=== PATIENT | female | born 1940 | race Caucasian/White ===

== ENCOUNTER 2016-07-22 15:57 | Emergency (ER) | payer MEDICARE ==
[2016-07-22] MEDS ORDERED: IPRATROPIUM/ALBUTEROL 0.5-2.5 MG/3 ML AMPUL NEB ONE ×2 (16:14→16:44)
[2016-07-22] MEDS ORDERED: PREDNISONE 20 MG TABLET PO ONE (16:14)
[2016-07-22] MEDS ORDERED: ASPIRIN 81 MG TABLET, CHEWABLE PO ONE (16:14)
--- NOTE | 2016-07-22 16:15 | ER Document Report ---
ED Medical Screen (RME) - General Stated Complaint: WEAKNESS Mode of Arrival: Wheelchair Information source: Patient Notes: Patient had a cough for the past 6 days. Patient's had a fever off and on. hx: Leukemia, MDS, postherpetic neuralgia I have greeted and performed a rapid initial assessment of this patient. A comprehensive ED assessment and evaluation of the patient, analysis of test results and completion of the medical decision making process will be conducted by additional ED providers. TRAVEL OUTSIDE OF THE [place] IN LAST 30 DAYS: No - Related Data Allergies/Adverse Reactions: nitrofurantoin macrocrystalline [From Macrobid] Allergy (Severe, Verified 16:11) Hives, breathing problems Sulfa (Sulfonamide Antibiotics) Allergy (Severe, Verified 07/22/16 16:11) Iodinated Contrast Media - Oral and [IV Dye, Iodine Containing] Allergy ( Intermediate, Verified 07/22/16 16:11) Hives Tetanus Vaccines and Toxoid [Tetanus] Allergy (Verified 07/22/16 16:11) Past Medical History - Past Medical History Cardiac Medical History: Denies: Hx Coronary Artery Disease, Hx Heart Attack, Hx Hypertension Pulmonary Medical History: Reports: Hx Bronchitis, Hx Pneumonia Denies: Hx Asthma, Hx COPD Neurological Medical History: Denies: Hx Cerebrovascular Accident, Hx Seizures Malignancy Medical History: Reports: Hx Leukemia GI Medical History: Reports: Hx Irritable Bowel Musculoskeltal Medical History: Reports Hx Arthritis, Reports Hx Fibromyalgia, Reports Hx Musculoskeletal Trauma Psychiatric Medical History: Reports: Hx Anxiety Past Surgical History: Reports: Hx Abdominal Surgery - colon resection, Hx Appendectomy, Hx Bowel Surgery - colectomy, Hx Breast Surgery - L breast lump; non-cancerous, Hx Cholecystectomy, Hx Hysterectomy, Hx Orthopedic Surgery - L knee--torn meniscus, Hx Tonsillectomy - Immunizations Immunizations up to date: Yes Hx Diphtheria, Pertussis, Tetanus Vaccination: Yes - 2010 allergic to it Physical Exam - Respiratory Respiratory status: No respiratory distress Chest status: Pain with cough Breath sounds: Rhonchi, Wheezing
[2016-07-22] MEDS ORDERED: ONDANSETRON HCL INJ/PF 4 MG/2 ML SDV IV ONE (16:44)
[2016-07-22 17:40] LABS: HEMATOCRIT 38.3 % (36.0-47.0); HEMOGLOBIN 13.1 g/dL (12.0-15.5); MEAN CORPUSCULAR HEMOGLOBIN 30.2 pg (27.0-33.4); MEAN CORPUSCULAR HGB CONC 34.2 g/dL (32.0-36.0); MEAN CORPUSCULAR VOLUME 88 fl (80-97); RED BLOOD COUNT 4.33 10^6/uL (3.72-5.28); WHITE BLOOD COUNT 4.3 10^3/uL (4.0-10.5)
[2016-07-22 18:02] LABS: ALANINE AMINOTRANSFERASE 210 U/L (9-52); ALBUMIN 3.5 g/dL (3.5-5.0); ALKALINE PHOSPHATASE 170 U/L (38-126); ANION GAP 10 (5-19); ASPARTATE AMINO TRANSFERASE 193 U/L (14-36); BILIRUBIN,TOTAL 1.1 mg/dL (0.2-1.3); BLOOD UREA NITROGEN 10 mg/dL (7-20); CALCIUM 9.4 mg/dL (8.4-10.2); CARBON DIOXIDE 29 mmol/L (22-30); CHLORIDE 98 mmol/L (98-107); CREATINE KINASE 20 U/L (30-135); CREATININE RESULT 0.79 mg/dL (0.52-1.25); GLUCOSE 154 mg/dL (75-110); POTASSIUM 3.8 mmol/L (3.6-5.0); SODIUM 136.5 mmol/L (137-145); TOTAL PROTEIN 6.5 g/dL (6.3-8.2)
--- NOTE | 2016-07-22 18:07 | ER Document Report ---
ED Respiratory Problem - General Chief Complaint: Cough Stated Complaint: WEAKNESS Mode of Arrival: Wheelchair Notes: The patient is a 75-year-old female, past medical history leukemia (in remission ), fibromyalgia, HTN, bronchitis, IBS, presents with 1 week of dry cough and nausea. She ran out of her albuterol. She is on multiple doses of pain medication including by mouth Dilaudid and [place]. She denies vomiting, fevers, vomiting, chest pain, back pain, leg swelling, sputum or rash. TRAVEL OUTSIDE OF THE [place] IN LAST 30 DAYS: No - Related Data Allergies/Adverse Reactions: nitrofurantoin macrocrystalline [From Macrobid] Allergy (Severe, Verified 16:11) Hives, breathing problems Sulfa (Sulfonamide Antibiotics) Allergy (Severe, Verified 07/22/16 16:11) Iodinated Contrast Media - Oral and [IV Dye, Iodine Containing] Allergy ( Intermediate, Verified 07/22/16 16:11) Hives Tetanus Vaccines and Toxoid [Tetanus] Allergy (Verified 07/22/16 16:11) Past Medical History - General Information source: Patient - Social History Smoking Status: Unknown if Ever Smoked Chew tobacco use (# tins/day): No Frequency of alcohol use: None Drug Abuse: None Family History: Arthritis, CAD, CVA, DM, Hyperlipidemia, Hypertension, Malignancy Patient has suicidal ideation: No Patient has homicidal ideation: No - Past Medical History Cardiac Medical History: Denies: Hx Coronary Artery Disease, Hx Heart Attack, Hx Hypertension Pulmonary Medical History: Reports: Hx Bronchitis, Hx Pneumonia Denies: Hx Asthma, Hx COPD Neurological Medical History: Denies: Hx Cerebrovascular Accident, Hx Seizures Renal/ Medical History: Denies: Hx Peritoneal Dialysis Malignancy Medical History: Reports: Hx Leukemia GI Medical History: Reports: Hx Irritable Bowel Musculoskeltal Medical History: Reports Hx Arthritis, Reports Hx Fibromyalgia, Reports Hx Musculoskeletal Trauma Psychiatric Medical History: Reports: Hx Anxiety Past Surgical History: Reports: Hx Abdominal Surgery - colon resection, Hx Appendectomy, Hx Bowel Surgery - colectomy, Hx Breast Surgery - L breast lump; non-cancerous, Hx Cholecystectomy, Hx Hysterectomy, Hx Orthopedic Surgery - L knee--torn meniscus, Hx Tonsillectomy - Immunizations Immunizations up to date: Yes Hx Diphtheria, Pertussis, Tetanus Vaccination: Yes - 2010 allergic to it Review of Systems - Review of Systems Notes: REVIEW OF SYSTEMS: CONSTITUTIONAL: -fevers, -chills EENT: -eye pain, -difficulty swallowing, -nasal congestion CARDIOVASCULAR:-chest pain, -syncope. RESPIRATORY: +cough, -SOB GASTROINTESTINAL: -abdominal pain, +nausea, -vomiting, -diarrhea GENITOURINARY: -dysuria, -hematuria MUSCULOSKELETAL: -back pain, -neck pain SKIN: -rash or skin lesions. HEMATOLOGIC: -easy bruising or bleeding. LYMPHATIC: -swollen, enlarged glands. NEUROLOGICAL: -altered mental status or loss of consciousness, -headache, - neurologic symptoms PSYCHIATRIC: -anxiety, -depression. ALL OTHER SYSTEMS REVIEWED AND NEGATIVE. Physical Exam - Vital signs Vitals: Temp Pulse Resp BP Pulse Ox 97.8 F 113 H 17 124/80 98 07/22/16 16:12 07/22/16 16:12 07/22/16 16:12 07/22/16 16:12 07/22/16 16:12 - Notes Notes: PHYSICAL EXAMINATION: GENERAL: Well-appearing, well-nourished and in no acute distress. HEAD: Atraumatic, normocephalic. EYES: Pupils equal round and reactive to light, extraocular movements intact, sclera anicteric, conjunctiva are normal. ENT: nares patent, oropharynx clear without exudates. Moist mucous membranes. NECK: Normal range of motion, supple without lymphadenopathy LUNGS: B/L rhonchi and mild end-expiratory wheezing. No respiratory distress. HEART: Regular rate and rhythm without murmurs ABDOMEN: Soft, nontender, normoactive bowel sounds. No guarding, no rebound. No masses appreciated. EXTREMITIES: Normal range of motion, no pitting or edema. No cyanosis. NEUROLOGICAL: Cranial nerves grossly intact. Normal speech, normal gait. Normal sensory, motor, and reflex exams. PSYCH: Normal mood, normal affect. SKIN: Warm, Dry, normal turgor, no rashes or lesions noted. Course - Re-evaluation Re-evalutation: Patient feels much better after prednisone and albuterol. No respiratory distress and no pneumonia on x-ray. Family requesting refill of her Zofran. She is tolerating fluids without nausea or vomiting. Elevated liver enzymes are at baseline and consistent with her fatty liver disease. She denies any chest pain and troponin is negative. Her tachycardia resolved down to 80. Will discharge home with follow-up at primary care physician. Given strict return precautions and patient and understand. Also provided a copy of her labs and x-ray results. - Vital Signs Vital signs: Temp Pulse Resp BP Pulse Ox 97.8 F 113 H 15 124/80 92 07/22/16 16:12 07/22/16 16:12 07/22/16 18:00 07/22/16 16:12 07/22/16 18:00 - Laboratory Result Diagrams: 07/22/16 17:04 07/22/16 17:04 Laboratory results interpreted by me: 07/22/16 07/22/16 17:04 17:04 RDW 15.0 H Plt Count 82 L Seg Neuts % (Manual) 31 L Band Neutrophils % 1 L Lymphocytes % (Manual) 46 H Monocytes % (Manual) 17 H Abs Neuts (Manual) 1.4 L Sodium 136.5 L Glucose 154 H AST 193 H ALT 210 H Alkaline Phosphatase 170 H Creatine Kinase 20 L - Diagnostic Test Radiology reviewed: Image reviewed, Reports reviewed Radiology results interpreted by me: CXR: NAD - EKG Interpretation by Me EKG shows normal: Sinus rhythm, Intervals, QRS Complexes, ST-T Waves [place]/QRS: Left axis deviation Discharge - Discharge Clinical Impression: Bronchitis Condition: Good Disposition: HOME, SELF-CARE Additional Instructions: BRONCHITIS: You have acute bronchitis. This disease is an infection or inflammation of the air passageways in your lungs. Symptoms usually include cough, low grade fever, shortness of breath, and wheezing. The cough usually persists for a couple of weeks. Most cases of bronchitis get better without antibiotics. We prescribe antibiotics when we believe bacteria are damaging your airways, or if there's high risk the bronchitis will worsen into pneumonia. Increase your fluid intake. A cool mist humidifier may make your lungs more comfortable. An expectorant (cough medicine that loosens phlegm) can help. If you smoke, STOP!!! Recovery from bronchitis can be somewhat slow, but you should see improvement within a day or two. Repeated episodes of bronchitis may result in lung damage -- for example, chronic bronchitis, recurrent pneumonias, or emphysema. Call the doctor if you develop increasing fever, shortness of breath, chest pain, bloody sputum, or otherwise worsen. If you have not improved at all after several days, contact the physician. BRONCHITIS WITH BRONCHOSPASM (WHEEZING): You have bronchitis with bronchospasm (wheezing). Sometimes people develop wheezing with a chest cold. This occurs either because of an underlying tendency toward asthma or because the virus itself irritates the bronchial tubes. This irritation causes cough, shortness of breath, and wheezing. Emergency treatment of bronchospasm may include adrenaline shots or bronchodilator aerosol. You may feel lightheaded and have a rapid pulse for an hour or two. Rest and get plenty of fluids. At home, we'll treat you with a bronchodilator inhaler. Corticosteroids may be required for some patients. Until you recover, avoid chemical fumes, dusts, pollens, and exercising in very cold or dry air. If you smoke, stop now! Most cases of bronchitis get better without antibiotics. We prescribe antibiotics when we believe bacteria are damaging your airways, or if there's high risk the bronchitis will worsen into pneumonia. Increase your fluid intake. A cool mist humidifier may make your lungs more comfortable. An expectorant (cough medicine that loosens phlegm) can help. Repeated episodes of bronchitis and bronchospasm may result in lung damage -- for example, chronic bronchitis, recurrent pneumonias, or emphysema. If you develop a fever, increased wheezing, chest pain, or severe shortness of breath, you should contact the doctor immediately. INHALED BRONCHODILATORS: You have received a treatment of and/or prescription for an inhaled bronchodilator -- a medication which stimulates the airways in the lung to dilate. This improves the flow of air in asthma, bronchitis, and emphysema. These medicines have some similarity to adrenaline, and can cause similar side effects: shakiness, racing heart, and a sense of nervousness. These side effects decrease with time. Contact your doctor if these side effects are severe. Do not over-use the medicine. Too-frequent use of the inhaler may make it ineffective. Call your doctor if the inhaler is not controlling your symptoms at the prescribed doses. STEROID MEDICATION: You have been given an injection of or oral medicine of the cortisone/ steroid class. This medication is used to control inflammation or allergy. Redd t is usually only given for a short period of time, until the acute process subsides. There are usually no side effects from short-term use of cortisone-like medications. Some persons feel an increased sense of well-being and are not sleepy at bedtime. Long-term use of cortisone medications is best avoided, unless required for a severe condition. If your condition does not remit, or relapses after the course of corticosteroid medication, you should consult your physician. USE OF ACETAMINOPHEN (Tylenol): Acetaminophen may be taken for pain relief or fever control. It's much safer than aspirin, offering a wider range of "safe" dosages. It is safe during . Some brand names are Tylenol, Panadol, Datril, Anacin 3, Tempra, and Liquiprin. Acetaminophen can be repeated every four hours. The following are maximum recommended dosages: >89 pounds or adults 650 mg to 900 mg Acetaminophen can be repeated every four hours. Maximum dose not to exceed 4000 mg a day. SMOKING: If you smoke, you should stop smoking. The tar and chemicals in cigarette smoke are harmful. Smoking has been shown to cause: emphysema chronic bronchitis lung cancer mouth and throat cancer stomach and pancreas cancer premature aging defects In addition, smoking increases ear and lung infections in children of smokers. FOLLOW-UP CARE: If you have been referred to a physician for follow-up care, call the physician s office for an appointment as you were instructed or within the next two days. If you experience worsening or a significant change in your symptoms, notify the physician immediately or return to the Emergency Department at any time for re-evaluation. Prescriptions: Albuterol Sulfate [Proair HFA Inhalation Aerosol 8.5 gm MDI] 2 puff IH Q4H PRN # 1 mdi PRN Reason: Ondansetron [Zofran Odt 4 mg Tablet] 1 - 2 tab PO Q4H PRN #15 tab.rapdis PRN Reason: For Nausea/Vomiting Prednisone [Deltasone 20 mg Tablet] 3 tab PO DAILY 5 Days Referrals: KATIE WEST MD [ACTIVE STAFF] - Follow up as needed
[2016-07-22 18:09] LABS: BAND NEUTROPHILS % (MANUAL) 1 % (3-5); BASOPHILS % (MANUAL) 0 % (0-2); EOSINOPHILS % (MANUAL) 0 % (0-6); LYMPHOCYTES % (MANUAL) 46 % (13-45); TOTAL CELLS COUNTED 100
[2016-07-22 18:13] LABS: ANISOCYTOSIS SLIGHT
[2016-07-22 18:14] LABS: TROPONIN I < 0.012 ng/mL
--- NOTE | 2016-07-22 18:36 | EKG REPORT ---
SEVERITY:- ABNORMAL ECG - PROBABLE SR, ARIFACTS, REC REPEAT EKG VENTRICULAR PREMATURE COMPLEXES LEFT AXIS DEVIATION : Confirmed by: Diaz Reynolds 22-Jul-2016 18:35:24
[2016-07-22 18:47] VITALS: BP 111/55
== END 2016-07-22 18:55 | disposition home or self-care (01) ==
LOC: ER 15:57
DX: J40 Bronchitis, not specified as acute or chronic (principal); R53.1 Weakness; R11.0 Nausea; C95.91 Leukemia, unspecified, in remission; I10 Essential (primary) hypertension; Z88.2 Allergy status to sulfonamides
CPT/HCPCS: 93005; 99285; 96374; 36415; 87040; 82550; 85025; 80053; 84484; 83880; 71020; 93010; A9270 ×3; J2405; J7512; J7620

== ENCOUNTER 2016-08-09 18:03 | Emergency (ER) | payer MEDICARE ==
--- NOTE | 2016-08-09 18:28 | ER Document Report ---
ED Medical Screen (RME) - General Stated Complaint: CHEST PAIN,TROUBLE BREATHING Notes: 75 yo female c/o left sided chest pain radiating into left neck since 1 oclock today. + short of breath. remission AML 5 yrs, IBS, Fibro. no HTN, no DM, nonsmoker, no previous cardiac hx. ASA 325mg taken at home. TRAVEL OUTSIDE OF THE [place] IN LAST 30 DAYS: No - Related Data Allergies/Adverse Reactions: nitrofurantoin macrocrystalline [From Macrobid] Allergy (Severe, Verified 16:11) Hives, breathing problems Sulfa (Sulfonamide Antibiotics) Allergy (Severe, Verified 07/22/16 16:11) Iodinated Contrast Media - Oral and [IV Dye, Iodine Containing] Allergy ( Intermediate, Verified 07/22/16 16:11) Hives Tetanus Vaccines and Toxoid [Tetanus] Allergy (Verified 07/22/16 16:11) Past Medical History - Past Medical History Cardiac Medical History: Denies: Hx Coronary Artery Disease, Hx Heart Attack, Hx Hypertension Pulmonary Medical History: Reports: Hx Bronchitis, Hx Pneumonia Denies: Hx Asthma, Hx COPD Neurological Medical History: Denies: Hx Cerebrovascular Accident, Hx Seizures Renal/ Medical History: Denies: Hx Peritoneal Dialysis Malignancy Medical History: Reports: Hx Leukemia GI Medical History: Reports: Hx Irritable Bowel Musculoskeltal Medical History: Reports Hx Arthritis, Reports Hx Fibromyalgia, Reports Hx Musculoskeletal Trauma Psychiatric Medical History: Reports: Hx Anxiety Past Surgical History: Reports: Hx Abdominal Surgery - colon resection, Hx Appendectomy, Hx Bowel Surgery - colectomy, Hx Breast Surgery - L breast lump; non-cancerous, Hx Cholecystectomy, Hx Hysterectomy, Hx Orthopedic Surgery - L knee--torn meniscus, Hx Tonsillectomy - Immunizations Immunizations up to date: Yes Hx Diphtheria, Pertussis, Tetanus Vaccination: Yes - 2010 allergic to it Physical Exam - Vital signs Vitals: Temp Pulse Resp BP Pulse Ox 97.7 F 63 22 H 137/80 H 94 08/09/16 18:08 08/09/16 18:08 08/09/16 18:08 08/09/16 18:08 08/09/16 18:08 Course - Vital Signs Vital signs: Temp Pulse Resp BP Pulse Ox 97.7 F 63 22 H 137/80 H 94 03/08/17 18:08 08/09/16 18:08 08/09/16 18:08 08/09/16 18:08 08/09/16 18:08
--- NOTE | 2016-08-09 18:40 | ER Document Report ---
ED Cardiac - General Mode of Arrival: Wheelchair Information source: Patient TRAVEL OUTSIDE OF THE [place] IN LAST 30 DAYS: No - HPI Patient complains to provider of: Chest pain Was the onset of pain: Sudden Chest pain radiation location: Left shoulder, Neck Severity now: Severe Chest pain precipitating factors: At Rest Positive cardiac history: No Associated symptoms: Neck pain Relieved by: Nothing <SRIKANTH CLEMENTE - Last Filed: 08/10/16 00:09> <HAYDEN NEWSOME - Last Filed: 08/10/16 03:49> - General Chief Complaint: Chest Pain Stated Complaint: CHEST PAIN,TROUBLE BREATHING Notes: Patient is 75-year-old female presenting to the emergency department concerned of severe chest pain onset last night approximately 12:30 AM. Patient states that this pain radiates into her neck and left shoulder. Patient took an aspirin at 1630 this afternoon. Patient denies cough, but admits to mild constipation for which she took a laxative. Patient denies history of heart disease. Patient has a history of AML and is in remission. (SRIKANTH CLEMENTE) - Related Data Allergies/Adverse Reactions: nitrofurantoin macrocrystalline [From Macrobid] Allergy (Severe, Verified 18:27) Hives, breathing problems Sulfa (Sulfonamide Antibiotics) Allergy (Severe, Verified 08/09/16 18:27) Iodinated Contrast Media - Oral and [IV Dye, Iodine Containing] Allergy ( Intermediate, Verified 08/09/16 18:27) Hives Tetanus Vaccines and Toxoid [Tetanus] Allergy (Verified 08/09/16 18:27) Past Medical History - General Information source: Patient - Social History Smoking Status: Former Smoker Lives with: Spouse/Significant other Family History: Arthritis, CAD, CVA, DM, Hyperlipidemia, Hypertension, Malignancy Patient has suicidal ideation: No Patient has homicidal ideation: No - Past Medical History Cardiac Medical History: Denies: Hx Coronary Artery Disease, Hx Heart Attack, Hx Hypertension Pulmonary Medical History: Reports: Hx Bronchitis, Hx COPD, Hx Pneumonia Denies: Hx Asthma Neurological Medical History: Denies: Hx Cerebrovascular Accident, Hx Seizures Renal/ Medical History: Denies: Hx Peritoneal Dialysis Malignancy Medical History: 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 GI Medical History: Reports: Hx Irritable Bowel Musculoskeltal Medical History: Reports Hx Arthritis, Reports Hx Fibromyalgia, Reports Hx Musculoskeletal Trauma Psychiatric Medical History: Reports: Hx Anxiety Past Surgical History: Reports: Hx Abdominal Surgery - colon resection, Hx Appendectomy, Hx Bowel Surgery - colectomy, Hx Breast Surgery - L breast lump; non-cancerous, Hx Cholecystectomy, Hx Hysterectomy, Hx Orthopedic Surgery - L knee--torn meniscus, Hx Tonsillectomy - Immunizations Immunizations up to date: Yes Hx Diphtheria, Pertussis, Tetanus Vaccination: Yes - 2010 allergic to it <SRIKANTH CLEMENTE - Last Filed: 08/10/16 00:09> Review of Systems - Review of Systems Constitutional: No symptoms reported EENT: No symptoms reported Cardiovascular: See HPI, Chest pain Respiratory: No symptoms reported. denies: Cough Gastrointestinal: See HPI, Constipation Genitourinary: No symptoms reported Female Genitourinary: No symptoms reported Musculoskeletal: See HPI, Neck pain, Other - Left shoulder pain Skin: No symptoms reported Hematologic/Lymphatic: No symptoms reported Neurological/Psychological: No symptoms reported <SRIKANTH CLEMENTE - Last Filed: 08/10/16 00:09> Physical Exam - General General appearance: Alert In distress: Moderate - HEENT Head: Normocephalic, Atraumatic Eyes: Normal Pupils: PERRL - Respiratory Respiratory status: Labored - dyspnea Chest status: Tender - Left chest wall tenderness to palpation. Breath sounds: Normal Chest palpation: Normal - Cardiovascular Rhythm: Tachycardia Heart sounds: Normal auscultation Murmur: No - Abdominal Inspection: Normal Distension: No distension Bowel sounds: Normal Tenderness: Nontender Organomegaly: No organomegaly - Back Back: Normal, Nontender - Extremities General upper extremity: Normal inspection, Nontender, Normal color, Normal ROM , Normal temperature General lower extremity: Normal inspection, Nontender, Normal color, Normal ROM , Normal temperature - Neurological Neuro grossly intact: Yes Cognition: Normal Jimy Coma Scale Eye Opening: Spontaneous Jimy Coma Scale Verbal: Oriented Jimy Coma Scale Motor: Obeys Commands Jimy Coma Scale Total: 15 Speech: Normal - Psychological Associated symptoms: Normal affect, Normal mood - Skin Skin Temperature: Warm Skin Moisture: Diaphoretic Skin Color: Other - [place] <SRIKANTH CLEMENTE - Last Filed: 08/10/16 00:09> Course - Laboratory Result Diagrams: 08/09/16 18:35 08/09/16 18:35 - Consults [facility] Time consulted: 21:22 <SRIKANTH CLEMENTE - Last Filed: 08/10/16 00:09> - Laboratory Result Diagrams: 08/09/16 18:35 08/09/16 18:35 - Diagnostic Test Radiology reviewed: Reports reviewed <HAYDEN NEWSOME - Last Filed: 08/10/16 03:49> - Re-evaluation Re-evalutation: 08/10/16 Patient is a 75-year-old female with a history of AML who presents with left- sided chest pain radiating into her neck and down her arm. Patient states that although she has chronic pain she has never had pain like this before. Patient initially was difficult to get a line on. Patient was given nitroglycerin and Dilaudid. Patient states that nitroglycerin helped her chest pain. Troponin negative 2. No acute findings on EKG except for tachycardia. Patient does have a UTI and apparently had been diagnosed with this. It does not seem related to her chest pain today. Patient was discussed with [facility] for she has gone in the past for her medical care and they have accepted her for transfer for chest pain. Patient is agreeable to this plan and grateful for care. She is medically stable for transfer. Patient has been given Rocephin for her UTI. Patient has an allergy to contrast dye. Nuclear medicine test to evaluate for PE is negative. 08/10/16 04:00 Patient is resting comfortably at this time. Patient is somewhat hypotensive but this is likely from a nitro drip. She is not having chest pain at this time. Medically stable for transfer. Unlikely that [facility] will have beds before 8 AM. Patient care transitioned to Dr. Solorio at 4 AM (HAYDEN NEWSOME) - Vital Signs Vital signs: Temp Pulse Resp BP Pulse Ox 97.7 F 119 H 18 100/57 L 97 08/09/16 18:08 08/10/16 00:30 08/10/16 02:30 08/10/16 02:30 08/10/16 02:30 - Laboratory Laboratory results interpreted by me: 08/09/16 08/09/16 08/10/16 18:35 18:35 00:05 RDW 16.3 H Plt Count 122 L Monocytes % (Manual) 18 H Metamyelocytes % 1 H Abs Monocytes (Manual) 1.6 H Glucose 135 H Total Bilirubin 2.5 H AST 47 H ALT 63 H Alkaline Phosphatase 168 H Lipase 11.9 L Urine Blood SMALL H Urine Nitrite POSITIVE H Ur Leukocyte Esterase MODERATE H - Consults [facility] Reason for consultation: 08/09/16 21:22 Contacted [facility] about patient's case. Recommends transfer and start nitro drip. 08/09/16 23:31 [facility] called back stating that they do not have any beds available and probably won't have any available until tomorrow. (SRIKANTH CLEMENTE) Critical Care Note - Critical Care Note Total time excluding time spent on procedures (mins): 90 - evaluation and management of chest pain with multiple re-evaluations, coordination with transfer center at [facility], multiple re-evaluations, counseling of patient and <HAYDEN NEWSOME - Last Filed: 08/10/16 03:49> Discharge <SRIKANTH CLEMENTE - Last Filed: 08/10/16 00:09> <HAYDEN NEWSOME - Last Filed: 08/10/16 03:49> - Discharge Clinical Impression: Unstable angina UTI (urinary tract infection) Qualifiers: Urinary tract infection type: site unspecified Hematuria presence: without hematuria Qualified Code(s): N39.0 - Urinary tract infection, site not specified Condition: Stable Disposition: [facility] Scribe Attestation: 08/10/16 03:49 I personally performed the services described in the documentation, reviewed and edited the documentation which was dictated to the scribe in my presence, and it accurately records my words and actions. (HAYDEN NEWSOME) Scribe Documentation - Scribe Written by Jj:: Srikanth Clemente 08/09/2016 1840 acting as scribe for :: Inez <SRIKANTH CLEMENTE - Last Filed: 08/10/16 00:09>
[2016-08-09 18:51] LABS: HEMATOCRIT 38.2 % (36.0-47.0); HEMOGLOBIN 13.1 g/dL (12.0-15.5); HGB HCT DIFFERENCE 1.1; MEAN CORPUSCULAR HEMOGLOBIN 30.9 pg (27.0-33.4); MEAN CORPUSCULAR HGB CONC 34.2 g/dL (32.0-36.0); MEAN CORPUSCULAR VOLUME 90 fl (80-97); RED BLOOD COUNT 4.22 10^6/uL (3.72-5.28); RED CELL DISTRIBUTION WIDTH 16.3 % (11.5-14.0); WHITE BLOOD COUNT 9.1 10^3/uL (4.0-10.5)
[2016-08-09] MEDS ORDERED: NITROGLYCERIN 0.4 MG/TAB 25 TAB/BOTTLE SL PRN (18:54)
[2016-08-09 19:03] LABS: ALANINE AMINOTRANSFERASE 63 U/L (9-52); ALBUMIN 4.2 g/dL (3.5-5.0); ALKALINE PHOSPHATASE 168 U/L (38-126); ANION GAP 11 (5-19); ASPARTATE AMINO TRANSFERASE 47 U/L (14-36); BILIRUBIN,TOTAL 2.5 mg/dL (0.2-1.3); BLOOD UREA NITROGEN 10 mg/dL (7-20); CALCIUM 10.1 mg/dL (8.4-10.2); CARBON DIOXIDE 26 mmol/L (22-30); CHLORIDE 104 mmol/L (98-107); CREATININE RESULT 0.71 mg/dL (0.52-1.25); GLUCOSE 135 mg/dL (75-110); LIPASE 11.9 U/L (23-300); POTASSIUM 4.3 mmol/L (3.6-5.0); SODIUM 141.2 mmol/L (137-145); TOTAL PROTEIN 6.7 g/dL (6.3-8.2)
[2016-08-09 19:18] LABS: CREATINE KINASE MB < 0.22 ng/mL (<4.55); TROPONIN I < 0.012 ng/mL
[2016-08-09 19:36] LABS: BASOPHILS % (MANUAL) 0 % (0-2); EOSINOPHILS % (MANUAL) 1 % (0-6); LYMPHOCYTES % (MANUAL) 16 % (13-45); TOTAL CELLS COUNTED 100
[2016-08-09 19:38] LABS: ANISOCYTOSIS 1+; POLYCHROMASIA SLIGHT; TOXIC GRANULATION SLIGHT
[2016-08-09] MEDS ORDERED: HYDROMORPHONE HCL INJ/PF 2 MG/ML AMPULE IV ONE ×2 (19:39→21:13)
[2016-08-09] MEDS ORDERED: NORMAL SALINE 1000 ML 500 ML IV ONE (19:39)
[2016-08-09] MEDS ORDERED: ONDANSETRON 4 MG TAB.RAPDIS PO ONE (20:22)
[2016-08-09] MEDS ORDERED: HYDROMORPHONE HCL INJ/PF 2 MG/ML AMPULE IM ONE (20:23)
[2016-08-09 20:44] LABS: PROTHROMBIN TIME 13.2 SEC (11.4-15.4)
[2016-08-09 20:45] LABS: PARTIAL THROMBOPLASTIN TIME 32.8 SEC (23.5-35.8)
[2016-08-09] MEDS ORDERED: NITROGLYCERIN/D5W 250 ML IV PRN (21:18)
--- NOTE | 2016-08-09 21:38 | EKG REPORT ---
SEVERITY:- ABNORMAL ECG - SINUS TACHYCARDIA VENTRICULAR PREMATURE COMPLEX RUPAL, CONSIDER BIATRIAL ABNORMALITIES BORDERLINE LEFT AXIS DEVIATION PROBABLE POSTERIOR INFARCT NONSPECIFIC T ABNORMALITIES, LATERAL LEADS : Confirmed by: Diaz Reynolds 09-Aug-2016 21:36:54
--- NOTE | 2016-08-09 21:38 | EKG REPORT ---
SEVERITY:- ABNORMAL ECG - SINUS TACHYCARDIA PROBABLE POSTERIOR INFARCT : Confirmed by: Diaz Reynolds 09-Aug-2016 21:37:02
[2016-08-10 00:40] LABS: APPEARANCE,URINE CLOUDY; BILIRUBIN,URINE NEGATIVE (NEGATIVE); GLUCOSE, URINE NEGATIVE (NEGATIVE); KETONES,URINE NEGATIVE (NEGATIVE); LEUKOCYTE ESTERASE,URINE MODERATE (NEGATIVE); NITRITE,URINE POSITIVE (NEGATIVE); PROTEIN,URINE NEGATIVE (NEGATIVE); URINE SPECIFIC GRAVITY 1.015; UROBILINOGEN,URINE NEGATIVE mg/dL (<2.0)
[2016-08-10] MEDS ORDERED: CEFTRIAXONE 1 GM/D5W RTU 50 ML IV ONE (02:29)
[2016-08-10] MEDS ORDERED: LIDOCAINE 1% INJ-PF (10 MG/ML) 30 ML SDV INFIL ONE (03:46)
[2016-08-10] MEDS ORDERED: CEFTRIAXONE INJ 1000 MG VIAL IM ONE (03:46)
[2016-08-10] MEDS: FENTANYL CITRATE INJ/PF 100 MCG/2 ML AMPUL IV PRN ×3 (05:46→15:21)
[2016-08-10] MEDS ORDERED: CEPHALEXIN 500 MG CAPSULE PO SCH (18:00)
[2016-08-10] MEDS ORDERED: ASPIRIN 325 MG TABLET, ENT COATED PO ONE (18:30)
--- NOTE | 2016-08-10 18:33 | PDOC H&P/TRANSFER SUM ---
General Admission Date/PCP: 08/10/2016 PCP: Dr. Ishan Ramirez Transfer Date: 08/10/16 Accepting Facility: [facility] Accepting Physician: Dr. Keith Resuscitation Status: Full Code Chief Complaint: Chest pain - Transfer Diagnosis (1) Unstable angina Current Visit: Yes Diagnosis Summary: Continue aspirin. Start Lipitor 40 mg daily. Continue nitroglycerin drip for symptomatically relief. Hold off on Lovenox for now secondary to thrombocytopenia. Transfer patient to tertiary care facility for interventional management. 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 (2) Chest pain Current Visit: Yes (3) Acute myeloid leukemia Current Visit: Yes Diagnosis Summary: This is currently in remission and is normally followed by Dr. Lacy at [facility]. (4) Anemia Current Visit: Yes (5) Thrombocytopenia Current Visit: Yes (6) UTI (urinary tract infection) Current Visit: Yes Diagnosis Summary: Patient was given one dose of IV Rocephin in the emergency department. She has been started on Keflex 500 mg by mouth every 6 hours. Culture is pending. - Transfer Medications Home Medications: Hydromorphone HCl [Dilaudid] 8 mg PO QID 03/24/13 Hydrocodone Bit/Acetaminophen [Hydrocodon-Acetaminophen 5-325] 1 each PO PRN PRN 05/02/14 Temazepam [Restoril] 30 mg PO QHS 05/02/14 Transfer Medications: Current Medications Aspirin (Ecotrin 325 Mg Ec Tablet) 325 mg PO DAILY ELIJAH Stop: 09/09/16 17:29 Fentanyl Citrate (Sublimaze Inj/Pf 100 Mcg/2 Ml Ampule) 25 mcg IV Q2HP PRN Stop: 08/12/16 05:42 Last Admin: 08/10/16 15:21 Dose: 25 mcg Nitroglycerin/Dextrose (Ntg Rtu 50 Mg/D5w 250 Ml Iv Premix Bottle) 250 mls @ 0 mls/hr IV CONTINUOUS PRN; Titrate PRN Reason: THIS MED IS NOT "PRN" Stop: 09/08/16 21:17 Last Admin: 08/09/16 22:15 Dose: 250 ml Nitroglycerin (Nitrostat 0.4 Mg (1/150 Gr) Tabs 25/Bottle) 1 tab SL ASDIR PRN Stop: 08/10/16 18:55 Last Admin: 08/09/16 19:02 Dose: 1 tab Keflex 500 mg by mouth every 6 hours Lipitor 40 mg by mouth nightly - Allergies Allergies/Adverse Reactions: nitrofurantoin macrocrystalline [From Macrobid] Allergy (Severe, Verified 18:27) Hives, breathing problems Sulfa (Sulfonamide Antibiotics) Allergy (Severe, Verified 08/09/16 18:27) Iodinated Contrast Media - Oral and [IV Dye, Iodine Containing] Allergy ( Intermediate, Verified 08/09/16 18:27) Hives Tetanus Vaccines and Toxoid [Tetanus] Allergy (Verified 08/09/16 18:27) - Diet/Activity Discharge Diet: Cardiac Discharge Activity: Bedrest History of Present Illness Admission Date/PCP: Dr. Ishan Ramirez Patient complains of: Chest pain History of Present Illness: KIRILL ESPARZA is a 75 year old female with past medical history of acute myeloid leukemia currently in remission, anemia of chronic disease, chronic thrombocytopenia, chronic pain secondary to rheumatoid arthritis, irritable bowel syndrome that presents to the emergency department with sudden onset on of substernal chest pain radiating to left neck. Patient was diagnosed by emergency department provider as having unstable angina on presentation and patient was accepted in transfer to [facility] directly from the emergency department on 08/09/2016. As of 08/10/2016 [facility] states that they are on divert and have no beds available to transfer patient. Patient has been placed on a nitroglycerin drip in the emergency department with some relief of her chest pain but she still has ongoing chest pain despite nitroglycerin drip. She has also been given aspirin in the emergency department. Lovenox was not initiated secondary to thrombocytopenia. As patient did not have a bed for transfer the hospitalist service was called to place patient in observation status until bed was available at [facility]. After further discussion with patient and patient's decision was made to look for other facilities that could provide more prompt care for patients unstable angina. Family specifically chooses [facility]. Past Medical History Cardiac Medical History: Denies: Coronary Artery Disease, Myocardial Infarction, Hypertension Pulmonary Medical History: Reports: Asthma, Pneumonia Neurological Medical History: Denies: Seizures Malignancy Medical History: Reports: Leukemia - AML Musculoskeltal Medical History: Reports: Arthritis, Fibromyalgia Psychiatric Medical History: Hematology: Reports: Anemia, Other - Chronic thrombocytopenia, myelodysplastic disorder Past Surgical History Past Surgical History: Reports: Appendectomy, Cholecystectomy, Hysterectomy, Orthopedic Surgery - L knee--torn meniscus, Tonsillectomy Social History Information Source: Patient Lives with: Spouse/Significant other Smoking Status: Former Smoker Frequency of Alcohol Use: None Hx Recreational Drug Use: No Hx Prescription Drug Abuse: No - Advance Directive Resuscitation Status: Full Code Family History Family History: Arthritis, CAD, CVA, DM, Hyperlipidemia, Hypertension, Malignancy Parental Family History Reviewed: Yes Children Family History Reviewed: Yes Sibling(s) Family History Reviewed.: Yes Review of Systems Constitutional: ABSENT: chills, fever(s), headache(s), weight gain, weight loss Eyes: ABSENT: visual disturbances Ears: ABSENT: hearing changes Cardiovascular: PRESENT: chest pain. ABSENT: dyspnea on exertion, edema, orthropnea, palpitations Respiratory: ABSENT: cough, hemoptysis Gastrointestinal: ABSENT: abdominal pain, constipation, diarrhea, hematemesis, hematochezia, nausea, vomiting Genitourinary: ABSENT: dysuria, hematuria Musculoskeletal: ABSENT: joint swelling Integumentary: ABSENT: rash, wounds Neurological: ABSENT: abnormal gait, abnormal speech, confusion, dizziness, focal weakness, syncope Psychiatric: ABSENT: anxiety, depression, homidical ideation, suicidal ideation Endocrine: ABSENT: cold intolerance, heat intolerance, polydipsia, polyuria Hematologic/Lymphatic: ABSENT: easy bleeding, easy bruising Physical Exam Vital Signs: Temp Pulse Resp BP Pulse Ox 98.2 F 99 18 105/61 95 08/10/16 08:50 08/10/16 15:20 08/10/16 15:20 08/10/16 15:20 08/10/16 15:20 Intake & Output 08/09/16 08/10/16 08/11/16 06:59 06:59 06:59 Weight 84.3 kg PHYSICAL EXAM: GENERAL: Appears well, no acute distress HEENT: Normocephalic, no scleral icterus, conjunctiva clear, EOEM intact, PERRLA , moist mucous membranes NECK: trachea midline, no thyromegally RESPIRATORY: Clear to auscultation, no wheezes/rhonchi CARDIAC: Regular rate and rhythm, no murmur/ashanti/rub ABDOMEN: Soft, no distension, no tenderness, no guarding, normal bowel sounds, negative Jaime sign RECTAL: deferred : deferred EXTREMITIES: No edema, cyanosis, clubbing MUSCULOSKELETAL: No joint swelling or deformity VASCULAR: normal peripheral pulses NEUROLOGIC: Alert, oriented to person/place/time, normal speech, cranial nerves grossly intact, 5/5 strength in all extremities, tactile sensation intact in all extremities SKIN: No rash, no wounds, no worrisome skin lesions PSYCHIATRIC: Normal mood, normal affect Results Laboratory Results: 08/09/16 18:35 08/09/16 18:35 08/09/16 08/09/16 08/10/16 18:35 18:35 00:05 WBC 9.1 RBC 4.22 Hgb 13.1 Hct 38.2 MCV 90 MCH 30.9 MCHC 34.2 RDW 16.3 H Plt Count 122 L Seg Neutrophils % Not Reportable Lymphocytes % Not Reportable Monocytes % Not Reportable Eosinophils % Not Reportable Basophils % Not Reportable Absolute Neutrophils Not Reportable Absolute Lymphocytes Not Reportable Absolute Monocytes Not Reportable Absolute Eosinophils Not Reportable Absolute Basophils Not Reportable Sodium 141.2 Potassium 4.3 Chloride 104 Carbon Dioxide 26 Anion Gap 11 BUN 10 Creatinine 0.71 Est GFR ( Amer) > 60 Est GFR (Non-Af Amer) > 60 Glucose 135 H Calcium 10.1 Total Bilirubin 2.5 H AST 47 H ALT 63 H Alkaline Phosphatase 168 H Total Protein 6.7 Albumin 4.2 Lipase 11.9 L Urine Color DARK YELLOW Urine Appearance CLOUDY Urine pH 5.0 Ur Specific [place] 1.015 Urine Protein NEGATIVE Urine Glucose (UA) NEGATIVE Urine Ketones NEGATIVE Urine Blood SMALL H Urine Nitrite POSITIVE H Ur Leukocyte Esterase MODERATE H Urine WBC (Auto) 61 Urine RBC (Auto) 1 08/09/16 08/09/16 18:35 20:45 CK-MB (CK-2) < 0.22 Troponin I < 0.012 < 0.012 EKG Comments: Sinus tachycardia, left atrial abnormality, probable posterior infarct (this finding is new as compared to EKG from 2013) Impressions: Chest X-Ray 08/09/16 00:00 IMPRESSION: NO ACUTE RADIOGRAPHIC FINDING IN THE CHEST. Lung Scan-VQ NM 08/09/16 23:28 IMPRESSION: NORMAL VENTILATION-PERFUSION LUNG SCAN. NEGATIVE FOR PULMONARY EMBOLI. Assessment & Plan - Time Time Spent: Greater than 70 Minutes Anticipated dischagre: Casey Lyman Within: when bed available - Plan Summary Plan Summary: Patient will be transferred to tertiary care facility for interventional cardiology evaluation given unstable angina with ongoing chest pain despite nitroglycerin drip.
[2016-08-10] MEDS ORDERED: FENTANYL CITRATE INJ/PF 100 MCG/2 ML AMPUL IV PRN (18:35)
--- NOTE | 2016-08-10 19:59 | EKG REPORT ---
SEVERITY:- OTHERWISE NORMAL ECG - SINUS TACHYCARDIA : Confirmed by: Diaz Reynolds 10-Aug-2016 19:58:04
--- NOTE | 2016-08-10 20:36 | ER Document Report ---
Doctor's Note Notes: 08/10/16 20:35 Patient with stable vital signs, resting comfortably, reports feeling pain all over, but denies chest pain or shortness of breath at the present time, flight cruise in the emergency room to transport patient to tertiary care center, patient is stable for transport
[2016-08-10 20:56] VITALS: BP 116/68
[2016-08-10 21:08] LABS: HEMATOCRIT 31.5 % (36.0-47.0); HGB HCT DIFFERENCE 0.6; MEAN CORPUSCULAR HEMOGLOBIN 30.6 pg (27.0-33.4); MEAN CORPUSCULAR VOLUME 90 fl (80-97); RED CELL DISTRIBUTION WIDTH 16.2 % (11.5-14.0); WHITE BLOOD COUNT 5.8 10^3/uL (4.0-10.5)
[2016-08-10 21:25] LABS: ALANINE AMINOTRANSFERASE 52 U/L (9-52); ALBUMIN 3.2 g/dL (3.5-5.0); ALKALINE PHOSPHATASE 119 U/L (38-126); ANION GAP 8 (5-19); ASPARTATE AMINO TRANSFERASE 42 U/L (14-36); BLOOD UREA NITROGEN 13 mg/dL (7-20); CALCIUM 9.2 mg/dL (8.4-10.2); CARBON DIOXIDE 27 mmol/L (22-30); CHLORIDE 106 mmol/L (98-107); CHOLESTEROL 133.35 mg/dL (0-200); CREATINE KINASE 168 U/L (30-135); CREATININE RESULT 0.76 mg/dL (0.52-1.25); Direct HDL 47 mg/dL (>40); GLUCOSE 134 mg/dL (75-110); POTASSIUM 4.3 mmol/L (3.6-5.0); SODIUM 140.5 mmol/L (137-145); TOTAL PROTEIN 5.6 g/dL (6.3-8.2); TRIGLYCERIDES 58 mg/dL (<150)
[2016-08-10 21:31] LABS: HEMOGLOBIN 10.7 g/dL (12.0-15.5)
[2016-08-10 21:36] LABS: DIRECT LDL 68 mg/dL (<100)
[2016-08-10 21:48] LABS: BASOPHILS % (MANUAL) 0 % (0-2); EOSINOPHILS % (MANUAL) 1 % (0-6); LYMPHOCYTES % (MANUAL) 24 % (13-45); TOTAL CELLS COUNTED 100
[2016-08-10 21:49] LABS: ANISOCYTOSIS 1+; CREATINE KINASE MB 1.04 ng/mL (<4.55); POLYCHROMASIA SLIGHT; TOXIC GRANULATION SLIGHT
[2016-08-10 21:51] LABS: TROPONIN I < 0.012 ng/mL
[2016-08-10] MEDS ORDERED: ATORVASTATIN CALCIUM 40 MG TABLET PO SCH (22:00)
[2016-08-11] MEDS ORDERED: ASPIRIN 325 MG TABLET, ENT COATED PO SCH (10:00)
== END 2016-08-10 20:56 | disposition admitted as inpatient to this hospital (09) ==
LOC: ER 18:03
DX: I20.0 Unstable angina (principal); N39.0 Urinary tract infection, site not specified; M54.2 Cervicalgia; M25.512 Pain in left shoulder; R00.0 Tachycardia, unspecified; I95.9 Hypotension, unspecified; K59.00 Constipation, unspecified; C95.01 Acute leukemia of unspecified cell type, in remission; G89.29 Other chronic pain; Z88.1 Allergy status to other antibiotic agents; Z88.2 Allergy status to sulfonamides; Z91.041 Radiographic dye allergy status; Z88.7 Allergy status to serum and vaccine; Z87.891 Personal history of nicotine dependence; Z82.49 Family history of ischemic heart disease and other diseases of the circulatory system
CPT/HCPCS: 93005 ×2; 96376; 99291; 99292; 96372; 96375; 96365; 96366; 36415; 87086; 82553; 82550; 83690; 85025; 85610; 85730; 87088; 80053; 81001; 84484; 87186; 80061; 71010; 78582; 93010 ×2; A9540; A9567; A9270 ×3; J3010; J3490 ×2; J1170; J0696; J7030; Q9969; S0119

== ENCOUNTER 2017-03-13 15:09 | Emergency (ER) | payer MEDICARE ==
--- NOTE | 2017-03-13 16:48 | ER Document Report ---
ED Medical Screen (RME) - General Chief Complaint: Altered Mental Status Stated Complaint: ALTERED MENTAL STATUS Time Seen by Provider: 03/13/17 16:45 Notes: Patient is brought in by family. Family states starting last evening patient began to have trouble concentrating and focusing. Today she has been hallucinating and talking to people that are not there and reaching for objects that are not there. Family states she is better now but still somewhat confused. They also state that she appears somewhat more incoordinated, for example they state when she eats she is getting food all over herself which is not normal. Patient is a pain management patient is on chronic pain meds. She did recently stop her sleeping medication which is Restoril. Patient has a history of chronic UTIs and has an appointment with urology at the end of the week. Patient also has a history of chemotherapy 8 years ago for AML. 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 TRAVEL OUTSIDE OF THE [place] IN LAST 30 DAYS: No - Related Data Allergies/Adverse Reactions: nitrofurantoin macrocrystalline [From Macrobid] Allergy (Severe, Verified 18:27) Hives, breathing problems Sulfa (Sulfonamide Antibiotics) Allergy (Severe, Verified 08/09/16 18:27) Iodinated Contrast- Oral and IV Dye [IV Dye, Iodine Containing] Allergy ( Intermediate, Verified 08/09/16 18:27) Hives Tetanus Vaccines and Toxoid [Tetanus] Allergy (Verified 08/09/16 18:27) Past Medical History - Social History Chew tobacco use (# tins/day): No Frequency of alcohol use: None Drug Abuse: None - Past Medical History Cardiac Medical History: Denies: Hx Coronary Artery Disease, Hx Heart Attack, Hx Hypertension Pulmonary Medical History: Reports: Hx Asthma, Hx Bronchitis, Hx COPD, Hx Pneumonia Neurological Medical History: Denies: Hx Cerebrovascular Accident, Hx Seizures Renal/ Medical History: Denies: Hx Peritoneal Dialysis Malignancy Medical History: 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 GI Medical History: Reports: Hx Irritable Bowel Musculoskeltal Medical History: Reports Hx Arthritis, Reports Hx Fibromyalgia, Reports Hx Musculoskeletal Trauma Psychiatric Medical History: Reports: Hx Anxiety Past Surgical History: Reports: Hx Abdominal Surgery - colon resection, Hx Appendectomy, Hx Bowel Surgery - colectomy, Hx Breast Surgery - L breast lump; non-cancerous, Hx Cholecystectomy, Hx Hysterectomy, Hx Orthopedic Surgery - L knee--torn meniscus, Hx Tonsillectomy - Immunizations Immunizations up to date: Yes Hx Diphtheria, Pertussis, Tetanus Vaccination: Yes - 2009 allergic to it Physical Exam - Vital signs Vitals: Temp Pulse Resp BP Pulse Ox 98.4 F 98 16 134/63 H 97 03/13/17 15:18 03/13/17 15:18 03/13/17 15:18 03/13/17 15:18 03/13/17 15:18 Course - Vital Signs Vital signs: Temp Pulse Resp BP Pulse Ox 98.4 F 98 16 134/63 H 97 03/13/17 15:18 03/13/17 15:18 03/13/17 15:18 03/13/17 15:18 03/13/17 15:18
[2017-03-13] MEDS ORDERED: NORMAL SALINE 1000 ML 1,000 ML IV ONE (18:16)
--- NOTE | 2017-03-13 18:22 | ER Document Report ---
ED General - General Chief Complaint: Altered Mental Status Stated Complaint: ALTERED MENTAL STATUS Time Seen by Provider: 03/13/17 16:45 Notes: Patient is a 76-year-old female, PMHx multiple UTIs, chronic pain on oral dilaudid and [place], fibromyalgia, presents after she was having trouble concentrating and focusing that started at 4 AM. She was also having visual hallucinations earlier today and reaching for objects that are not there. The family states that she is better now but still confused. She appears more uncoordinated, such that she is eating food all over herself which is not normal. She recently stopped her Restoril. Patient denies chest pain, shortness of breath, focal weakness, numbness, blurry vision, difficulty swallowing, fevers, abdominal pain or back pain. TRAVEL OUTSIDE OF THE [place] IN LAST 30 DAYS: No - Related Data Allergies/Adverse Reactions: nitrofurantoin macrocrystalline [From Macrobid] Allergy (Severe, Verified 18:27) Hives, breathing problems Sulfa (Sulfonamide Antibiotics) Allergy (Severe, Verified 08/09/16 18:27) Iodinated Contrast- Oral and IV Dye [IV Dye, Iodine Containing] Allergy ( Intermediate, Verified 08/09/16 18:27) Hives Tetanus Vaccines and Toxoid [Tetanus] Allergy (Verified 08/09/16 18:27) Past Medical History - General Information source: Patient, Relative - Social History Smoking Status: Never Smoker Chew tobacco use (# tins/day): No Frequency of alcohol use: None Drug Abuse: None Family History: Arthritis, CAD, CVA, DM, Hyperlipidemia, Hypertension, Malignancy - Past Medical History Cardiac Medical History: Denies: Hx Coronary Artery Disease, Hx Heart Attack, Hx Hypertension Pulmonary Medical History: Reports: Hx Asthma, Hx Bronchitis, Hx COPD, Hx Pneumonia Neurological Medical History: Denies: Hx Cerebrovascular Accident, Hx Seizures Renal/ Medical History: Denies: Hx Peritoneal Dialysis Malignancy Medical History: 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 GI Medical History: Reports: Hx Irritable Bowel Musculoskeltal Medical History: Reports Hx Arthritis, Reports Hx Fibromyalgia, Reports Hx Musculoskeletal Trauma Psychiatric Medical History: Reports: Hx Anxiety Past Surgical History: Reports: Hx Abdominal Surgery - colon resection, Hx Appendectomy, Hx Bowel Surgery - colectomy, Hx Breast Surgery - L breast lump; non-cancerous, Hx Cholecystectomy, Hx Hysterectomy, Hx Orthopedic Surgery - L knee--torn meniscus, Hx Tonsillectomy - Immunizations Immunizations up to date: Yes Hx Diphtheria, Pertussis, Tetanus Vaccination: Yes - 2009 allergic to it Review of Systems - Review of Systems Notes: REVIEW OF SYSTEMS: CONSTITUTIONAL: -fevers, -chills EENT: -eye pain, -difficulty swallowing, -nasal congestion CARDIOVASCULAR:-chest pain, -syncope. RESPIRATORY: -cough, -SOB GASTROINTESTINAL: -abdominal pain, - nausea, -vomiting, -diarrhea GENITOURINARY: -dysuria, -hematuria MUSCULOSKELETAL: -back pain, -neck pain SKIN: -rash or skin lesions. HEMATOLOGIC: -easy bruising or bleeding. LYMPHATIC: -swollen, enlarged glands. NEUROLOGICAL: +AMS, -headache PSYCHIATRIC: -anxiety, -depression. ALL OTHER SYSTEMS REVIEWED AND NEGATIVE. Physical Exam - Vital signs Vitals: Temp Pulse Resp BP Pulse Ox 98.4 F 98 16 134/63 H 97 03/13/17 15:18 03/13/17 15:18 03/13/17 15:18 03/13/17 15:18 03/13/17 15:18 - Notes Notes: PHYSICAL EXAMINATION: GENERAL: Well-appearing, well-nourished and in no acute distress. HEAD: Atraumatic, normocephalic. EYES: Pupils equal round and reactive to light, extraocular movements intact, sclera anicteric, conjunctiva are normal. ENT: nares patent, oropharynx clear without exudates. Moist mucous membranes. NECK: Normal range of motion, supple without lymphadenopathy LUNGS: Breath sounds clear to auscultation bilaterally and equal. No wheezes rales or rhonchi. HEART: Regular rate and rhythm without murmurs ABDOMEN: Soft, nontender, normoactive bowel sounds. No guarding, no rebound. No masses appreciated. EXTREMITIES: Normal range of motion, no pitting or edema. No cyanosis. NEUROLOGICAL: Cranial nerves grossly intact. Normal speech. 5/5 strength in all 4 extremities. No sensory deficits. PSYCH: Normal mood, normal affect. SKIN: Warm, Dry, normal turgor, no rashes or lesions noted. Course - Re-evaluation Re-evalutation: Patient's CT, MRI, blood work and urine do not show any emergent conditions for her AMS. Talking to the daughter and , patient has had these intermittent episodes multiple times after her pain and sleeping medications are changed. Patient is back to baseline. She takes large doses of Dilaudid and oxycodone. Her pain management doctor recently stopped her Restoril because of side effects. Suspect that some of her symptoms may be from her polypharmacy. She has an appointment with urology and primary care physician tomorrow. Vital signs are normal. Given strict return precautions and she understands. - Vital Signs Vital signs: Temp Pulse Resp BP Pulse Ox 98.4 F 98 16 134/63 H 97 03/13/17 15:18 03/13/17 15:18 03/13/17 15:18 03/13/17 15:18 03/13/17 15:18 - Laboratory Result Diagrams: 03/13/17 19:18 03/13/17 19:18 Laboratory results interpreted by me: 03/13/17 03/13/17 03/13/17 15:27 19:18 19:18 RBC 3.69 L Hgb 11.3 L Hct 33.9 L RDW 18.5 H Plt Count 92 L Metamyelocytes % 1 H Glucose 171 H AST 43 H Total Protein 5.9 L Urine Blood SMALL H Ur Leukocyte Esterase TRACE H - Diagnostic Test Radiology reviewed: Image reviewed, Reports reviewed Radiology results interpreted by me: CT Head: NAD Discharge - Discharge Clinical Impression: Altered mental status Qualifiers: Altered mental status type: unspecified Qualified Code(s): R41.82 - Altered mental status, unspecified Condition: Stable Disposition: HOME, SELF-CARE Additional Instructions: Your CAT scan, MRI, urine and blood work do not show any emergent abnormalities. Follow-up with your primary care physician tomorrow as scheduled for further evaluation and treatment and possible medication adjustments. Return to the ER if you have any worsening symptoms or any other concerns. Medication Side Effects Your unpleasant symptoms may be due to a drug you're taking. These symptoms are a common side effect of the medicine. It's not a true allergy. We stop any unnecessary drugs when bothersome side effects occur. Sometimes we'll substitute a different type of drug. In other cases, we must continue the drug. If so, we try to find a way to decrease the side effects. Many side effects decrease with time. Call us if the symptoms don't go away. Referrals: [facility] [Provider Group] - Follow up as needed
--- NOTE | 2017-03-13 18:51 | RADIOLOGY REPORT (SQ) ---
EXAM DESCRIPTION: CT HEAD WITHOUT COMPLETED DATE/TIME: 03/13/2017 6:28 pm REASON FOR STUDY: confusion COMPARISON: None. TECHNIQUE: Axial images acquired through the brain without intravenous contrast. Images reviewed wi th bone, brain and subdural windows. Images stored on PACS. All CT scanners at this facility use dose modulation, iterative reconstruction, and/or weight based d osing when appropriate to reduce radiation dose to as low as reasonably achievable (ALARA). [facility]: Dose Right [facility]: CareDose [facility]: Dose Right [facility]: Teradose 4D [facility]: Smart Zadby RADIATION DOSE: Up-to-date CT equipment and radiation dose reduction techniques were employed. CTDIv ol: 64.6 - 67.0 mGy. DLP: 2216 mGy-cm. mGy. LIMITATIONS: None. FINDINGS: VENTRICLES: Normal size and contour. CEREBRUM: No masses. No hemorrhage. No midline shift. No evidence for acute infarction. Normal gra y/white matter differentiation. No areas of low density in the white matter. CEREBELLUM: No masses. No hemorrhage. No alteration of density. No evidence for acute infarction. EXTRAAXIAL SPACES: No fluid collections. No masses. ORBITS AND GLOBE: No intra- or extraconal masses. Normal contour of globe without masses. CALVARIUM: No fracture. PARANASAL SINUSES: No fluid or mucosal thickening. SOFT TISSUES: No mass or hematoma. OTHER: No other significant finding. IMPRESSION: NORMAL BRAIN CT WITHOUT CONTRAST. EVIDENCE OF ACUTE STROKE: NO. COMMENT: Quality ID # [id number]: Final reports with documentation of one or more dose reduction techniques (e.g., Automated exposure control, adjustment of the mA and/or kV according to patient size, use of iterative reconstruction technique) TECHNICAL DOCUMENTATION: JOB ID: [id number]- All Rights Reserved
[2017-03-13 19:06] LABS: APPEARANCE,URINE SLIGHTLY-CLOUDY; BILIRUBIN,URINE NEGATIVE (NEGATIVE); GLUCOSE, URINE NEGATIVE (NEGATIVE); KETONES,URINE NEGATIVE (NEGATIVE); LEUKOCYTE ESTERASE,URINE TRACE (NEGATIVE); NITRITE,URINE NEGATIVE (NEGATIVE); PROTEIN,URINE NEGATIVE (NEGATIVE); URINE SPECIFIC GRAVITY 1.003; UROBILINOGEN,URINE NEGATIVE mg/dL (<2.0)
[2017-03-13 19:38] LABS: HEMATOCRIT 33.9 % (36.0-47.0); HEMOGLOBIN 11.3 g/dL (12.0-15.5); MEAN CORPUSCULAR HEMOGLOBIN 30.7 pg (27.0-33.4); MEAN CORPUSCULAR HGB CONC 33.4 g/dL (32.0-36.0); MEAN CORPUSCULAR VOLUME 92 fl (80-97); RED BLOOD COUNT 3.69 10^6/uL (3.72-5.28); RED CELL DISTRIBUTION WIDTH 18.5 % (11.5-14.0); WHITE BLOOD COUNT 4.1 10^3/uL (4.0-10.5)
[2017-03-13 19:49] LABS: ALANINE AMINOTRANSFERASE 47 U/L (9-52); ALBUMIN 3.5 g/dL (3.5-5.0); ALKALINE PHOSPHATASE 113 U/L (38-126); ANION GAP 10 (5-19); ASPARTATE AMINO TRANSFERASE 43 U/L (14-36); BILIRUBIN,DIRECT 0.4 mg/dL (0.0-0.4); BILIRUBIN,TOTAL 0.9 mg/dL (0.2-1.3); BLOOD UREA NITROGEN 7 mg/dL (7-20); CALCIUM 9.3 mg/dL (8.4-10.2); CARBON DIOXIDE 26 mmol/L (22-30); CHLORIDE 104 mmol/L (98-107); GLUCOSE 171 mg/dL (75-110); POTASSIUM 4.9 mmol/L (3.6-5.0); SODIUM 139.8 mmol/L (137-145); TOTAL PROTEIN 5.9 g/dL (6.3-8.2)
[2017-03-13 20:02] LABS: BASOPHILS % (MANUAL) 1 % (0-2); EOSINOPHILS % (MANUAL) 0 % (0-6); LYMPHOCYTES % (MANUAL) 18 % (13-45); TOTAL CELLS COUNTED 100
[2017-03-13 20:04] LABS: TOXIC VACUOLATION PRESENT
[2017-03-13 20:05] LABS: ANISOCYTOSIS 1+; POIKILOCYTOSIS SLIGHT; POLYCHROMASIA SLIGHT; TARGET CELLS SLIGHT; TEAR DROP CELLS SLIGHT
[2017-03-13] MEDS ORDERED: HALOPERIDOL LACTATE INJ 5 MG/1 ML VIAL IV ONE (20:15)
[2017-03-13] MEDS ORDERED: HALOPERIDOL LACTATE INJ 5 MG/1 ML VIAL IM ONE (20:24)
--- NOTE | 2017-03-13 21:33 | RADIOLOGY REPORT (SQ) ---
EXAM DESCRIPTION: MRI HEAD WITHOUT COMPLETED DATE/TIME: 03/13/2017 9:21 pm REASON FOR STUDY: ataxia COMPARISON: None. TECHNIQUE: Multiplanar imaging includes non-contrasted T1, T2, FLAIR, and diffusion with ADC map seq uences. Images stored on PACS. LIMITATIONS: None. FINDINGS: ANATOMY: No anomalies. Normal vascular flow voids. Pituitary fossa normal. CSF SPACES: Normal in size and contour. No hemorrhage. CEREBRUM: Sulci and gyri normal in size and contour. Age-appropriate white matter signal on FLAIR im aging. No evidence of hemorrhage, mass, or extraaxial fluid collection. POSTERIOR FOSSA: No signal alteration. No hemorrhage. No edema, masses or mass effect. Internal sara tory canals, cerebello-pontine angles, mastoids normal. DIFFUSION IMAGING: Negative for acute or sub-acute infarction. ORBITS: No masses. Globes normal. PARANASAL SINUSES: No fluid levels. Mucosa normal. OTHER: No other significant finding. IMPRESSION: Negative for acute or sub-acute infarction. Age-appropriate exam. EVIDENCE OF ACUTE STROKE: NO. TECHNICAL DOCUMENTATION: JOB ID: [id number] [employer]- All Rights Reserved
[2017-03-13 22:09] VITALS: BP 122/78
== END 2017-03-13 22:07 | disposition home or self-care (01) ==
LOC: ER 15:09
DX: R41.82 Altered mental status, unspecified (principal); G89.29 Other chronic pain; Z79.899 Other long term (current) drug therapy
CPT/HCPCS: 99285; 96372; 36415; 85025; 80053; 81001; 70551; 70450; J1630

== ENCOUNTER 2017-03-22 16:42 | Emergency (ER) | payer MEDICARE ==
--- NOTE | 2017-03-22 17:13 | ER Document Report ---
ED Medical Screen (RME) - General Chief Complaint: Fall Injury Stated Complaint: FALL Time Seen by Provider: 03/22/17 17:12 TRAVEL OUTSIDE OF THE [place] IN LAST 30 DAYS: No - HPI Notes: 03/22/17 17:12 Slip and fall in shower right-sided chest wall pain midline neck pain possible loss of consciousness. - Related Data Allergies/Adverse Reactions: Sulfa (Sulfonamide Antibiotics) Allergy (Severe, Verified 08/09/16 18:27) Iodinated Contrast- Oral and IV Dye [IV Dye, Iodine Containing] Allergy ( Intermediate, Verified 08/09/16 18:27) Hives Tetanus Vaccines and Toxoid [Tetanus] Allergy (Verified 08/09/16 18:27) nitrofurantoin macrocrystalline [From Macrobid] Adverse Reaction (Severe, Verified 03/22/17 16:51) Hives, breathing problems Past Medical History - Past Medical History Cardiac Medical History: Denies: Hx Coronary Artery Disease, Hx Heart Attack, Hx Hypertension Pulmonary Medical History: Reports: Hx Asthma, Hx Bronchitis, Hx COPD, Hx Pneumonia Neurological Medical History: Denies: Hx Cerebrovascular Accident, Hx Seizures Renal/ Medical History: Denies: Hx Peritoneal Dialysis Malignancy Medical History: 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 GI Medical History: Reports: Hx Irritable Bowel Musculoskeltal Medical History: Reports Hx Arthritis, Reports Hx Fibromyalgia, Reports Hx Musculoskeletal Trauma Psychiatric Medical History: Reports: Hx Anxiety Past Surgical History: Reports: Hx Abdominal Surgery - colon resection, Hx Appendectomy, Hx Bowel Surgery - colectomy, Hx Breast Surgery - L breast lump; non-cancerous, Hx Cholecystectomy, Hx Hysterectomy, Hx Orthopedic Surgery - L knee--torn meniscus, Hx Tonsillectomy - Immunizations Immunizations up to date: Yes Hx Diphtheria, Pertussis, Tetanus Vaccination: Yes - 2009 allergic to it Review of Systems - Review of Systems Constitutional: Other - Neck pain right sided chest wall pain Physical Exam - Vital signs Vitals: Temp Pulse Resp BP Pulse Ox 98.3 F 115 H 18 119/71 96 03/22/17 16:49 03/22/17 16:49 03/22/17 16:49 03/22/17 16:49 03/22/17 16:49 - HEENT Neck: Other - Midline neck pain c-collar applied Course - Vital Signs Vital signs: Temp Pulse Resp BP Pulse Ox 98.3 F 115 H 18 119/71 96 03/22/17 16:49 03/22/17 16:49 03/22/17 16:49 03/22/17 16:49 03/22/17 16:49
--- NOTE | 2017-03-22 17:53 | RADIOLOGY REPORT (SQ) ---
EXAM DESCRIPTION: CT CERVICAL SPINE WITHOUT COMPLETED DATE/TIME: 03/22/2017 5:39 pm REASON FOR STUDY: fall COMPARISON: None. TECHNIQUE: Axial images acquired through the cervical spine without intravenous contrast. Images re viewed with lung, soft tissue and bone windows. Reconstructed coronal and sagittal MPR images review ed. Images stored on PACS. All CT scanners at this facility use dose modulation, iterative reconstruction, and/or weight based d osing when appropriate to reduce radiation dose to as low as reasonably achievable (ALARA). [facility]: Dose Right [facility]: CareDose [facility]: Dose Right [facility]: Teradose 4D [facility]: Smart [employer] RADIATION DOSE: Up-to-date CT equipment and radiation dose reduction techniques were employed. CTDIv ol: 18.7 mGy. DLP: 352 mGy-cm. mGy. LIMITATIONS: None. FINDINGS: ALIGNMENT: Anatomic. MINERALIZATION: Normal. VERTEBRAL BODIES: No fractures or dislocation. DISCS: Multilevel disc space narrowing with osteophytes. FACETS, LATERAL MASSES, POSTERIOR ELEMENTS: Facet arthropathy. No fractures. No dislocation. No ac [place] findings. HARDWARE: None in the spine. VISUALIZED RIBS: No fractures. LUNG APICES AND SOFT TISSUES: No significant or acute findings. OTHER: No other significant finding. IMPRESSION: CHRONIC DEGENERATIVE CHANGES. NO ACUTE FINDINGS. TECHNICAL DOCUMENTATION: JOB ID: [id number] Quality ID # [id number]: Final reports with documentation of one or more dose reduction techniques (e.g., Au tomated exposure control, adjustment of the mA and/or kV according to patient size, use of iterative reconstruction technique) 2010 [employer]- All Rights Reserved
--- NOTE | 2017-03-22 17:54 | RADIOLOGY REPORT (SQ) ---
EXAM DESCRIPTION: CT HEAD WITHOUT COMPLETED DATE/TIME: 03/22/2017 5:39 pm REASON FOR STUDY: fall COMPARISON: 03/13/2017. TECHNIQUE: Axial images acquired through the brain without intravenous contrast. Images reviewed wi th bone, brain and subdural windows. Images stored on PACS. All CT scanners at this facility use dose modulation, iterative reconstruction, and/or weight based d osing when appropriate to reduce radiation dose to as low as reasonably achievable (ALARA). [facility]: Dose Right [facility]: CareDose [facility]: Dose Right [facility]: Teradose 4D [facility]: Smart [employer] RADIATION DOSE: Up-to-date CT equipment and radiation dose reduction techniques were employed. CTDIv ol: 64.6 mGy. DLP: 1163 mGy-cm. mGy. LIMITATIONS: None. FINDINGS: VENTRICLES: Normal size and contour. CEREBRUM: No masses. No hemorrhage. No midline shift. No evidence for acute infarction. Normal gra y/white matter differentiation. No areas of low density in the white matter. CEREBELLUM: No masses. No hemorrhage. No alteration of density. No evidence for acute infarction. EXTRAAXIAL SPACES: No fluid collections. No masses. ORBITS AND GLOBE: No intra- or extraconal masses. Normal contour of globe without masses. CALVARIUM: No fracture. PARANASAL SINUSES: No fluid or mucosal thickening. SOFT TISSUES: No mass or hematoma. OTHER: No other significant finding. IMPRESSION: NORMAL BRAIN CT WITHOUT CONTRAST. EVIDENCE OF ACUTE STROKE: NO. COMMENT: Quality ID # [id number]: Final reports with documentation of one or more dose reduction techniques (e.g., Automated exposure control, adjustment of the mA and/or kV according to patient size, use of iterative reconstruction technique) TECHNICAL DOCUMENTATION: JOB ID: [id number] [email or web address]- All Rights Reserved
--- NOTE | 2017-03-22 17:55 | RADIOLOGY REPORT (SQ) ---
EXAM DESCRIPTION: CHEST PA/LAT COMPLETED DATE/TIME: 03/22/2017 5:42 pm REASON FOR STUDY: fall COMPARISON: 07/22/2016. EXAM PARAMETERS: NUMBER OF VIEWS: two views TECHNIQUE: Digital Frontal and Lateral radiographic views of the chest acquired. RADIATION DOSE: NA LIMITATIONS: none FINDINGS: LUNGS AND PLEURA: No opacities, masses or pneumothorax. No pleural effusion. MEDIASTINUM AND HILAR STRUCTURES: No masses or contour abnormalities. HEART AND VASCULAR STRUCTURES: Heart normal size. No evidence for failure. BONES: No acute findings. HARDWARE: Clips in the upper abdomen. OTHER: No other significant finding. IMPRESSION: NO SIGNIFICANT RADIOGRAPHIC FINDING IN THE CHEST. TECHNICAL DOCUMENTATION: JOB ID: [id number] [employer]- All Rights Reserved
--- NOTE | 2017-03-22 18:38 | ER Document Report ---
ED Fall - General Chief Complaint: Fall Injury Stated Complaint: FALL Time Seen by Provider: 03/22/17 17:12 Notes: Patient fell out of her shower Sunday injuring her right posterior ribs and back. She was in the shower getting ready to go see her urologist in [facility], Dr. Piña. He advised her that she needs to be evaluated for injuries from that fall. Dr. Piña sees this patient for recurrent persistent UTIs. Patient's most painful area is in the right mid posterior thoracic region where it is tender to touch or push. Coincidentally, patient has some erythema in that area from where she has had previous episodes of shingles leaving her with some residual erythema. Patient has been treated in the past and is in remission for AML. 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 TRAVEL OUTSIDE OF THE [place] IN LAST 30 DAYS: No - Related data Allergies/Adverse Reactions: Sulfa (Sulfonamide Antibiotics) Allergy (Severe, Verified 08/09/16 18:27) Iodinated Contrast- Oral and IV Dye [IV Dye, Iodine Containing] Allergy ( Intermediate, Verified 08/09/16 18:27) Hives Tetanus Vaccines and Toxoid [Tetanus] Allergy (Verified 08/09/16 18:27) nitrofurantoin macrocrystalline [From Macrobid] Adverse Reaction (Severe, Verified 03/22/17 16:51) Hives, breathing problems Past Medical History - Social History Smoking Status: Unknown if Ever Smoked Cigarette use (# per day): No Chew tobacco use (# tins/day): No Frequency of alcohol use: None Drug Abuse: None Family History: Arthritis, CAD, CVA, DM, Hyperlipidemia, Hypertension, Malignancy - Past Medical History Cardiac Medical History: Denies: Hx Coronary Artery Disease Pulmonary Medical History: Reports: Hx Asthma, Hx Bronchitis, Hx COPD, Hx Pneumonia Neurological Medical History: Denies: Hx Cerebrovascular Accident, Hx Seizures Malignancy Medical History: 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 GI Medical History: Reports: Hx Irritable Bowel Musculoskeltal Medical History: Reports Hx Arthritis, Reports Hx Fibromyalgia, Reports Hx Musculoskeletal Trauma Psychiatric Medical History: Reports: Hx Anxiety Past Surgical History: Reports: Hx Abdominal Surgery - colon resection, Hx Appendectomy, Hx Bowel Surgery - colectomy, Hx Breast Surgery - L breast lump; non-cancerous, Hx Cholecystectomy, Hx Hysterectomy, Hx Orthopedic Surgery - L knee--torn meniscus, Hx Tonsillectomy - Immunizations Immunizations up to date: Yes Hx Diphtheria, Pertussis, Tetanus Vaccination: Yes - 2009 allergic to it Review of Systems - Review of Systems Notes: REVIEW OF SYSTEMS: CONSTITUTIONAL : Denies fever. EENT: Denies eye, ear, nose or mouth or throat pain or other symptoms. CARDIOVASCULAR: See HPI. RESPIRATORY: Denies cough, chest congestion, or shortness of breath. GASTROINTESTINAL: Denies abdominal pain or nausea, vomiting, or diarrhea. GENITOURINARY: Denies difficulty or painful urinating, urinary frequency, blood in urine. MUSCULOSKELETAL: Denies back or neck pain. Denies joint pain or swelling. SKIN: Patient has multiple bruises of various ages on all of her extremities.. No infectious appearing lesions. NEUROLOGICAL: Denies LOC or altered mental status. Denies headache. Denies sensory loss or motor deficits. ALL OTHER SYSTEMS REVIEWED AND NEGATIVE. Physical Exam - Vital signs Vitals: Temp Pulse Resp BP Pulse Ox 98.3 F 115 H 18 119/71 96 03/22/17 16:49 03/22/17 16:49 03/22/17 16:49 03/22/17 16:49 03/22/17 16:49 Interpretation: Tachycardic - Very minimal - Notes Notes: PHYSICAL EXAMINATION: GENERAL: Well-appearing, in no acute distress. Cervical collar in place, but removed since patient already has been to CT scan and its normal. She has no posterior midline tenderness in the back of the neck. HEAD: Atraumatic, normocephalic. No hematomas or tender areas. EYES: Pupils equal round and reactive to light, extraocular movements intact. ENT: oropharynx clear without exudates. Moist mucous membranes. NECK: Normal range of motion, supple. No posterior midline tenderness. LUNGS: Breath sounds clear and equal bilaterally. No rib tenderness. HEART: Regular rate and rhythm without murmurs. ABDOMEN: Soft, nontender. No guarding or rebound. BACK: Tender in the mid posterior thoracic region, slightly to the right of midline. No subcutaneous air and no crepitus felt. No tenderness throughout entire remainder of the back. EXTREMITIES: Normal range of motion without pain. NEUROLOGICAL: Normal speech, normal gait, but slightly unsteady on her feet.. Normal sensory, motor, and reflex exams. Awake, alert, and oriented x3. Cranial nerves normal. PSYCH: Normal mood, normal affect. SKIN: Warm, dry, no rashes. Numerous small and large bruises of all 4 extremities, of varying ages in appearance. Course - Re-evaluation Re-evalutation: 03/23/17 00:27 Patient and daughter reassured that patient's studies were normal and she is safe to be discharged. They say that she needs pain medications. Patient has been under the care of physicians at [facility] and has required high doses of pain medications in the past. They say that she normally takes 2 Dilaudid 2 mg at a time up to 4 times a day for pain. I have advised that I will give her a 3 day supply, since her injury occurred 2 days ago. 5 days after the injury, patient should not require Dilaudid at all so I am providing her with 24 pills so she can have enough to take to 4 times a day for 3 days. - Vital Signs Vital signs: Temp Pulse Resp BP Pulse Ox 97.5 F 51 L 16 113/63 95 03/22/17 18:57 03/22/17 18:57 03/22/17 18:57 03/22/17 18:57 03/22/17 18:57 - Diagnostic Test Radiology reviewed: Image reviewed, Reports reviewed - CT scan of the head and C -spine are normal. X-ray of the chest is normal. Discharge - Discharge Clinical Impression: Fall, Multiple contusions Condition: Stable Disposition: HOME, SELF-CARE Additional Instructions: HEAD INJURY PRECAUTIONS: At this point, there is no evidence that your head injury is serious. Observation is necessary, however. Take only clear liquids for the first few hours, unless told otherwise by the doctor. If no pain medication was prescribed, you may take acetaminophen according to the directions on the bottle. Do not take any medication that may alter your level of alertness (unless you've discussed it with the doctor first) . Limit activity for the first 24 hours. Bed rest is best. During the first 24 hours, check to see approximately every two to three hours that the patient is easily arousable, responds normally, and can perform common tasks such as walking without difficulty. Contact your doctor or go to the hospital if any of the following things occur: Persistent vomiting, difficulty in arousing the patient, worsening or continued headache, or failure to improve as expected. Head injuries can cause symptoms that persist for a few days or even a few weeks. NECK INJURY (CERVICAL STRAIN): You have a neck strain. This is an injury to the muscles and ligaments in the neck. There is no evidence of a fracture of the neck bones. Also, no injury to the spinal cord or nerve roots was detected. Usually, stiffness and pain INCREASE for the first 24-48 hours after the injury. The pain will gradually resolve and the neck will become more mobile. Most patients are back at work or school within a few days. Typically, complete healing takes about two or three weeks. The usual initial treatment is rest and cold packs. A neck collar may be placed to keep the muscles of the neck at rest. Antiinflammatory and muscle relaxing medication are often used to reduce the spasm and irritation. You should call the doctor, or go to the hospital, if you develop numbness or weakness in any extremity, problems with your bladder or bowel, or pain radiating down the arms. MUSCLE STRAIN: You have strained a muscle -- torn the fibers within the muscle. This often occurs with strenuous exertion, or during an injury that suddenly stretches the muscle. The seriousness of a strain varies. Some strains heal within days, others cause problems for months. X-rays cannot show a muscle strain. X-rays are taken only if symptoms suggest that a fracture could be present. The usual treatment of a muscle strain is rest and ice packs. Sometimes, a sling, splint, or crutches may be necessary to rest the muscle. The muscle can be used again once pain subsides. Severe strains require a special exercise and stretching program to prevent permanent stiffness and disability. Your doctor will advise you if this will be necessary. Call the doctor immediately if pain or swelling becomes severe, or if numbness or discoloration develop. CONTUSION: Your injury has resulted in a contusion -- a crushing of the deep tissues. No injury to important structures was detected during the physician's exam. Contusions vary in the amount of pain they cause, and in the length of time required for healing. Typically, the area will become bruised, and will remain painful to touch for two or three weeks. However, most patients are back to working and playing within a few days. After the initial period of rest and cold-packs, your symptoms (together with the doctor's recommendations) will determine how rapidly you can get back to full activity. Usually this means "do what feels okay, but don't do things that hurt." If re-examination was recommended, it's important to follow up as instructed. Call the doctor or return any time if pain increases, if swelling becomes severe, if you develop numbness or weakness in an injured extremity, or if any other alarming symptoms occur. ABRASIONS: An abrasion is a scraping injury of the skin. Some scarring may result. The seriousness of an abrasion is not always obvious at first. Hidden tissue damage may be present and infection may occur despite proper care. Complete healing may take from ten days to as long as a month. The healing time depends on the depth of the abrasion, and on the amount of crushing of underlying tissues from the injury. Keep the wound and dressing clean. Do not shower or bathe the area until okayed by the doctor. If the dressing gets wet, remove it and blot the wound dry, then reapply a clean dressing. Dressings should be changed every day. Sunscreen should be used for six months after the skin is healed. If any signs of infection occur (swelling, redness, increasing tenderness, red streaks, profuse purulent drainage from the abrasion, tender lumps in the armpit or groin above the abrasion, or fever), see the doctor immediately. BACK PAIN: Three out of every four people will have an episode of disabling back pain during their lifetime. Most commonly the pain is due to straining of the muscles and ligaments in the low back. Usual treatment includes: (1) Rest on a firm surface. Avoid lying on your stomach. (2) Ice pack the painful area. After a few days, gentle heat may be used intermittently to relax the area, or ice packs can be continued. (3) Medication may be needed -- muscle relaxers and antiinflammatory medicines are commonly used. (4) As the back improves, exercises are prescribed to strengthen the back and abdominal muscles. Your doctor will advise you on the proper care for your back at each stage in your recovery. You may be better in a few days -- or healing may take several weeks. If new symptoms of a "herniated disc" (radiation of pain, numbness, or tingling down the back of the leg or weakness in the leg) occur, you should be re-examined. Further testing may be necessary. ICE PACKS: Apply ice packs frequently against the painful area. Many different schedules are recommended, such as "20 minutes on, 20 minutes off" or "one hour ice, two hours rest." If you need to work, you may need to go longer between ice treatments. You should plan to have the area ice packed AT LEAST one fourth of the time. The ice should be applied over the wrap, tape, or splint, or over a layer of cloth -- not directly against the skin. Some ice bags have a built-in cloth and can be put directly on the skin. WARM PACKS: After approximately two days, apply gentle heat (such as a heating pad or hot water bottle) for about 20 to 30 minutes about every two hours -- at least four times daily. Warmth and elevation will help you make a more rapid recovery , and will ease the pain considerably. Do not use HOT heat, and never apply heat for longer than 30 minutes. The continuous heat can invisibly damage skin and muscles -- even when no burn is seen on the surface. Damaged muscles can make you MORE sore. ORAL NARCOTIC MEDICATION: You have been given a prescription for pain control. This medication is a narcotic. It's best taken with food, as nausea can result if taken on an empty stomach. Don't operate machinery or drive within six hours of taking this medication. Do not combine this medicine with alcohol, or with any medication which can cause sedation (such as cold tablets or sleeping pills) unless you get permission from the physician. Narcotics tend to cause constipation. If possible, drink plenty of fluids and eat a diet high in fiber and fruits. FOLLOW-UP CARE: If you have been referred to a physician for follow-up care, call the physician s office for an appointment as you were instructed or within the next two days. If you experience worsening or a significant change in your symptoms, notify the physician immediately or return to the Emergency Department at any time for re-evaluation. Prescriptions: Hydromorphone HCl [Dilaudid 2 mg Tablet] 2 mg PO QIDP PRN #24 tablet PRN Reason:
[2017-03-22 18:58] VITALS: BP 113/63
== END 2017-03-22 18:58 | disposition home or self-care (01) ==
LOC: ER 16:42
DX: S40.022A Contusion of left upper arm, initial encounter (principal); S40.021A Contusion of right upper arm, initial encounter; S80.12XA Contusion of left lower leg, initial encounter; S80.11XA Contusion of right lower leg, initial encounter; W18.2XXA Fall in (into) shower or empty bathtub, initial encounter; S29.9XXA Unspecified injury of thorax, initial encounter; M54.2 Cervicalgia; Y93.E1 Activity, personal bathing and showering; Z88.2 Allergy status to sulfonamides; Z88.7 Allergy status to serum and vaccine; Z90.49 Acquired absence of other specified parts of digestive tract; Z90.710 Acquired absence of both cervix and uterus
CPT/HCPCS: 99284; 71020; 70450; 72125; L0120

== ENCOUNTER 2017-06-08 15:09 | Emergency (ER) | payer MEDICARE ==
--- NOTE | 2017-06-08 18:31 | ER Document Report ---
ED Fall - General Chief Complaint: Fall Stated Complaint: FALL;WRIST INJURY Time Seen by Provider: 06/08/17 18:11 Mode of Arrival: Ambulatory Information source: Patient Notes: 36-year-old female presents to ED for complaint of pain to her left forearm wrist and hand. She states she fell on Sunday and her left hand wrist and forearm are still extremely painful. She also has bruising to the left side of her face but she refused to have a CT of the face. She states that is healing and doing fine she does not need that she just wants to find it was wrong with the hand and wrist and arm. She has a history of asthma bronchitis pneumonia AML stomach problems. TRAVEL OUTSIDE OF THE [place] IN LAST 30 DAYS: No - HPI Occurred: Other - Sunday Where: Outdoors Context: Tripped Associated symptoms: None Location of injury/pain: Face, Hand, Wrist, Other - Forearm Quality of pain: Achy, Throbbing Severity: Moderate Pain Level: 4 - Related data Allergies/Adverse Reactions: Sulfa (Sulfonamide Antibiotics) Allergy (Severe, Verified 06/08/17 15:15) Iodinated Contrast- Oral and IV Dye [IV Dye, Iodine Containing] Allergy ( Intermediate, Verified 06/08/17 15:15) Hives tetanus toxoid, adsorbed Allergy (Verified 06/08/17 15:15) Tetanus Vaccines and Toxoid [Tetanus] Allergy (Verified 06/08/17 15:15) nitrofurantoin macrocrystalline [From Macrobid] Adverse Reaction (Severe, Verified 06/08/17 15:15) Hives, breathing problems Past Medical History - General Information source: Patient - Social History Smoking Status: Former Smoker Cigarette use (# per day): No Chew tobacco use (# tins/day): No Smoking Education Provided: No Frequency of alcohol use: None Drug Abuse: None Lives with: Family Family History: Arthritis, CAD, COPD, CVA, DM, Hyperlipidemia, Hypertension, Malignancy. denies: Thyroid Disfunction Patient has suicidal ideation: No Patient has homicidal ideation: No - Past Medical History Cardiac Medical History: Reports: None Pulmonary Medical History: Reports: Hx Asthma, Hx Bronchitis, Hx Pneumonia EENT Medical History: Reports: None Neurological Medical History: Reports: Hx Cerebrovascular Accident Endocrine Medical History: Reports: None Renal/ Medical History: Reports: None Malignancy Medical History: 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 GI Medical History: Reports: Hx Gastroesophageal Reflux Disease, Hx Irritable Bowel, Hx Endoscopy Musculoskeltal Medical History: Reports Hx Arthritis, Reports Hx Fibromyalgia, Reports Hx Musculoskeletal Trauma Skin Medical History: Reports None Psychiatric Medical History: Reports: Hx Anxiety Traumatic Medical History: Reports: None Infectious Medical History: Reports: None Past Surgical History: Reports: Hx Abdominal Surgery - colon resection, Hx Appendectomy, Hx Bowel Surgery - colectomy, Hx Breast Surgery - L breast lump; non-cancerous, Hx Cholecystectomy, Hx Hysterectomy, Hx Orthopedic Surgery - L knee--torn meniscus, Hx Tonsillectomy - Immunizations Immunizations up to date: Yes Hx Diphtheria, Pertussis, Tetanus Vaccination: Yes - 2009 allergic to it Review of Systems - Review of Systems Constitutional: No symptoms reported EENT: Other - Bruising and abrasions to the left side of her face refuses to have a CAT scan Cardiovascular: No symptoms reported Respiratory: No symptoms reported Gastrointestinal: No symptoms reported Genitourinary: No symptoms reported Female Genitourinary: No symptoms reported Musculoskeletal: Other - Bruises pain and swelling to the left wrist hand and forearm Skin: Other - Ecchymotic layers to the left side of the face left hand wrist and forearm Hematologic/Lymphatic: No symptoms reported Neurological/Psychological: No symptoms reported -: Yes All other systems reviewed and negative Physical Exam - Vital signs Vitals: Temp Pulse Resp BP Pulse Ox 98.4 F 98 18 122/76 100 06/08/17 15:25 06/08/17 15:25 06/08/17 15:25 06/08/17 15:25 06/08/17 15:25 Interpretation: Normal - General General appearance: Appears well, Alert - HEENT Head: Abrasions - Left side of the face, Ecchymosis, Tenderness Eyes: Normal Pupils: PERRL Ears: Normal External canal: Normal Tympanic membrane: Normal Nasal: Normal Mouth/Lips: Normal Pharynx: Normal Neck: Normal - Respiratory Respiratory status: No respiratory distress Chest status: Nontender Breath sounds: Normal Chest palpation: Normal - Cardiovascular Rhythm: Regular Heart sounds: Normal auscultation Murmur: No - Abdominal Inspection: Normal Distension: No distension Bowel sounds: Normal Tenderness: Nontender Organomegaly: No organomegaly - Back Back: Normal, Nontender - Extremities General upper extremity: Normal temperature General lower extremity: Normal inspection, Nontender, Normal color, Normal ROM , Normal temperature, Normal weight bearing. No: Kim's sign Shoulder: Normal, Nontender Arm: Normal, Nontender Elbow: Ecchymosis. No: Limited ROM Forearm: Tender, Ecchymosis. No: Abrasion, Deformity, Instability, Laceration Wrist: Tender, Ecchymosis, Limited ROM. No: Abrasion, Axial load of thumb pain , Deformity, Dislocation, Instability, Laceration, Navicular tenderness Hand: Tender, Ecchymosis, No evidence of human bite, No evidence of FB, Swelling. No: Abrasion, Deformity, Dislocation, Instability, Laceration, Nail injury, Tendon deficit - Neurological Neuro grossly intact: Yes Cognition: Normal Orientation: AAOx4 [place] Coma Scale Eye Opening: Spontaneous [place] Coma Scale Verbal: Oriented [place] Coma Scale Motor: Obeys Commands [place] Coma Scale Total: 15 Speech: Normal Motor strength normal: LUE, RUE, LLE, RLE Sensory: Normal - Psychological Associated symptoms: Normal affect, Normal mood - Skin Skin Temperature: Warm Skin Moisture: Dry Skin Color: Normal Course - Re-evaluation Re-evalutation: 06/08/17 19:14 X-ray discussed with patient and family. Written reports of x-ray and CD of x- rays given to patient to follow-up with her orthopedic doctor as she states she goes to [facility], [place]. Patient states she takes 8 mg of Dilaudid as chronic pain management. She states she is in severe pain now 4 mg were given to her in the emergency room and she is going take the other for when she gets home. A thumb spica splint was applied to the left arm and a sling provided. Patient was instructed on elevation ice and to please follow-up with orthopedic on Sunday. - Vital Signs Vital signs: Temp Pulse Resp BP Pulse Ox 98.4 F 91 18 120/82 96 06/08/17 15:26 06/08/17 19:10 06/08/17 15:25 06/08/17 19:23 06/08/17 19:10 - Diagnostic Test Radiology reviewed: Image reviewed, Reports reviewed Procedures - Immobilization Left Hand Time completed: 19:14 Immobilizer type: Thumb spica, Sling Performed by: PCT Post-Proc Neuro Vasc Exam: Normal Alignment checked and good: Yes Discharge - Discharge Clinical Impression: avulsion fracture base of 1st metacarpal lt Condition: Stable Disposition: HOME, SELF-CARE Additional Instructions: Avulsion Fracture You have an avulsion fracture, sometimes also called a flake or chip fracture. This type of fracture is caused by a sudden stress on a ligament or tendon. As the ligament pulls on the bone, the bone gives way, and a chip of bone cracks off. Small avulsion fractures are not usually serious. More often, the ligament injury which caused the bone chip is of greater concern. The treatment is usually the same as for a ligament or tendon injury -- that is, rest, ice, and elevation -- with careful resumption of use once the pain and swelling have resolved. For some avulsion fractures, a cast or special splint is necessary. Large avulsion fractures may even require an operation. Often the treatment plan will change depending on how well your injury progresses. Healing usually takes between three and six weeks. Future X-rays will most likely still show this bone chip, as it does not "fuse." Call the doctor or return at once if swelling and pain become severe, or if numbness develops. SPLINT PRECAUTIONS: A splint has been placed. This will protect the area while healing begins. Your problem does NOT normally require a cast. It MUST, however, be held still! Keep the splint on ALL THE TIME until instructed to remove it by the doctor. As you begin to use the area, be careful. You shouldn't do anything which causes discomfort -- you may disturb the injury even with the splint in place. After the initial period of rest and elevation, if splint does not prevent pain when you move, come back. You may require placement of a different splint , or a cast. If there is unexpected severe pain, or numbness, discoloration, or swelling beyond the splint, you should return at once. If you feel that the splint has broken or become loose, come back. ICE & ELEVATION: Apply ice packs frequently against the painful area. Many different schedules are recommended, such as "20 minutes on, 20 minutes off" or "one hour ice, two hours rest." If you need to work, you may need to go longer between ice treatments. You should plan to have the area ice packed AT LEAST one- fourth of the time. The ice should be applied over the wrap, tape, or splint, or over a layer of cloth -- not directly against the skin. Some ice bags have a built-in cloth and can be put directly on the skin. Your injured part should be elevated as much as possible over the next 48 hours. Try to keep the injury above the level of the heart. Avoid use of the injured area. Elevation and rest will decrease the swelling. ORAL NARCOTIC MEDICATION: You have been given 4 mg Dilaudid for pain control as this is what you take for chronic pain. This medication is a narcotic. It's best taken with food, as nausea can result if taken on an empty stomach. Don't operate machinery or drive within six hours of taking this medication. Do not combine this medicine with alcohol, or with any medication which can cause sedation (such as cold tablets or sleeping pills) unless you get permission from the physician. Narcotics tend to cause constipation. If possible, drink plenty of fluids and eat a diet high in fiber and fruits. Please be aware that prescription narcotics also have the potential for abuse. People become addicted to these medications because of the general sense of wellbeing that they induce. This feeling along with a significant reduction in tension, anxiety, and aggression provides a stimulating seductive quality to these drugs. Once your pain is under control, we encourage you to discard your unused narcotics. Sling to be Used You are to use a sling. This is to rest the area, and to prevent it from hanging downward. Use this sling for at least 48 hours (or longer if so instructed by the doctor). Some types of splints will break if not supported by the sling, so the sling must be used as long as the splint. Ice can be placed inside the sling over the injured area. Once you remove the sling, you should not encounter pain when you use the arm and hand. If you do feel pain beneath the cast or splint, you must continue use of the sling. FOLLOW-UP CARE: If you have been referred to a physician for follow-up care, call the physician s office for an appointment as you were instructed or within the next two days. If you experience worsening or a significant change in your symptoms, notify the physician immediately or return to the Emergency Department at any time for re-evaluation. These follow-up with your orthopedic as you states you go to [facility]. A CD of your x-ray was sent home with you to take to the orthopedic doctor. Your x-rays were discussed with you and a written report given to you. Referrals: ZACH PRUITT MD [Primary Care Provider] - Follow up as needed
--- NOTE | 2017-06-08 18:45 | RADIOLOGY REPORT (SQ) ---
EXAM DESCRIPTION: FOREARM LEFT COMPLETED DATE/TIME: 06/08/2017 6:38 pm REASON FOR STUDY: fall on sunday with continued pain COMPARISON: None. NUMBER OF VIEWS: Two views. TECHNIQUE: Two radiographic images acquired of the left forearm, including elbow and wrist in at [address] one projection. LIMITATIONS: None. FINDINGS: MINERALIZATION: Normal. BONES: No acute fracture. No worrisome bone lesions. SOFT TISSUES: No obvious swelling or foreign body. OTHER: No other significant finding. IMPRESSION: NEGATIVE STUDY OF THE LEFT FOREARM. NO RADIOGRAPHIC EVIDENCE OF ACUTE INJURY. TECHNICAL DOCUMENTATION: JOB ID: [id number] [employer]- All Rights Reserved
--- NOTE | 2017-06-08 18:47 | RADIOLOGY REPORT (SQ) ---
EXAM DESCRIPTION: HAND LEFT 3 VIEWS COMPLETED DATE/TIME: 06/08/2017 6:38 pm REASON FOR STUDY: fall on sunday with continued pain COMPARISON: None. EXAM PARAMETERS: NUMBER OF VIEWS: Three views. TECHNIQUE: AP, lateral and oblique radiographic images acquired of the left hand. LIMITATIONS: None. FINDINGS: MINERALIZATION: Normal. BONES: Thin linear osseous density adjacent to the base of the 1st metacarpal. Remainder of the bony structures are intact JOINTS: No effusions. SOFT TISSUES: No soft tissue swelling. No foreign body. OTHER: No other significant finding. IMPRESSION: SUSPECTED TINY AVULSION INJURY AT THE BASE OF THE 1ST METACARPAL. TECHNICAL DOCUMENTATION: JOB ID: [id number] [employer]- All Rights Reserved
[2017-06-08] MEDS ORDERED: HYDROMORPHONE HCL 2 MG TABLET PO ONE (19:05)
[2017-06-08 19:23] VITALS: BP 120/82
== END 2017-06-08 19:23 | disposition home or self-care (01) ==
LOC: ER 15:09
PROC: 2W3DX1Z Immobilization of Left Lower Arm using Splint (ICD-10-PCS; principal; 2017-06-08)
DX: S62.232A Other displaced fracture of base of first metacarpal bone, left hand, initial encounter for closed fracture (principal); W01.0XXA Fall on same level from slipping, tripping and stumbling without subsequent striking against object, initial encounter; Z88.2 Allergy status to sulfonamides; Z88.7 Allergy status to serum and vaccine; Z87.891 Personal history of nicotine dependence; Z86.73 Personal history of transient ischemic attack (TIA), and cerebral infarction without residual deficits; Z90.49 Acquired absence of other specified parts of digestive tract; Z90.710 Acquired absence of both cervix and uterus
CPT/HCPCS: 99283; 73090; 73130; 29125; A9270

== ENCOUNTER → 2017-10-10 | Outpatient (CLI) | payer MEDICARE | LOC: RAD 07:33 | PROVIDERS: ATTEND Internal Medicine Gastroenterology | DX: R11.0 Nausea (principal); Z53.8 Procedure and treatment not carried out for other reasons ==

== ENCOUNTER 2018-01-01 15:15 | Emergency (ER) | payer MEDICARE ==
[2018-01-01 15:25] VITALS: BP 128/75
--- NOTE | 2018-01-01 15:58 | ER Document Report ---
ED Medical Screen (RME) - General Chief Complaint: Abscess Stated Complaint: POSSIBLE ABSCESS Time Seen by Provider: 01/01/18 15:56 Mode of Arrival: Ambulatory Information source: Patient Notes: This is a 77-year-old female who presents to the emergency room with a painful, draining abscess to the labia. Patient states this is been going on for 2 months. Her primary care physician (Chela) referred the patient to a urologist who then referred the patient appropriately to the ice cream dipper. They were not able to get an appointment till January 09 and the patient states she cannot wait that long because of the pain. She denies fever. TRAVEL OUTSIDE OF THE [place] IN LAST 30 DAYS: No - Related Data Allergies/Adverse Reactions: Sulfa (Sulfonamide Antibiotics) Allergy (Severe, Verified 01/01/18 15:54) Iodinated Contrast- Oral and IV Dye [IV Dye, Iodine Containing] Allergy ( Intermediate, Verified 01/01/18 15:54) Hives tetanus toxoid, adsorbed Allergy (Verified 01/01/18 15:54) Tetanus Vaccines and Toxoid [Tetanus] Allergy (Verified 01/01/18 15:54) nitrofurantoin macrocrystalline [From Macrobid] Adverse Reaction (Severe, Verified 01/01/18 15:54) Hives, breathing problems Past Medical History - Social History Chew tobacco use (# tins/day): No Frequency of alcohol use: None Drug Abuse: None Pulmonary Medical History: Reports: Hx Asthma, Hx Bronchitis, Hx Pneumonia Neurological Medical History: Reports: Hx Cerebrovascular Accident Renal/ Medical History: Denies: Hx Peritoneal Dialysis Malignancy Medical History: 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 GI Medical History: Reports: Hx Gastroesophageal Reflux Disease, Hx Irritable Bowel, Hx Endoscopy Musculoskeltal Medical History: Reports Hx Arthritis, Reports Hx Fibromyalgia, Reports Hx Musculoskeletal Trauma Psychiatric Medical History: Reports: Hx Anxiety Past Surgical History: Reports: Hx Abdominal Surgery - colon resection, Hx Appendectomy, Hx Bowel Surgery - colectomy, Hx Breast Surgery - L breast lump; non-cancerous, Hx Cholecystectomy, Hx Hysterectomy, Hx Orthopedic Surgery - L knee--torn meniscus, Hx Tonsillectomy - Immunizations Immunizations up to date: Yes Hx Diphtheria, Pertussis, Tetanus Vaccination: Yes - 2009 allergic to it Physical Exam - Vital signs Vitals: Temp Pulse Resp BP Pulse Ox 98.1 F 57 L 14 128/75 H 94 01/01/18 15:21 01/01/18 15:21 01/01/18 15:21 01/01/18 15:21 01/01/18 15:21 Course - Vital Signs Vital signs: Temp Pulse Resp BP Pulse Ox 98.1 F 57 L 14 128/75 H 94 01/01/18 15:21 01/01/18 15:21 01/01/18 15:21 01/01/18 15:21 01/01/18 15:21 Doctor's Discharge - Discharge Referrals: ALDEN WILLOUGHBY MD [Primary Care Provider] - Follow up as needed
--- NOTE | 2018-01-01 16:07 | ER Document Report ---
ED Skin Rash/Insect Bite/Abscs - General Chief Complaint: Abscess Stated Complaint: POSSIBLE ABSCESS Time Seen by Provider: 01/01/18 15:56 Mode of Arrival: Ambulatory TRAVEL OUTSIDE OF THE [place] IN LAST 30 DAYS: No - HPI Patient complains to provider of: Skin rash/lesion Onset: Last week Onset/Duration: Gradual Quality of pain: Achy Severity: Mild Pain Level: 2 Skin Character: Abscess, Swelling Skin Temperature: Warm Quality of rash: Painful Identify cause: No Exacerbated by: Denies Relieved by: Denies Similar symptoms previously: No Recently seen / treated by doctor: No - Related Data Allergies/Adverse Reactions: Sulfa (Sulfonamide Antibiotics) Allergy (Severe, Verified 01/01/18 15:54) Iodinated Contrast- Oral and IV Dye [IV Dye, Iodine Containing] Allergy ( Intermediate, Verified 01/01/18 15:54) Hives tetanus toxoid, adsorbed Allergy (Verified 01/01/18 15:54) Tetanus Vaccines and Toxoid [Tetanus] Allergy (Verified 01/01/18 15:54) nitrofurantoin macrocrystalline [From Macrobid] Adverse Reaction (Severe, Verified 01/01/18 15:54) Hives, breathing problems Past Medical History - General Information source: Patient - Social History Smoking Status: Never Smoker Chew tobacco use (# tins/day): No Frequency of alcohol use: None Drug Abuse: None Family History: Arthritis, CAD, COPD, CVA, DM, Hyperlipidemia, Hypertension, Malignancy. 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 GI Medical History: Reports: Hx Gastroesophageal Reflux Disease, Hx Irritable Bowel, Hx Endoscopy Musculoskeletal Medical History: Reports Hx Arthritis, Reports Hx Fibromyalgia, Reports Hx Musculoskeletal Trauma Psychiatric Medical History: Reports: Hx Anxiety Past Surgical History: Reports: Hx Abdominal Surgery - colon resection, Hx Appendectomy, Hx Bowel Surgery - colectomy, Hx Breast Surgery - L breast lump; non-cancerous, Hx Cholecystectomy, Hx Hysterectomy, Hx Orthopedic Surgery - L knee--torn meniscus, Hx Tonsillectomy - Immunizations Immunizations up to date: Yes Hx Diphtheria, Pertussis, Tetanus Vaccination: Yes - 2009 allergic to it Review of Systems - Review of Systems Constitutional: denies: Chills, Fever EENT: denies: Eye pain Cardiovascular: denies: Chest pain, Palpitations Respiratory: No symptoms reported Gastrointestinal: No symptoms reported Genitourinary: Pain Female Genitourinary: No symptoms reported Musculoskeletal: No symptoms reported Skin: Lesions Hematologic/Lymphatic: No symptoms reported Neurological/Psychological: No symptoms reported -: Yes All other systems reviewed and negative Physical Exam - Vital signs Vitals: Temp Pulse Resp BP Pulse Ox 98.1 F 57 L 14 128/75 H 94 01/01/18 15:21 01/01/18 15:21 01/01/18 15:21 01/01/18 15:21 01/01/18 15:21 - General General appearance: Appears well, Alert In distress: None - HEENT Head: Normocephalic, Atraumatic Eyes: Normal Pupils: PERRL - Respiratory Respiratory status: No respiratory distress Chest status: Nontender Breath sounds: Normal Chest palpation: Normal - Cardiovascular Rhythm: Regular Heart sounds: Normal auscultation Murmur: No - Abdominal Inspection: Normal Distension: No distension Bowel sounds: Normal Tenderness: Nontender Organomegaly: No organomegaly - Genitourinary External exam: Other - Right labial abscess. Layla was Ms. Rosi RN. - Back Back: Normal, Nontender - Extremities General upper extremity: Normal inspection, Nontender, Normal color, Normal ROM , Normal temperature General lower extremity: Normal inspection, Nontender, Normal color, Normal ROM , Normal temperature, Normal weight bearing. No: Kim's sign - Neurological Neuro grossly intact: Yes Cognition: Normal Orientation: AAOx4 [place] Coma Scale Eye Opening: Spontaneous [place] Coma Scale Verbal: Oriented [place] Coma Scale Motor: Obeys Commands [place] Coma Scale Total: 15 Speech: Normal Motor strength normal: LUE, RUE, LLE, RLE Sensory: Normal - Psychological Associated symptoms: Normal affect, Normal mood - Skin Skin Temperature: Warm Skin Moisture: Dry Skin Color: Erythema Skin irregularity: Abscess Location of irregularity: Other - Right Labia. Course - Vital Signs Vital signs: Temp Pulse Resp BP Pulse Ox 98.1 F 57 L 14 128/75 H 94 01/01/18 15:21 01/01/18 15:21 01/01/18 15:21 01/01/18 15:21 01/01/18 15:21 - Laboratory Result Diagrams: 01/01/18 16:24 01/01/18 16:24 Procedures - Incision and Drainage Right Labia Time completed: 16:35 Type: Simple Anesthetic type: 1% Lidocaine mL's of anesthetic: 4 Blade size: 11 I&D procedure: Betadine prep applied, Chlorprep applied, Sterile dressing applied Incision Method: Incision made by scalpel Amount/type of drainage: 1.5 ml of pus Female anatomy: 1 - Right labial abscess Discharge - Discharge Clinical Impression: Abscess of right genital labia Condition: Stable Disposition: HOME, SELF-CARE Instructions: Abscess ([facility]) Additional Instructions: Please follow up with your regular doctor in 3 days. Return to the ED if your condition worsens. Prescriptions: Clindamycin HCl 300 mg PO TID #30 capsule Ibuprofen [Motrin 600 Mg Tablet] 600 mg PO TID PRN #15 tablet PRN Reason: Referrals: ALDEN WILLOUGHBY MD [Primary Care Provider] - Follow up as needed
[2018-01-01] MEDS ORDERED: LIDOCAINE 1% INJ-PF (10 MG/ML) 30 ML SDV INJ ONE (16:18)
[2018-01-01] MEDS ORDERED: CLINDAMYCIN PHOSPHATE INJ 300 MG/2 ML SDV IV ONE (16:19)
[2018-01-01 16:45] LABS: HEMATOCRIT 36.9 % (36.0-47.0); HEMOGLOBIN 12.3 g/dL (12.0-15.5); INTERNATIONAL RATION (INR) 1.05; MEAN CORPUSCULAR HEMOGLOBIN 29.4 pg (27.0-33.4); MEAN CORPUSCULAR HGB CONC 33.4 g/dL (32.0-36.0); MEAN CORPUSCULAR VOLUME 88 fl (80-97); PARTIAL THROMBOPLASTIN TIME 33.4 SEC (23.5-35.8); PLATELET COUNT 139 10^3/uL (150-450); PROTHROMBIN TIME 14.3 SEC (11.4-15.4); RED BLOOD COUNT 4.19 10^6/uL (3.72-5.28); RED CELL DISTRIBUTION WIDTH 17.3 % (11.5-14.0); WHITE BLOOD COUNT 4.9 10^3/uL (4.0-10.5)
[2018-01-01 16:59] LABS: ALANINE AMINOTRANSFERASE 81 U/L (9-52); ALBUMIN 3.7 g/dL (3.5-5.0); ALKALINE PHOSPHATASE 131 U/L (38-126); ANION GAP 9 (5-19); ASPARTATE AMINO TRANSFERASE 91 U/L (14-36); BILIRUBIN,DIRECT 0.4 mg/dL (0.0-0.4); BILIRUBIN,TOTAL 1.2 mg/dL (0.2-1.3); BLOOD UREA NITROGEN 6 mg/dL (7-20); CALCIUM 9.2 mg/dL (8.4-10.2); CARBON DIOXIDE 30 mmol/L (22-30); CHLORIDE 104 mmol/L (98-107); GLUCOSE 112 mg/dL (75-110); POTASSIUM 4.2 mmol/L (3.6-5.0); SODIUM 142.7 mmol/L (137-145); TOTAL PROTEIN 6.8 g/dL (6.3-8.2)
[2018-01-01 17:09] LABS: ABSOLUTE LYMPHOCYTES# (MANUAL) 1.6 10^3/uL (0.5-4.7); ABSOLUTE NEUTROPHILS# (MANUAL) 2.2 10^3/uL (1.7-8.2); BASOPHILS % (MANUAL) 1 % (0-2); EOSINOPHILS % (MANUAL) 1 % (0-6); LYMPHOCYTES % (MANUAL) 33 % (13-45); METAMYELOCYTES % (MANUAL) 1 % (0); MONOCYTES % (MANUAL) 21 % (3-13); SEGMENTED NEUTROPHILS % (MAN) 43 % (42-78); TOTAL CELLS COUNTED 100
[2018-01-01 17:11] LABS: ANISOCYTOSIS 1+; PLATELET COMMENT DECREASED; POIKILOCYTOSIS SLIGHT; TOXIC GRANULATION SLIGHT
[2018-01-01] MEDS ORDERED: CLINDAMYCIN 600 MG/D5W RTU 600 MG/50 ML RTUPB IV ONE (17:30)
[2018-01-01] MEDS ORDERED: OXYCODONE-ACETAMINOPHEN 5-325 MG TABLET PO ONE (17:31)
[2018-01-01] MEDS ORDERED: KETOROLAC TROMETHAMINE INJ/PF 30 MG/1 ML SDV IV ONE (17:31)
[2018-01-01] MEDS ORDERED: CLINDAMYCIN 600 MG/D5W RTU 600 MG/50 ML RTUPB IV SCH (22:00)
== END 2018-01-01 18:11 | disposition home or self-care (01) ==
LOC: ER 15:15
PROC: 0U9M0ZZ Drainage of Vulva, Open Approach (ICD-10-PCS; principal; 2018-01-01)
DX: N76.4 Abscess of vulva (principal); Z88.2 Allergy status to sulfonamides; Z88.7 Allergy status to serum and vaccine; Z90.49 Acquired absence of other specified parts of digestive tract; Z90.710 Acquired absence of both cervix and uterus
CPT/HCPCS: 99283; 96375; 96365; 36415; 87070; 87205; 85025; 85610; 85730; 87075; 87077; 80053; 56405; J1885; A9270

== ENCOUNTER → 2018-02-02 | Outpatient (CLI) | payer MEDICARE ==
--- NOTE | 2018-02-02 16:27 | RADIOLOGY REPORT (SQ) ---
EXAM DESCRIPTION: MRI ABDOMEN WITHOUT COMPLETED DATE/TIME: 02/02/2018 3:24 pm REASON FOR STUDY: ABDOMINAL PAIN, ABNORMAL LIVER ENZYMES R10.12 LEFT UPPER QUADRANT PAIN R74.8 ABN ORMAL LEVELS OF OTHER SERUM ENZYMES COMPARISON: CT abdomen pelvis 08/26/2015 TECHNIQUE: Noncontrast imaging, including in and out of phase T1 sequences. T2 gradient echo and ST IR images. LIMITATIONS: None. FINDINGS: ADRENAL GLANDS: Normal configuration. No mass. GALLBLADDER: Surgically absent LIVER AND BILIARY STRUCTURES: Liver is normal size. However there is profound decreased T2 signal th roughout the liver indicating heavy deposition of parenchymal iron. No liver masses. No cysts. No biliary ductal dilatation. No choledocholithiasis. SPLEEN: 14 cm in length. Profound decreased T2 weighted signal throughout the spleen indicating heav y deposition of parenchymal iron. 1 cm and 2 cm hemangiomas in the posterior spleen. PANCREAS: Diffuse fatty atrophy of the pancreas. No masses. No pancreatic ductal dilatation PERITONEUM: No ascites, gross adenopathy or implants. OTHER: There is also evidence of iron deposition in the bone marrow in the field of view. 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 Splenomegaly. No ascites. Post cholecystectomy. No choledocholithiasis or biliary ductal dilatation TECHNICAL DOCUMENTATION: JOB ID: [id number] [employer]- All Rights Reserved Reading location - IP/workstation name: [email or web address]
== END ==
LOC: RAD 13:48
PROVIDERS: ATTEND Internal Medicine
DX: R10.12 Left upper quadrant pain (principal); R74.8 Abnormal levels of other serum enzymes
CPT/HCPCS: 74181

== ENCOUNTER 2018-03-06 13:08 | Emergency (ER) | payer MEDICARE, MEDICAID ==
[2018-03-06] MEDS ORDERED: ASPIRIN 81 MG TABLET, CHEWABLE PO ONE (13:44)
[2018-03-06] MEDS ORDERED: NORMAL SALINE 500 ML IV ONE (15:23)
[2018-03-06] MEDS ORDERED: PROCHLORPERAZINE EDISYLATE INJ 10 MG/2 ML VIAL IV ONE (15:24)
[2018-03-06] MEDS ORDERED: ONDANSETRON HCL INJ/PF 4 MG/2 ML SDV IV ONE (15:24)
[2018-03-06] MEDS ORDERED: HYDROMORPHONE HCL 2 MG TABLET PO ONE (15:29)
[2018-03-06] MEDS ORDERED: LIDOCAINE 5% (700 MG) TRANSDERMAL ADH..PATCH TP ONE (15:30)
[2018-03-06 15:35] LABS: HEMATOCRIT 32.8 % (36.0-47.0); HEMOGLOBIN 11.6 g/dL (12.0-15.5); MEAN CORPUSCULAR HGB CONC 35.4 g/dL (32.0-36.0); MEAN CORPUSCULAR VOLUME 85 fl (80-97); PLATELET COUNT 142 10^3/uL (150-450); RED BLOOD COUNT 3.88 10^6/uL (3.72-5.28); RED CELL DISTRIBUTION WIDTH 17.1 % (11.5-14.0); WHITE BLOOD COUNT 8.6 10^3/uL (4.0-10.5)
--- NOTE | 2018-03-06 15:39 | RADIOLOGY REPORT (SQ) ---
EXAM DESCRIPTION: CHEST SINGLE VIEW COMPLETED DATE/TIME: 03/06/2018 3:27 pm REASON FOR STUDY: cp COMPARISON: 03/22/2017 EXAM PARAMETERS: NUMBER OF VIEWS: One view. TECHNIQUE: Single frontal radiographic view of the chest acquired. RADIATION DOSE: NA LIMITATIONS: None. FINDINGS: LUNGS AND PLEURA: There is increased opacification in the right base. There appears to be a small right pleural effusion. MEDIASTINUM AND HILAR STRUCTURES: No masses. Contour normal. HEART AND VASCULAR STRUCTURES: Heart size is borderline. There is no pulmonary edema. BONES: No acute findings. HARDWARE: None in the chest. OTHER: No other significant finding. IMPRESSION: Borderline heart size with no pulmonary edema. Small pleural effusion. Right middle lo be or lower lobe pneumonia. TECHNICAL DOCUMENTATION: JOB ID: [id number] [employer]- All Rights Reserved Reading location - IP/workstation name: [email or web address]
[2018-03-06 15:40] LABS: ALANINE AMINOTRANSFERASE 33 U/L (9-52); ALBUMIN 3.4 g/dL (3.5-5.0); ALKALINE PHOSPHATASE 148 U/L (38-126); ANION GAP 5 (5-19); ASPARTATE AMINO TRANSFERASE 44 U/L (14-36); BILIRUBIN,TOTAL 2.4 mg/dL (0.2-1.3); BLOOD UREA NITROGEN 10 mg/dL (7-20); CARBON DIOXIDE 33 mmol/L (22-30); CHLORIDE 99 mmol/L (98-107); GLUCOSE 158 mg/dL (75-110); POTASSIUM 4.4 mmol/L (3.6-5.0); SODIUM 137.4 mmol/L (137-145); TOTAL PROTEIN 6.7 g/dL (6.3-8.2)
[2018-03-06 15:41] LABS: CREATINE KINASE < 20 U/L (30-135)
[2018-03-06 15:51] LABS: ABSOLUTE LYMPHOCYTES# (MANUAL) 0.9 10^3/uL (0.5-4.7); ABSOLUTE MONOCYTES # (MANUAL) 1.4 10^3/uL (0.1-1.4); ABSOLUTE NEUTROPHILS# (MANUAL) 6.4 10^3/uL (1.7-8.2); BAND NEUTROPHILS % (MANUAL) 1 % (3-5); BASOPHILS % (MANUAL) 0 % (0-2); EOSINOPHILS % (MANUAL) 0 % (0-6); LYMPHOCYTES % (MANUAL) 5 % (13-45); MONOCYTES % (MANUAL) 16 % (3-13); SEGMENTED NEUTROPHILS % (MAN) 73 % (42-78); TOTAL CELLS COUNTED 100
[2018-03-06 15:52] LABS: CREATINE KINASE MB 0.34 ng/mL (<4.55)
[2018-03-06 15:53] LABS: ANISOCYTOSIS 1+; PLATELET COMMENT ADEQUATE; POLYCHROMASIA SLIGHT; TOXIC VACUOLATION PRESENT; TROPONIN I < 0.012 ng/mL
--- NOTE | 2018-03-06 17:15 | RADIOLOGY REPORT (SQ) ---
EXAM DESCRIPTION: CT CHEST WITHOUT COMPLETED DATE/TIME: 03/06/2018 5:02 pm REASON FOR STUDY: chest pain sob COMPARISON: Chest x-ray done earlier the same day. TECHNIQUE: CT scan performed of the chest without intravenous contrast. Images reviewed with lung, soft tissue and bone windows. Reconstructed coronal and sagittal MPR images reviewed. All images st ored on PACS. All CT scanners at this facility use dose modulation, iterative reconstruction, and/or weight based d osing when appropriate to reduce radiation dose to as low as reasonably achievable (ALARA). [facility]: Dose Right [facility]: CareDose [facility]: Dose Right [facility]: Teradose 4D [facility]: [employer] RADIATION DOSE: CT Rad equipment meets quality standard of care and radiation dose reduction techniq ues were employed. CTDIvol: 15.7 mGy. DLP: 584 mGy-cm. mGy. LIMITATIONS: No technical limitations. FINDINGS: LUNGS AND PLEURA: There is right middle and right lower lobe pneumonia as described on jil in film. There is a small right pleural effusion. The left lung field is clear. There is some nons pecific pleural thickening on the left posteriorly. HILAR AND MEDIASTINAL STRUCTURES: No identified masses or abnormal nodes. No obvious aneurysm. HEART AND VASCULAR STRUCTURES: No aneurysm. No pericardial effusion. UPPER ABDOMEN: No significant findings. Limited exam. THYROID AND OTHER SOFT TISSUES: No masses. No adenopathy. BONES: No significant finding. HARDWARE: None in the chest. OTHER: No other significant findings. IMPRESSION: Right middle and lower lobe pneumonia along with right pleural effusion. TECHNICAL DOCUMENTATION: JOB ID: [id number] Quality ID # [id number]: Final reports with documentation of one or more dose reduction techniques (e.g., Au tomated exposure control, adjustment of the mA and/or kV according to patient size, use of iterative reconstruction technique) 2010 [employer]- All Rights Reserved Reading location - IP/workstation name: [email or web address]
[2018-03-06] MEDS ORDERED: LEVOFLOXACIN 500 MG/D5W RTU 500 MG/100 ML RTUPB IV ONE (17:36)
[2018-03-06] MEDS ORDERED: LEVOFLOXACIN 500 MG TABLET PO ONE (18:12)
--- NOTE | 2018-03-06 18:14 | ER Document Report ---
ED General - General Chief Complaint: Chest Pain Stated Complaint: CHEST PAIN Time Seen by Provider: 03/06/18 14:23 TRAVEL OUTSIDE OF THE [place] IN LAST 30 DAYS: No - HPI Patient complains to provider of: Chest wall pain Notes: Patient presents today for chest wall pain diffuse mostly on the right side ongoing for greater than a week patient was recently admitted to [facility] after being diagnosed with atrial fibrillation sterile Jose Cruz was rate controlled patient states she was diagnosed chest wall pain at that time was placed on anti-inflammatory medication however today's had a small amount of nausea and some increased shortness of breath therefore came to the ER for further evaluation. Patient is on chronic pain medication consisting of Dilaudid for her chronic pain along with her fibromyalgia. Patient denies any fevers chills vomiting denies productive cough however does have a dry cough states compliance with all of her medications - Related Data Allergies/Adverse Reactions: Iodinated Contrast- Oral and IV Dye [IV Dye, Iodine Containing] Allergy (Severe , Verified 03/06/18 16:48) Anaphylaxis Sulfa (Sulfonamide Antibiotics) Allergy (Severe, Verified 03/06/18 13:11) tetanus toxoid, adsorbed Allergy (Verified 03/06/18 13:11) Tetanus Vaccines and Toxoid [Tetanus] Allergy (Verified 03/06/18 13:11) nitrofurantoin macrocrystalline [From Macrobid] Adverse Reaction (Severe, Verified 03/06/18 13:11) Hives, breathing problems Past Medical History - Social History Smoking Status: Never Smoker Frequency of alcohol use: None Drug Abuse: None Family History: Arthritis, CAD, COPD, CVA, DM, Hyperlipidemia, Hypertension, Malignancy. denies: Thyroid Disfunction Patient has suicidal ideation: No Patient has homicidal ideation: No - Past Medical History Cardiac Medical History: Reports: Hx Atrial Fibrillation - DX'd 03/2018, Hx Hypercholesterolemia Pulmonary Medical History: Reports: Hx Asthma, Hx Bronchitis, Hx Pneumonia Neurological Medical History: Reports: Hx Cerebrovascular Accident Renal/ Medical History: Denies: Hx Peritoneal Dialysis Malignancy Medical History: 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 GI Medical History: Reports: Hx Gastroesophageal Reflux Disease, Hx Irritable Bowel, Hx Endoscopy Musculoskeletal Medical History: Reports Hx Arthritis, Reports Hx Fibromyalgia, Reports Hx Musculoskeletal Trauma Psychiatric Medical History: Reports: Hx Anxiety Past Surgical History: Reports: Hx Abdominal Surgery - colon resection, Hx Appendectomy, Hx Bowel Surgery - colectomy, Hx Breast Surgery - L breast lump; non-cancerous, Hx Cholecystectomy, Hx Hysterectomy, Hx Orthopedic Surgery - L knee--torn meniscus, Hx Tonsillectomy - Immunizations Immunizations up to date: Yes Hx Diphtheria, Pertussis, Tetanus Vaccination: Yes - 2009 allergic to it Review of Systems - Review of Systems Constitutional: No symptoms reported EENT: No symptoms reported Cardiovascular: Chest pain Respiratory: No symptoms reported Gastrointestinal: No symptoms reported Genitourinary: No symptoms reported Female Genitourinary: No symptoms reported Musculoskeletal: No symptoms reported Skin: No symptoms reported Hematologic/Lymphatic: No symptoms reported Neurological/Psychological: No symptoms reported -: Yes All other systems reviewed and negative Physical Exam - Vital signs Vitals: Temp Pulse Resp BP Pulse Ox 98.2 F 117 H 18 122/82 95 03/06/18 13:27 03/06/18 13:27 03/06/18 13:27 03/06/18 13:27 03/06/18 13:27 Interpretation: Normal - General General appearance: Appears well, Alert - HEENT Head: Normocephalic, Atraumatic Eyes: Normal Pupils: PERRL - Respiratory Respiratory status: No respiratory distress Chest status: Tender - Diffuse pain to palpation throughout the chest wall reproduces the patient's symptoms. Breath sounds: Normal Chest palpation: Normal - Cardiovascular Rhythm: Regular Heart sounds: Normal auscultation Murmur: No - Abdominal Inspection: Normal Distension: No distension Bowel sounds: Normal Tenderness: Nontender Organomegaly: No organomegaly - Back Back: Normal, Nontender - Extremities General upper extremity: Normal inspection, Nontender, Normal color, Normal ROM , Normal temperature General lower extremity: Normal inspection, Nontender, Normal color, Normal ROM , Normal temperature, Normal weight bearing. No: Kim's sign - Neurological Neuro grossly intact: Yes Cognition: Normal Orientation: AAOx4 Adel Coma Scale Eye Opening: Spontaneous Adel Coma Scale Verbal: Oriented Jimy Coma Scale Motor: Obeys Commands Jimy Coma Scale Total: 15 Speech: Normal Motor strength normal: LUE, RUE, LLE, RLE Sensory: Normal - Psychological Associated symptoms: Normal affect, Normal mood - Skin Skin Temperature: Warm Skin Moisture: Dry Skin Color: Normal Course - Re-evaluation Re-evalutation: 03/06/18 22:19 EKG does not show any ischemic changes slightly tachycardic. Patient troponin is negative. Chest x-ray showed pneumonia although lung sounds are clear patient's presentation is not very consistent with pneumonia therefore CT scan was performed which did confirm the presence of a pneumonia. Discussed possibility of admission with the patient however patient declines that she is supposed to follow-up with her PCP and her GI specialist tomorrow for further evaluation agrees with discharge home after a dose of Levaquin understands reasons to return patient discharged home - Vital Signs Vital signs: Temp Pulse Resp BP Pulse Ox 98.9 F 117 H 17 109/48 L 95 03/06/18 19:13 03/06/18 13:27 03/06/18 19:01 03/06/18 19:01 03/06/18 19:01 - Laboratory Result Diagrams: 03/06/18 15:00 03/06/18 15:00 Laboratory results interpreted by me: 03/06/18 03/06/18 03/06/18 15:00 15:00 15:00 Hgb 11.6 L Hct 32.8 L RDW 17.1 H Plt Count 142 L Band Neutrophils % 1 L Lymphocytes % (Manual) 5 L Monocytes % (Manual) 16 H Carbon Dioxide 33 H Glucose 158 H Total Bilirubin 2.4 H Direct Bilirubin 1.0 H AST 44 H Alkaline Phosphatase 148 H Creatine Kinase < 20 L Albumin 3.4 L Lipase < 10.0 L Discharge - Discharge Clinical Impression: Chest wall pain, Pneumonia, History of fibromyalgia Condition: Good Disposition: HOME, SELF-CARE Instructions: Chest Wall Pain ([facility]), Oral Narcotic Medication ([facility]), Pneumonia ([facility]) Additional Instructions: CT scan is suggestive of a right middle lobe pneumonia we will treat you with Levaquin. I would recommend following up with your primary care physician and your specialist tomorrow return to ER if symptoms worsen. Continue her home prescribed medications. Prescriptions: Levofloxacin [Levaquin 500 mg Tablet] 500 mg PO DAILY #8 tablet Referrals: ZACH PRUITT MD [Primary Care Provider] - Follow up as needed
[2018-03-06 19:13] VITALS: BP 109/48
--- NOTE | 2018-03-07 08:53 | EKG REPORT ---
SEVERITY:- ABNORMAL ECG - SINUS TACHYCARDIA PAIRED VENTRICULAR PREMATURE COMPLEXES ABERRANT COMPLEX BORDERLINE T WAVE ABNORMALITIES : Confirmed by: Diaz Reynolds 07-Mar-2018 08:52:52
== END 2018-03-06 19:29 | disposition home or self-care (01) ==
LOC: ER 13:08
DX: J18.9 Pneumonia, unspecified organism (principal); R07.89 Other chest pain; I48.91 Unspecified atrial fibrillation; R11.0 Nausea; M79.7 Fibromyalgia; R06.02 Shortness of breath; R05 Cough; R00.0 Tachycardia, unspecified; J45.909 Unspecified asthma, uncomplicated; G89.29 Other chronic pain; Z79.891 Long term (current) use of opiate analgesic; Z91.041 Radiographic dye allergy status; Z88.2 Allergy status to sulfonamides; Z88.7 Allergy status to serum and vaccine; Z85.6 Personal history of leukemia
CPT/HCPCS: 93005; 99285; 96361; 96375; 96365; 36415; 87040; 82553; 82550; 83690; 85025; 80053; 84484; 71045; 71250; 93010; A9270 ×3; J1956; J0780; J2405

== ENCOUNTER 2018-03-08 20:33 | Inpatient (IN) | payer MEDICARE, MEDICAID ==
--- NOTE | 2018-03-08 22:26 | ER Document Report ---
ED General - General Chief Complaint: Shortness Of Breath Stated Complaint: SHORTNESS OF BREATH Time Seen by Provider: 03/08/18 21:25 Notes: Patient is a 77-year-old female who presents for shortness of breath, right chest pain, and pneumonia symptoms. She was seen in the emergency department, 2 days ago, in which she was going to be admitted, but she needed to go to to important appointment and decided to not be admitted. She was started on Levaquin for outpatient treatment. She has a history of atrial fibrillation which she is on Eliquis for, hemochromatosis, chronic pain, fibromyalgia, AML. TRAVEL OUTSIDE OF THE [place] IN LAST 30 DAYS: No - Related Data Allergies/Adverse Reactions: Iodinated Contrast- Oral and IV Dye [IV Dye, Iodine Containing] Allergy (Severe , Verified 03/06/18 16:48) Anaphylaxis Sulfa (Sulfonamide Antibiotics) Allergy (Severe, Verified 03/06/18 13:11) tetanus toxoid, adsorbed Allergy (Verified 03/06/18 13:11) Tetanus Vaccines and Toxoid [Tetanus] Allergy (Verified 03/06/18 13:11) nitrofurantoin macrocrystalline [From Macrobid] Adverse Reaction (Severe, Verified 03/06/18 13:11) Hives, breathing problems Past Medical History - Social History Smoking Status: Never Smoker Chew tobacco use (# tins/day): No Frequency of alcohol use: None Drug Abuse: None Family History: Arthritis, CAD, COPD, CVA, DM, Hyperlipidemia, Hypertension, Malignancy. denies: Thyroid Disfunction Patient has suicidal ideation: No Patient has homicidal ideation: No - Past Medical History Cardiac Medical History: Reports: Hx Atrial Fibrillation - DX'd 03/2018, Hx Hypercholesterolemia Pulmonary Medical History: Reports: Hx Asthma, Hx Bronchitis, Hx Pneumonia Neurological Medical History: Reports: Hx Cerebrovascular Accident Renal/ Medical History: Denies: Hx Peritoneal Dialysis Malignancy Medical History: 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 GI Medical History: Reports: Hx Gastroesophageal Reflux Disease, Hx Irritable Bowel, Hx Endoscopy Musculoskeletal Medical History: Reports Hx Arthritis, Reports Hx Fibromyalgia, Reports Hx Musculoskeletal Trauma Psychiatric Medical History: Reports: Hx Anxiety Past Surgical History: Reports: Hx Abdominal Surgery - colon resection, Hx Appendectomy, Hx Bowel Surgery - colectomy, Hx Breast Surgery - L breast lump; non-cancerous, Hx Cholecystectomy, Hx Hysterectomy, Hx Orthopedic Surgery - L knee--torn meniscus, Hx Tonsillectomy - Immunizations Immunizations up to date: Yes Hx Diphtheria, Pertussis, Tetanus Vaccination: Yes - 2009 allergic to it Review of Systems - Review of Systems Notes: REVIEW OF SYSTEMS: CONSTITUTIONAL : Denies fever, chills, or sweats. Denies recent illness. EENT: Denies eye, ear, throat, or mouth pain or symptoms. Denies nasal or sinus congestion. CARDIOVASCULAR: Denies chest pain. RESPIRATORY: Positive for difficulty breathing. Positive for pleuritic chest pain GASTROINTESTINAL: Denies abdominal pain. Denies nausea, vomiting, or diarrhea. Denies constipation. Last BM: GENITOURINARY: Denies difficulty urinating, painful urination, burning, frequency, or blood in urine. FEMALE GENITOURINARY: Denies vaginal bleeding, abnormal or irregular periods. LMP: MUSCULOSKELETAL: Denies neck or back pain or joint pain or swelling. SKIN: Denies rash or skin lesions. HEMATOLOGIC : Denies easy bruising or bleeding. LYMPHATIC: Denies swollen, enlarged glands. NEUROLOGICAL: Denies altered mental status or loss of consciousness. Denies headache. Denies weakness or paralysis or loss of use of either side. Denies problems with gait or speech. Denies sensory or motor loss. PSYCHIATRIC: Denies anxiety or stress or depression. ALL OTHER SYSTEMS REVIEWED AND NEGATIVE. Physical Exam - Vital signs Vitals: Temp Pulse Resp BP Pulse Ox 98.5 F 103 H 18 132/64 H 94 03/08/18 20:44 03/08/18 20:44 03/08/18 20:44 03/08/18 20:44 03/08/18 20:44 - Notes Notes: PHYSICAL EXAMINATION: GENERAL: Ill-appearing, well-nourished and in no acute distress. HEAD: Atraumatic, normocephalic. EYES: Pupils equal round and reactive to light, extraocular movements intact, sclera anicteric, conjunctiva are normal. ENT: nares patent, oropharynx clear without exudates. Moist mucous membranes. NECK: Normal range of motion, supple without lymphadenopathy LUNGS: Breath sounds diminished in right middle and lower lobes HEART: Regular rate and rhythm without murmurs ABDOMEN: Soft, nontender, normoactive bowel sounds. No guarding, no rebound. No masses appreciated. EXTREMITIES: Normal range of motion, no pitting or edema. No cyanosis. NEUROLOGICAL: No focal neurological deficits. Moves all extremities spontaneously and on command. PSYCH: Normal mood, normal affect. SKIN: Warm, Dry, normal turgor, no rashes or lesions noted. Course - Re-evaluation Re-evalutation: 03/08/18 2345 since this patient has already been diagnosed with pneumonia, I do not suspect she is having an acute myocardial infarction, aortic dissection, pneumothorax, or any immediately life-threatening medical conditions at this time. 03/09/18 00:15 patient's chest x-ray has not changed from 2 days ago. Since there has been no improvement with outpatient treatment, the patient will need to be admitted. Will contact Dr. Ayala for admission. 03/09/18 01:30 I have discussed her case with Dr. Ayala, she will come to the patient's bedside to assess and evaluate her condition and determine admission criteria. 03/09/18 02:25 Dr. Ayala at bedside and states she will admit the patient for observation. - Vital Signs Vital signs: Temp Pulse Resp BP Pulse Ox 98.6 F 103 H 14 126/97 H 93 03/08/18 23:19 03/08/18 20:44 03/09/18 00:00 03/08/18 23:11 03/09/18 00:00 - Laboratory Result Diagrams: 03/08/18 23:05 03/08/18 23:05 Laboratory results interpreted by me: 03/08/18 03/08/18 23:05 23:05 RBC 3.60 L Hgb 10.8 L Hct 30.7 L RDW 17.5 H Plt Count 149 L Band Neutrophils % 1 L Monocytes % (Manual) 15 H Total Bilirubin 2.2 H Direct Bilirubin 1.0 H Alkaline Phosphatase 174 H Albumin 3.4 L Discharge - Discharge Clinical Impression: Pneumonia Qualifiers: Pneumonia type: due to unspecified organism Laterality: right Lung location: unspecified part of lung Qualified Code(s): J18.9 - Pneumonia, unspecified organism Disposition: ADMITTED OBSERVATION Admitting Provider: Hospitalist Unit Admitted: Telemetry Referrals: ZACH PRUITT MD [Primary Care Provider] - Follow up as needed
[2018-03-08] MEDS ORDERED: HYDROMORPHONE HCL 2 MG TABLET PO ONE (22:37)
--- NOTE | 2018-03-08 23:00 | RADIOLOGY REPORT (SQ) ---
EXAM DESCRIPTION: XR CHEST 1 VIEW COMPLETED DATE/TME: 03/08/2018 22:28 CLINICAL HISTORY: 77 years, Female, shortness of breath Compared to chest radiographs dated 03/06/2018. 03/22/2017. Findings: The heart is moderately enlarged. Patchy right lower lobe pneumonia. Mild right pleural effusion. No pneumothorax. IMPRESSION: Right lower lobe pneumonia with mild right pleural effusion, similar to the prior study, new from prior studies from 03/22/2017.
[2018-03-08 23:19] LABS: HEMATOCRIT 30.7 % (36.0-47.0); HEMOGLOBIN 10.8 g/dL (12.0-15.5); MEAN CORPUSCULAR HGB CONC 35.2 g/dL (32.0-36.0); MEAN CORPUSCULAR VOLUME 85 fl (80-97); PLATELET COUNT 149 10^3/uL (150-450); RED CELL DISTRIBUTION WIDTH 17.5 % (11.5-14.0); VENOUS BLOOD BASE EXCESS 2.9 mmol/L; VENOUS BLOOD HCO3 28.2 mmol/L (20-32); VENOUS BLOOD PCO2 46.8 mmHg (35-63); VENOUS BLOOD PH 7.4 (7.30-7.42); WHITE BLOOD COUNT 5.2 10^3/uL (4.0-10.5)
[2018-03-08 23:34] LABS: ALANINE AMINOTRANSFERASE 35 U/L (9-52); ALBUMIN 3.4 g/dL (3.5-5.0); ALKALINE PHOSPHATASE 174 U/L (38-126); ANION GAP 10 (5-19); ASPARTATE AMINO TRANSFERASE 30 U/L (14-36); BILIRUBIN,TOTAL 2.2 mg/dL (0.2-1.3); BLOOD UREA NITROGEN 12 mg/dL (7-20); CALCIUM 8.7 mg/dL (8.4-10.2); CARBON DIOXIDE 28 mmol/L (22-30); CHLORIDE 99 mmol/L (98-107); GLUCOSE 105 mg/dL (75-110); POTASSIUM 3.6 mmol/L (3.6-5.0); TOTAL PROTEIN 6.5 g/dL (6.3-8.2)
[2018-03-08 23:38] LABS: ABSOLUTE MONOCYTES # (MANUAL) 0.8 10^3/uL (0.1-1.4); ABSOLUTE NEUTROPHILS# (MANUAL) 3.4 10^3/uL (1.7-8.2); BAND NEUTROPHILS % (MANUAL) 1 % (3-5); BASOPHILS % (MANUAL) 0 % (0-2); EOSINOPHILS % (MANUAL) 0 % (0-6); LYMPHOCYTES % (MANUAL) 16 % (13-45); MONOCYTES % (MANUAL) 15 % (3-13); SEGMENTED NEUTROPHILS % (MAN) 65 % (42-78); TOTAL CELLS COUNTED 100
[2018-03-08 23:40] LABS: ANISOCYTOSIS 2+; PLATELET COMMENT DECREASED; POLYCHROMASIA SLIGHT; TOXIC VACUOLATION PRESENT
[2018-03-09] MEDS ORDERED: ONDANSETRON 4 MG TAB.RAPDIS PO ONE (01:27)
[2018-03-09] MEDS ORDERED: CEFEPIME 2 GM/D5W RTU 2 GM/50 ML RTUPB IV ONE ×2 (01:35→02:45)
[2018-03-09] MEDS ORDERED: ONDANSETRON HCL INJ/PF 4 MG/2 ML SDV ONE (01:35)
[2018-03-09] MEDS ORDERED: ONDANSETRON HCL INJ/PF 4 MG/2 ML SDV IV ONE (01:37)
[2018-03-09] MEDS ORDERED: IPRATROPIUM/ALBUTEROL 0.5-2.5 MG/3 ML AMPUL NEB PRN (02:17)
[2018-03-09] MEDS ORDERED: HYDROMORPHONE HCL INJ/PF 2 MG/ML AMPULE IV PRN (02:46)
--- NOTE | 2018-03-09 02:46 | PDOC H&P ---
History of Present Illness Admission Date/PCP: 03/09/2018 ZACH PRUITT MD Patient complains of: Generalized weakness History of Present Illness: KIRILL ESPARZA is a 77 year old female with a complex medical history that I will detail below. Patient has been in our facility 03/06 and was diagnosed with right middle lobe pneumonia after CT of the chest was done, initially was plan to admit the patient but patient and decline as she had a very important appointment the next day with her GI doctor. Her decided to bring her again today as he feels that she is having shallow breathing, patient is not hypoxic but has right side pleuritic chest pain. Patient is ambulatory with a cane but has been weaker for the last 2 days, patient is not tachypneic or febrile. Patient was admitted at [facility] last week from to Sunday with a new diagnosis of atrial fibrillation and was started on Eliquis. Denies cough, phlegm, wheezing, fever, dizziness, lightheadedness, abdominal pain, diarrhea or constipation. Past Medical History Cardiac Medical History: Reports: Atrial Fibrillation - DX'd 03/2018 on Eliquis , Hyperlipidema Pulmonary Medical History: Reports: Asthma, Bronchitis, Pneumonia Malignancy Medical History: Reports: Leukemia - AML GI Medical History: Reports: Gastroesophageal Reflux Disease Musculoskeltal Medical History: Reports: Arthritis, Fibromyalgia, Other - Chronic pain Psychiatric Medical History: Hematology: Reports: Anemia, Other Hematology History Note: Hemochromatosis Acute myelogenous leukemia Past Surgical History Past Surgical History: Reports: Appendectomy, Cholecystectomy, Hysterectomy, Orthopedic Surgery - L knee--torn meniscus, Tonsillectomy Social History Information Source: Patient Smoking Status: Never Smoker Frequency of Alcohol Use: None Hx Recreational Drug Use: No Hx Prescription Drug Abuse: No Past Social History Note: Lives with her who is at the bedside. Walks with a cane Family History Family History: Arthritis, CAD, COPD, CVA, DM, Hyperlipidemia, Hypertension, Malignancy. denies: Thyroid Disfunction Parental Family History Reviewed: Yes - As above Children Family History Reviewed: NA Sibling(s) Family History Reviewed.: NA Medication/Allergy Home Medications: Hydromorphone HCl [Dilaudid] 8 mg PO TID 03/24/13 Albuterol Sulfate [Albuterol Sulfate 2.5mg/3 mL] 1 vial IH Q4 PRN #30 vial 07/22 Albuterol Sulfate [Proair HFA Inhalation Aerosol 8.5 gm MDI] 2 puff IH Q4H PRN # 1 mdi 07/22/16 Ondansetron [Zofran Odt 4 mg Tablet] 1 - 2 tab PO Q4H PRN #15 tab.rapdis Ibuprofen [Motrin 600 Mg Tablet] 600 mg PO TID PRN #15 tablet 01/01/18 Levofloxacin [Levaquin 500 mg Tablet] 500 mg PO DAILY #8 tablet 03/06/18 Aspirin 81 mg PO QAM 03/09/18 Atorvastatin Calcium 40 mg PO QAM 03/09/18 Diltiazem HCl [Diltiazem 24Hr ER] 120 mg PO QAM 03/09/18 Oxycodone HCl [Oxycontin] 5 mg PO BID 03/09/18 Prochlorperazine Maleate [Compazine 10 mg Tablet] 10 mg PO Q8H 03/09/18 Simethicone 125 mg PO PRN PRN 03/09/18 Allergies/Adverse Reactions: Iodinated Contrast- Oral and IV Dye [IV Dye, Iodine Containing] Allergy (Severe , Verified 03/06/18 16:48) Anaphylaxis Sulfa (Sulfonamide Antibiotics) Allergy (Severe, Verified 03/06/18 13:11) tetanus toxoid, adsorbed Allergy (Verified 03/06/18 13:11) Tetanus Vaccines and Toxoid [Tetanus] Allergy (Verified 03/06/18 13:11) nitrofurantoin macrocrystalline [From Macrobid] Adverse Reaction (Severe, Verified 03/06/18 13:11) Hives, breathing problems Review of Systems Review of Systems: As outlined above, others negative Physical Exam Vital Signs: Temp Pulse Resp BP Pulse Ox 98.6 F 103 H 14 126/97 H 93 03/08/18 23:19 03/08/18 20:44 03/09/18 00:00 03/08/18 23:11 03/09/18 00:00 Intake & Output 03/07/18 03/08/18 03/09/18 06:59 06:59 06:59 Weight 73.482 kg Additional comments: General appearance: Well-developed, obese, weak looking, alert and cooperative, and appears to be in no acute distress Head: Normocephalic Eyes: PEERL, EOMI, vision is grossly intact. Ears: External auditory canal and tympanic membranes clear, hearing grossly intact. Nose: No nasal discharge. Throat: Oral cavity and pharynx normal. No inflammation, swelling, exudate or lesions. Neck: Neck supple, nontender without lymphadenopathy, masses or thyromegaly. Cardiac: Normal S1 and S2. No S3, S4 or murmurs. Rhythm is regular. There is no peripheral edema, cyanosis or pallor. Extremities are warm and well perfused. Capillary refill is less than 2 seconds. No carotid bruits. Lungs: C right one third inferior rales, no rhonchi or wheezing no diminished breath sounds. Not using accessory muscles. Abdomen: Positive bowel sounds. Soft. Nondistended, nontender. No guarding or rebound. No masses. Extremities: No significant deformity or joint abnormality. No edema. Peripheral pulses intact. No varicosities. Neurological: Cranial nerves II through XII grossly intact. Strength and sensation symmetric and intact throughout. Reflexes 2+ throughout. Skin: Skin normal color, texture and turgor with no lesions or eruptions, warm and dry. Psychiatric: The mental examination revealed the patient was oriented to person , place, and time. The patient was able to demonstrate good judgment on recent , without hallucinations, abnormal affect or abnormal behaviors. Results Laboratory Results: 03/08/18 23:05 03/08/18 23:05 03/08/18 03/08/18 03/08/18 23:05 23:05 23:05 WBC 5.2 RBC 3.60 L Hgb 10.8 L Hct 30.7 L MCV 85 MCH 30.0 MCHC 35.2 RDW 17.5 H Plt Count 149 L Seg Neutrophils % Not Reportable Lymphocytes % Not Reportable Monocytes % Not Reportable Eosinophils % Not Reportable Basophils % Not Reportable Absolute Neutrophils Not Reportable Absolute Lymphocytes Not Reportable Absolute Monocytes Not Reportable Absolute Eosinophils Not Reportable Absolute Basophils Not Reportable VBG pH 7.40 VBG pCO2 46.8 VBG HCO3 28.2 VBG Base Excess 2.9 Sodium 137.0 Potassium 3.6 Chloride 99 Carbon Dioxide 28 Anion Gap 10 BUN 12 Creatinine 0.76 Est GFR ( Amer) > 60 Est GFR (Non-Af Amer) > 60 Glucose 105 Calcium 8.7 Total Bilirubin 2.2 H AST 30 ALT 35 Alkaline Phosphatase 174 H Total Protein 6.5 Albumin 3.4 L 03/08/18 23:05 Troponin I < 0.012 Impressions: Chest X-Ray 03/08/18 22:28 IMPRESSION: Right lower lobe pneumonia with mild right pleural effusion, similar to the prior study, new from prior studies from 03/22/2017. Assessment & Plan - Diagnosis (1) Healthcare-associated pneumonia Is this a current diagnosis for this admission?: Yes Plan: Weight will place the patient on IV cefepime. Respiratory therapy consult. Nebulizer treatments as needed. Sputum culture if possible. Incentive spirometry and pulmonary toilet. Do not feel patient needs to be on the steroids. Oxygen protocol via nasal cannula if needed CT shows right middle and lower lobe pneumonia with pleural effusion which is most likely parapneumonic effusion and probably would resolve as pneumonia improved. (2) Fibromyalgia Is this a current diagnosis for this admission?: Yes Plan: Continue home pain medication (3) Acute myeloid leukemia Is this a current diagnosis for this admission?: Yes Plan: Not currently on treatment, controlled. (4) Paroxysmal atrial fibrillation Is this a current diagnosis for this admission?: Yes Plan: Sinus rhythm, continue Eliquis and Cardizem (5) Chronic pain Is this a current diagnosis for this admission?: Yes Plan: On high-dose of p.o. Dilaudid 8 mg a day, as per . (6) Physical deconditioning Is this a current diagnosis for this admission?: Yes Plan: Generalized weakness, worsening with current diagnosis. 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 - Time Time Spent: 30 to 50 Minutes
[2018-03-09] MEDS ORDERED: SIMETHICONE 40 MG/0.6 ML DROPS 30ML PO PRN ×2 (04:15→09:24)
[2018-03-09] MEDS ORDERED: PROCHLORPERAZINE MALEATE 10 MG TABLET ONE (05:29)
[2018-03-09] MEDS: PROCHLORPERAZINE MALEATE 10 MG TABLET PO SCH ×3 (05:36→21:23)
[2018-03-09] MEDS ORDERED: IBUPROFEN 600 MG TABLET PO SCH (06:00)
[2018-03-09 07:43] LABS: APPEARANCE,URINE CLOUDY; BILIRUBIN,URINE NEGATIVE (NEGATIVE); COLOR,URINE YELLOW; GLUCOSE, URINE NEGATIVE (NEGATIVE); KETONES,URINE NEGATIVE (NEGATIVE); LEUKOCYTE ESTERASE,URINE NEGATIVE (NEGATIVE); NITRITE,URINE NEGATIVE (NEGATIVE); PROTEIN,URINE NEGATIVE (NEGATIVE); URINE SPECIFIC GRAVITY 1.006
[2018-03-09] MEDS: ATORVASTATIN CALCIUM 40 MG TABLET PO SCH (09:43)
[2018-03-09] MEDS: ASPIRIN 81 MG TABLET, CHEWABLE PO SCH (09:43)
[2018-03-09] MEDS: HYDROMORPHONE HCL 2 MG TABLET PO SCH ×3 (09:44→17:27)
[2018-03-09] MEDS: DILTIAZEM HCL 120 MG CAP.SR.24H PO SCH (09:44)
[2018-03-09] MEDS: OXYCODONE HCL IR 5 MG TABLET PO SCH ×2 (09:46→17:28)
[2018-03-09] MEDS ORDERED: CEFEPIME 2 GM/D5W RTU 2 GM/50 ML RTUPB IV SCH (10:00)
[2018-03-09] MEDS: ONDANSETRON 4 MG TAB.RAPDIS PO PRN (17:28)
[2018-03-09] MEDS: CEFEPIME 2 GM/D5W RTU 2 GM/50 ML RTUPB IV SCH (17:30)
[2018-03-09] MEDS: APIXABAN 5 MG TABLET PO SCH (17:31)
[2018-03-09] MEDS: NORMAL SALINE 1000 ML 1,000 ML IV PRN (17:31)
--- NOTE | 2018-03-09 19:19 | EKG REPORT ---
SEVERITY:- OTHERWISE NORMAL ECG - SINUS RHYTHM VENTRICULAR PREMATURE COMPLEX : Confirmed by: Diaz Reynolds 09-Mar-2018 19:19:04
[2018-03-09] MEDS: IBUPROFEN 600 MG TABLET PO PRN (21:23)
[2018-03-10] MEDS: CEFEPIME 2 GM/D5W RTU 2 GM/50 ML RTUPB IV SCH ×2 (05:14→17:35)
[2018-03-10] MEDS: PROCHLORPERAZINE MALEATE 10 MG TABLET PO SCH ×3 (05:14→21:43)
[2018-03-10 05:38] LABS: HEMATOCRIT 24.9 % (36.0-47.0); MEAN CORPUSCULAR HEMOGLOBIN 29.6 pg (27.0-33.4); MEAN CORPUSCULAR HGB CONC 34.4 g/dL (32.0-36.0); MEAN CORPUSCULAR VOLUME 86 fl (80-97); PLATELET COUNT 114 10^3/uL (150-450); RED CELL DISTRIBUTION WIDTH 17.6 % (11.5-14.0); WHITE BLOOD COUNT 3.1 10^3/uL (4.0-10.5)
[2018-03-10 05:56] LABS: ALANINE AMINOTRANSFERASE 27 U/L (9-52); ALBUMIN 2.6 g/dL (3.5-5.0); ALKALINE PHOSPHATASE 115 U/L (38-126); ANION GAP 5 (5-19); ASPARTATE AMINO TRANSFERASE 25 U/L (14-36); BILIRUBIN,DIRECT 0.8 mg/dL (0.0-0.4); BILIRUBIN,TOTAL 1.6 mg/dL (0.2-1.3); BLOOD UREA NITROGEN 10 mg/dL (7-20); CALCIUM 8.2 mg/dL (8.4-10.2); GLUCOSE 98 mg/dL (75-110); POTASSIUM 3.9 mmol/L (3.6-5.0); TOTAL PROTEIN 5.3 g/dL (6.3-8.2)
[2018-03-10 05:57] LABS: HEMOGLOBIN 8.6 g/dL (12.0-15.5)
[2018-03-10 06:02] LABS: CARBON DIOXIDE 29 mmol/L (22-30); CHLORIDE 103 mmol/L (98-107); SODIUM 136.7 mmol/L (137-145)
[2018-03-10 06:15] LABS: ABSOLUTE LYMPHOCYTES# (MANUAL) 0.9 10^3/uL (0.5-4.7); ABSOLUTE MONOCYTES # (MANUAL) 0.7 10^3/uL (0.1-1.4); ABSOLUTE NEUTROPHILS# (MANUAL) 1.5 10^3/uL (1.7-8.2); ANISOCYTOSIS 2+; BASOPHILS % (MANUAL) 0 % (0-2); EOSINOPHILS % (MANUAL) 0 % (0-6); LYMPHOCYTES % (MANUAL) 29 % (13-45); MONOCYTES % (MANUAL) 22 % (3-13); POLYCHROMASIA 1+; SEGMENTED NEUTROPHILS % (MAN) 49 % (42-78); TOTAL CELLS COUNTED 100
[2018-03-10 06:16] LABS: PLATELET COMMENT ADEQUATE
[2018-03-10] MEDS: NORMAL SALINE 1000 ML 1,000 ML IV PRN ×2 (08:50→23:24)
[2018-03-10] MEDS: DILTIAZEM HCL 120 MG CAP.SR.24H PO SCH (08:58)
[2018-03-10] MEDS: ASPIRIN 81 MG TABLET, CHEWABLE PO SCH (08:58)
[2018-03-10] MEDS: ATORVASTATIN CALCIUM 40 MG TABLET PO SCH (08:59)
[2018-03-10] MEDS: OXYCODONE HCL IR 5 MG TABLET PO SCH ×2 (10:02→17:35)
[2018-03-10] MEDS: HYDROMORPHONE HCL 2 MG TABLET PO SCH ×3 (10:03→17:37)
[2018-03-10] MEDS: APIXABAN 5 MG TABLET PO SCH ×2 (10:04→17:38)
--- NOTE | 2018-03-10 10:55 | PDOC PROGRESS REPORT ---
Subjective Progress Note for:: 03/10/18 Subjective:: 77-year-old female GERD, arthritis, fibromyalgia, chronic pain, anemia, hemochromatosis, AML, pneumonia and recently diagnosed atrial fibrillation on . Patient was admitted in [facility] on 03/06/2018 and was diagnosed with right middle lobe pneumonia but patient left the hospital for an important appointment with her enterprise application administrator. Patient was admitted to [facility] last week from to Sunday was diagnosed with atrial fibrillation and started on Eliquis and Cardizem. She was diagnosed with possible hospital-acquired pneumonia and was started on cefepime IV. A chest x- ray confirmed right lower lobe pneumonia and persistent effusion. Troponins were negative and EKG did not show any acute abnormalities. 03/10/2018. No acute events overnight. Upon my encounter patient was sitting in the bed not in any acute distress very pleasant and cooperative with physical examination. When asked how her night was she said it was okay but she could not get a good night sleep because of right-sided persistent pleuritic chest pain. She is asking when she can go home. Denies any fever, chills, nausea, vomiting, diarrhea, shortness of breath, constipation or any urinary symptoms. Endorses right-sided pleuritic chest pain and right-sided back pain. Reason For Visit: [facility] Physical Exam Vital Signs: Temp Pulse Resp BP Pulse Ox 97.8 F 94 18 128/75 H 97 03/10/18 08:00 03/10/18 08:00 03/10/18 08:00 03/10/18 08:00 03/10/18 08:00 Pulse Oximeter Continuous Start: 03/09/18 02: 18 Freq: RTQ4 Status: Active Document 03/10/18 08:00 LDA (Rec: 03/10/18 09:35 LDA [id number]) Pulse Oximetry Assessment Oxygen Saturation (92-100) 97 Oxygen Delivery Method Room Air Fraction of Inspired Oxygen (FIO2) 21 Equipment Usage Equipment in Use Continuous SpO2 Machine # 1 Intake & Output 03/09/18 03/10/18 03/11/18 06:59 06:59 06:59 Intake Total 984 900 Output Total 2150 Balance -1166 900 Weight 73.5 kg 75.5 kg General appearance: PRESENT: no acute distress, well-developed, well-nourished Head exam: PRESENT: atraumatic, normocephalic Eye exam: PRESENT: conjunctiva pink, EOMI, PERRLA. ABSENT: scleral icterus Ear exam: PRESENT: normal external ear exam Mouth exam: PRESENT: moist, tongue midline Neck exam: ABSENT: carotid bruit, JVD, lymphadenopathy, thyromegaly Respiratory exam: PRESENT: clear to auscultation betty, decreased breath sounds, unlabored, other - Tenderness to palpation over the right chest and right-sided back. Asymmetrical breathing. Decreased breath sounds on right lower lung.. ABSENT: rales, rhonchi, wheezes Cardiovascular exam: PRESENT: RRR. ABSENT: diastolic murmur, rubs, systolic murmur Pulses: PRESENT: normal dorsalis pedis pul Vascular exam: PRESENT: normal capillary refill GI/Abdominal exam: PRESENT: normal bowel sounds, soft. ABSENT: distended, guarding, mass, organolmegaly, rebound, tenderness Rectal exam: PRESENT: deferred Extremities exam: PRESENT: full ROM. ABSENT: calf tenderness, clubbing, pedal edema Neurological exam: PRESENT: alert, awake, oriented to person, oriented to place , oriented to time, oriented to situation, CN II-XII grossly intact. ABSENT: motor sensory deficit Psychiatric exam: PRESENT: appropriate affect, normal mood. ABSENT: homicidal ideation, suicidal ideation Skin exam: PRESENT: dry, intact, warm. ABSENT: cyanosis, rash Results Laboratory Results: 03/10/18 04:33 03/10/18 04:33 03/10/18 03/10/18 04:33 04:33 WBC 3.1 L RBC 2.90 L Hgb 8.6 L D Hct 24.9 L MCV 86 MCH 29.6 MCHC 34.4 RDW 17.6 H Plt Count 114 L Seg Neutrophils % Not Reportable Lymphocytes % Not Reportable Monocytes % Not Reportable Eosinophils % Not Reportable Basophils % Not Reportable Absolute Neutrophils Not Reportable Absolute Lymphocytes Not Reportable Absolute Monocytes Not Reportable Absolute Eosinophils Not Reportable Absolute Basophils Not Reportable Sodium 136.7 L Potassium 3.9 Chloride 103 Carbon Dioxide 29 Anion Gap 5 BUN 10 Creatinine 0.82 Est GFR ( Amer) > 60 Est GFR (Non-Af Amer) > 60 Glucose 98 Calcium 8.2 L Total Bilirubin 1.6 H AST 25 ALT 27 Alkaline Phosphatase 115 Total Protein 5.3 L Albumin 2.6 L 10/06/18 20:45 Sputum Gram Stain - Final 03/09/18 20:45 Sputum Sputum Culture - Final Impressions: Chest X-Ray 03/08/18 22:28 IMPRESSION: Right lower lobe pneumonia with mild right pleural effusion, similar to the prior study, new from prior studies from 03/22/2017. Assessment & Plan - Diagnosis (1) Pneumonia Qualifiers: Pneumonia type: due to unspecified organism Laterality: right Lung location: unspecified part of lung Qualified Code(s): J18.9 - Pneumonia, unspecified organism Is this a current diagnosis for this admission?: Yes Plan: Community versus hospital-acquired pneumonia. Patient has had several recent hospitalizations. IV cefepime to cover Staph, Strep, Pseudomonas and Klebsiella. Continue nebs and supplemental oxygen. Incentive spirometry and pulmonary toileting. Denies any history of smoking or COPD. (2) Anemia Is this a current diagnosis for this admission?: Yes Plan: Chronic anemia H&H stable. Patient has history of hemochromatosis. CBC tomorrow outpatient oncology follow-up. Patient also has history of AML for which she sees an oncologist as outpatient. (3) Chronic pain Is this a current diagnosis for this admission?: Yes (4) Fibromyalgia Is this a current diagnosis for this admission?: Yes Plan: Continue home medications. (5) Paroxysmal atrial fibrillation Is this a current diagnosis for this admission?: No Plan: Rate controlled. Continue Cardizem and Eliquis. (6) Acute myeloid leukemia Is this a current diagnosis for this admission?: Yes Plan: Patient has established outpatient oncologist follow-up. 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 Patient has an appointment with her store sales consultant in 2 weeks. Outpatient follow-up.
[2018-03-10] MEDS: ONDANSETRON 4 MG TAB.RAPDIS PO PRN (17:47)
[2018-03-10] MEDS ORDERED: PIPERACILLIN/TAZOBACTAM 3.375 GM VIAL IV ONE (20:52)
[2018-03-10] MEDS: IBUPROFEN 600 MG TABLET PO PRN (23:58)
[2018-03-11] MEDS: CEFEPIME 2 GM/D5W RTU 2 GM/50 ML RTUPB IV SCH ×2 (05:35→18:37)
[2018-03-11] MEDS: PROCHLORPERAZINE MALEATE 10 MG TABLET PO SCH ×3 (05:35→21:12)
[2018-03-11 06:05] LABS: HEMATOCRIT 26.3 % (36.0-47.0); HEMOGLOBIN 9.2 g/dL (12.0-15.5); MEAN CORPUSCULAR HEMOGLOBIN 29.6 pg (27.0-33.4); MEAN CORPUSCULAR HGB CONC 34.9 g/dL (32.0-36.0); MEAN CORPUSCULAR VOLUME 85 fl (80-97); PLATELET COUNT 129 10^3/uL (150-450); RED CELL DISTRIBUTION WIDTH 17.6 % (11.5-14.0); WHITE BLOOD COUNT 3.6 10^3/uL (4.0-10.5)
[2018-03-11 07:01] LABS: ALANINE AMINOTRANSFERASE 28 U/L (9-52); ALKALINE PHOSPHATASE 124 U/L (38-126); ANION GAP 9 (5-19); ASPARTATE AMINO TRANSFERASE 38 U/L (14-36); BILIRUBIN,DIRECT 0.6 mg/dL (0.0-0.4); BILIRUBIN,TOTAL 1.4 mg/dL (0.2-1.3); BLOOD UREA NITROGEN 7 mg/dL (7-20); CALCIUM 8.5 mg/dL (8.4-10.2); CARBON DIOXIDE 25 mmol/L (22-30); CHLORIDE 106 mmol/L (98-107); GLUCOSE 89 mg/dL (75-110); POTASSIUM 3.7 mmol/L (3.6-5.0); SODIUM 139.7 mmol/L (137-145); TOTAL PROTEIN 6.2 g/dL (6.3-8.2)
[2018-03-11 07:03] LABS: ABSOLUTE LYMPHOCYTES# (MANUAL) 1.9 10^3/uL (0.5-4.7); ABSOLUTE MONOCYTES # (MANUAL) 0.3 10^3/uL (0.1-1.4); ABSOLUTE NEUTROPHILS# (MANUAL) 1.3 10^3/uL (1.7-8.2); BASOPHILS % (MANUAL) 1 % (0-2); EOSINOPHILS % (MANUAL) 0 % (0-6); LYMPHOCYTES % (MANUAL) 54 % (13-45); MONOCYTES % (MANUAL) 9 % (3-13); SEGMENTED NEUTROPHILS % (MAN) 36 % (42-78); TOTAL CELLS COUNTED 100
[2018-03-11 07:06] LABS: ANISOCYTOSIS 1+
[2018-03-11 07:07] LABS: PLATELET CLUMPS PRESENT; PLATELET COMMENT DECREASED
[2018-03-11] MEDS: ATORVASTATIN CALCIUM 40 MG TABLET PO SCH (09:26)
[2018-03-11] MEDS: HYDROMORPHONE HCL 2 MG TABLET PO SCH ×3 (09:26→18:38)
[2018-03-11] MEDS: APIXABAN 5 MG TABLET PO SCH ×2 (09:26→18:38)
[2018-03-11] MEDS: ASPIRIN 81 MG TABLET, CHEWABLE PO SCH (09:26)
[2018-03-11] MEDS: OXYCODONE HCL IR 5 MG TABLET PO SCH ×2 (09:27→18:37)
--- NOTE | 2018-03-11 11:28 | PDOC CONSULTATION ---
Consultation Consult Date: 03/11/18 Attending physician:: AMBER JONES Consult reason:: Pleural effusion History of Present Illness Admission Date/PCP: 03/09/18 02:34 ZACH PRUITT MD History of Present Illness: KIRILL ESPARZA is a 77 year old female with multiple medical problems complained of shortness of breath and increasing inspiratory chest pain she was approximately 3 days status post discharge from hospital in [place] for new onset of atrial fibrillation she states that over the 3-day after she was discharged there she had increasing shortness of breath that is exacerbated by sharp inspiratory chest pain. She states she had a little cough productive of white phlegm no hemoptysis PPD negative dates unknown she denies having history of shortness of breath or dyspnea on exertion or to the onset of this event she does admit to having history of asthma as a child she admits to exposure large amounts of passive smoke as a child as well as an adult. She has never smoked. She uses primarily a homemaker and is unaware of being exposed to any chemicals or radiation asbestos or other potential respiratory problems toxins she has no pets and no recent travel she occasionally has tightness in her chest which is relieved by nebulized treatments sleeps on 2 pillows occasional PND occasional nocturnal cough she admits to snoring restless sleep nocturia 4- 6 times per night unrestful sleep and excessive daytime somnolence. Past Medical History Cardiac Medical History: Reports: Atrial Fibrillation - DX'd 03/2018 on Eliquis , Hyperlipidema Pulmonary Medical History: Reports: Asthma, Bronchitis, Pneumonia EENT Medical History: Reports: Cataracts - Early not yet operated on, Other Endocrine Medical History: Denies: Diabetes Mellitus Type 1, Gestational Diabetes Renal/ Medical History: Denies: Chronic Kidney Disease, End Stage Renal Disease Malignancy Medical History: Reports: Leukemia - AML GI Medical History: Reports: Gastroesophageal Reflux Disease Denies: Crohn's Disease, Ulcerative Colitis Musculoskeltal Medical History: Reports: Arthritis, Fibromyalgia, Other - Chronic pain Psychiatric Medical History: Traumatic Medical History: Denies: Gunshot Wound, Pneumothorax, Stab Wound, Traumatic Brain Injury Hematology: Reports: Anemia, Other Infectious Medical History: Denies: Clostridium Difficile, HIV Past Surgical History Past Surgical History: Reports: Appendectomy, Cholecystectomy, Hysterectomy, Orthopedic Surgery - L knee--torn meniscus, Tonsillectomy Social History Information Source: Patient, [facility] Records Smoking Status: Never Smoker Passive smoke exposure as: Both Frequency of Alcohol Use: None Hx Recreational Drug Use: No Hx Prescription Drug Abuse: No Do you have pets?: No Have you had any respiratory illnesses as a child?: Yes Have you been exposed to any sick contacts recently?: No Have you had any recent respiratory illnesses?: No Have you travelled outside of [place] in the past 12 months?: No Family History Family History: Arthritis, CAD, COPD, CVA, DM, Hyperlipidemia, Hypertension, Malignancy. denies: Thyroid Disfunction Parental Family History Reviewed: Yes Children Family History Reviewed: Yes Sibling(s) Family History Reviewed.: Yes Medication/Allergy Home Medications: Apixaban [Eliquis 5 mg Tablet] 5 mg PO Q12 03/09/18 Atorvastatin Calcium [Lipitor 40 mg Tablet] 40 mg PO DAILY 03/09/18 Diltiazem HCl [Diltiazem ER] 120 mg PO DAILY 03/09/18 Dronabinol [Marinol] 5 mg PO QHS 03/09/18 Duloxetine HCl [Cymbalta] 30 mg PO DAILY 03/09/18 Hydromorphone HCl [Dilaudid] 4 mg PO Q4HP PRN 03/09/18 Gabapentin [Neurontin 100 mg Capsule] 100 mg PO Q12 #60 capsule 03/14/18 Levofloxacin [Levaquin 750 mg Tablet] 750 mg PO DAILY #5 tablet 03/14/18 Prochlorperazine Maleate [Compazine 10 mg Tablet] 10 mg PO Q8 tablet 03/14/18 Sennosides/Docusate 8.6-50 mg [Senna Plus Tablet] 1 each PO BIDP PRN tablet 04/21 Allergies/Adverse Reactions: Iodinated Contrast- Oral and IV Dye [IV Dye, Iodine Containing] Allergy (Severe , Verified 03/06/18 16:48) Anaphylaxis Sulfa (Sulfonamide Antibiotics) Allergy (Severe, Verified 03/06/18 13:11) adhesive tape Allergy (Mild, Verified 03/09/18 04:05) Hives tetanus toxoid, adsorbed Allergy (Verified 03/06/18 13:11) Tetanus Vaccines and Toxoid [Tetanus] Allergy (Verified 03/06/18 13:11) nitrofurantoin macrocrystalline [From Macrobid] Adverse Reaction (Severe, Verified 03/06/18 13:11) Hives, breathing problems Review of Systems Constitutional: PRESENT: night sweats, weakness, weight loss. ABSENT: anorexia , chills, fatigue, fever(s), headache(s) Eyes: ABSENT: visual disturbances Ears: ABSENT: hearing changes Nose, Mouth, and Throat: ABSENT: mouth pain, sore throat Cardiovascular: PRESENT: dyspnea on exertion, orthropnea, palpitations Respiratory: ABSENT: hemoptysis Gastrointestinal: PRESENT: constipation, diarrhea, dysphagia, heartburn, melena , other - IBS. ABSENT: coffee ground emesis, hematemesis, hematochezia Genitourinary: PRESENT: nocturia. ABSENT: dysuria, hematuria Integumentary: ABSENT: lesions, pruritus Neurological: ABSENT: abnormal movements, abnormal speech, confusion, focal weakness Psychiatric: ABSENT: hallucinations, homidical ideation, suicidal ideation Endocrine: ABSENT: cold intolerance, heat intolerance, polydipsia, polyuria Hematologic/Lymphatic: PRESENT: easy bruising Allergic/Immunologic: ABSENT: seasonal rhinorrhea Physical Exam Vital Signs: Temp Pulse Resp BP Pulse Ox 97.7 F 87 16 108/48 L 97 03/11/18 08:00 03/11/18 08:47 03/11/18 08:47 03/11/18 08:00 03/11/18 08:47 Pulse Oximeter Continuous Start: 03/09/18 02: 18 Freq: RTQ4 Status: Active Document 03/11/18 08:47 TPO (Rec: 03/11/18 08:50 TPO [id number]) Pulse Oximetry Assessment Oxygen Saturation (92-100) 97 Oxygen Delivery Method Room Air Fraction of Inspired Oxygen (FIO2) 21 Equipment Usage Equipment in Use Continuous SpO2 Machine # 1 Intake & Output 03/10/18 03/11/18 03/12/18 06:59 06:59 06:59 Intake Total 984 3074 287 Output Total 9800 4805 Balance -1166 349 287 Weight 75.5 kg 78 kg General appearance: PRESENT: no acute distress, cooperative, disheveled, hard of hearing, well-developed, well-nourished Head exam: PRESENT: atraumatic, normocephalic Eye exam: PRESENT: conjunctiva pale, EOMI. ABSENT: nystagmus, scleral icterus Mouth exam: PRESENT: dry mucosa, neck supple, tongue midline Teeth exam: PRESENT: edentulous Neck exam: ABSENT: carotid bruit, JVD, lymphadenopathy, thyromegaly, tracheal deviation, tracheostomy Respiratory exam: PRESENT: chest wall tenderness, crackles - Right lateral and posterior chest wall, decreased breath sounds, prolonged expiratory phas, rhonchi, unlabored, wheezes. ABSENT: retraction, stridor, tachypnea Cardiovascular exam: PRESENT: irregular rhythm, +S1, +S2 Pulses: PRESENT: normal radial pulses GI/Abdominal exam: PRESENT: soft. ABSENT: tenderness Extremities exam: PRESENT: pedal edema. ABSENT: calf tenderness, clubbing, joint swelling Musculoskeletal exam: ABSENT: ambulatory, deformity, dislocation Neurological exam: PRESENT: alert, awake Psychiatric exam: PRESENT: anxious Skin exam: PRESENT: dry, warm Results Laboratory Results: 03/11/18 04:10 03/11/18 04:10 03/11/18 03/11/18 04:10 04:10 WBC 3.6 L RBC 3.10 L Hgb 9.2 L Hct 26.3 L MCV 85 MCH 29.6 MCHC 34.9 RDW 17.6 H Plt Count 129 L Seg Neutrophils % Not Reportable Lymphocytes % Not Reportable Monocytes % Not Reportable Eosinophils % Not Reportable Basophils % Not Reportable Absolute Neutrophils Not Reportable Absolute Lymphocytes Not Reportable Absolute Monocytes Not Reportable Absolute Eosinophils Not Reportable Absolute Basophils Not Reportable Sodium 139.7 Potassium 3.7 Chloride 106 Carbon Dioxide 25 Anion Gap 9 BUN 7 Creatinine 0.80 Est GFR ( Amer) > 60 Est GFR (Non-Af Amer) > 60 Glucose 89 Calcium 8.5 Total Bilirubin 1.4 H AST 38 H ALT 28 Alkaline Phosphatase 124 Total Protein 6.2 L Albumin 3.0 L 03/09/18 20:45 Sputum Gram Stain - Final 03/09/18 20:45 Sputum Sputum Culture - Final Impressions: Chest X-Ray 03/08/18 22:28 IMPRESSION: Right lower lobe pneumonia with mild right pleural effusion, similar to the prior study, new from prior studies from 03/22/2017. Assessment & Plan - Diagnosis (1) Pleural effusion, right Is this a current diagnosis for this admission?: Yes Plan: Check thoracentesis under ultrasound guidance by radiology will order labs and cultures (2) Fibromyalgia Is this a current diagnosis for this admission?: Yes (3) Healthcare-associated pneumonia Is this a current diagnosis for this admission?: Yes Plan: This patient was admitted 4 days after being discharged from a hospitalization would have to consider any pneumonitis to be hospital-acquired (4) Acute myeloid leukemia Is this a current diagnosis for this admission?: Yes Plan: As per oncology
[2018-03-11] MEDS: DILTIAZEM HCL 120 MG CAP.SR.24H PO SCH (12:32)
[2018-03-11] MEDS: NORMAL SALINE 1000 ML 1,000 ML IV PRN (13:04)
--- NOTE | 2018-03-11 15:12 | PDOC PROGRESS REPORT ---
Subjective Progress Note for:: 03/11/18 Subjective:: 77-year-old female GERD, arthritis, fibromyalgia, chronic pain, anemia, hemochromatosis, AML, pneumonia and recently diagnosed atrial fibrillation on . Patient was admitted in [facility] on 03/06/2018 and was diagnosed with right middle lobe pneumonia but patient left the hospital for an important appointment with her grinder chipper. Patient was admitted to [facility] last week from to Sunday was diagnosed with atrial fibrillation and started on Eliquis and Cardizem. She was diagnosed with possible hospital-acquired pneumonia and was started on cefepime IV. A chest x- ray confirmed right lower lobe pneumonia and persistent effusion. Troponins were negative and EKG did not show any acute abnormalities. 03/10/2018. No acute events overnight. Upon my encounter patient was sitting in the bed not in any acute distress very pleasant and cooperative with physical examination. When asked how her night was she said it was okay but she could not get a good night sleep because of right-sided persistent pleuritic chest pain. She is asking when she can go home. Denies any fever, chills, nausea, vomiting, diarrhea, shortness of breath, constipation or any urinary symptoms. Endorses right-sided pleuritic chest pain and right-sided back pain. 03/11/2018. No acute events overnight. On my encounter patient is sleeping in her bed very pleasant and cooperating with physical examination. She states her chest pain has much improved today and she had a good night sleep. She is p.o. tolerant and denies any fever, chills, nausea, vomiting, diarrhea, constipation or any urinary symptoms. She was seen by Dr. Ferrer today and a thoracentesis has been scheduled by him. Reason For Visit: [facility] Physical Exam Vital Signs: Temp Pulse Resp BP Pulse Ox 98.3 F 89 14 99/48 L 91 L 03/11/18 11:57 03/11/18 14:00 03/11/18 11:57 03/11/18 11:57 03/11/18 11:57 Pulse Oximeter Continuous Start: 03/09/18 02: 18 Freq: RTQ4 Status: Active Document 03/11/18 11:20 TPO (Rec: 03/11/18 11:20 TPO [id number]) Pulse Oximetry Assessment Oxygen Saturation (92-100) 97 Oxygen Delivery Method Room Air Fraction of Inspired Oxygen (FIO2) 21 Equipment Usage Equipment in Use Continuous SpO2 Machine # 1 Intake & Output 03/10/18 03/11/18 03/12/18 06:59 06:59 06:59 Intake Total 984 3074 1287 Output Total 2150 1295 Balance -7191 730 1355 Weight 75.5 kg 78 kg General appearance: PRESENT: no acute distress, well-developed, well-nourished Head exam: PRESENT: atraumatic, normocephalic Eye exam: PRESENT: conjunctiva pink, EOMI, PERRLA. ABSENT: scleral icterus Ear exam: PRESENT: normal external ear exam Mouth exam: PRESENT: moist, tongue midline Neck exam: ABSENT: carotid bruit, JVD, lymphadenopathy, thyromegaly Respiratory exam: PRESENT: clear to auscultation betty, decreased breath sounds - Right lower lobe decreased breath sounds. Back tenderness is improved.. ABSENT : rales, rhonchi, wheezes Cardiovascular exam: PRESENT: RRR. ABSENT: diastolic murmur, rubs, systolic murmur Pulses: PRESENT: normal dorsalis pedis pul Vascular exam: PRESENT: normal capillary refill GI/Abdominal exam: PRESENT: normal bowel sounds, soft. ABSENT: distended, guarding, mass, organolmegaly, rebound, tenderness Rectal exam: PRESENT: deferred Extremities exam: PRESENT: full ROM. ABSENT: calf tenderness, clubbing, pedal edema Neurological exam: PRESENT: alert, awake, oriented to person, oriented to place , oriented to time, oriented to situation, CN II-XII grossly intact. ABSENT: motor sensory deficit Psychiatric exam: PRESENT: appropriate affect, normal mood. ABSENT: homicidal ideation, suicidal ideation Skin exam: PRESENT: dry, intact, warm. ABSENT: cyanosis, rash Results Laboratory Results: 03/11/18 04:10 03/11/18 04:10 03/11/18 03/11/18 04:10 04:10 WBC 3.6 L RBC 3.10 L Hgb 9.2 L Hct 26.3 L MCV 85 MCH 29.6 MCHC 34.9 RDW 17.6 H Plt Count 129 L Seg Neutrophils % Not Reportable Lymphocytes % Not Reportable Monocytes % Not Reportable Eosinophils % Not Reportable Basophils % Not Reportable Absolute Neutrophils Not Reportable Absolute Lymphocytes Not Reportable Absolute Monocytes Not Reportable Absolute Eosinophils Not Reportable Absolute Basophils Not Reportable Sodium 139.7 Potassium 3.7 Chloride 106 Carbon Dioxide 25 Anion Gap 9 BUN 7 Creatinine 0.80 Est GFR ( Amer) > 60 Est GFR (Non-Af Amer) > 60 Glucose 89 Calcium 8.5 Total Bilirubin 1.4 H AST 38 H ALT 28 Alkaline Phosphatase 124 Total Protein 6.2 L Albumin 3.0 L Impressions: Chest X-Ray 03/08/18 22:28 IMPRESSION: Right lower lobe pneumonia with mild right pleural effusion, similar to the prior study, new from prior studies from 03/22/2017. Assessment & Plan - Diagnosis (1) Pneumonia Qualifiers: Pneumonia type: due to unspecified organism Laterality: right Lung location: unspecified part of lung Qualified Code(s): J18.9 - Pneumonia, unspecified organism Is this a current diagnosis for this admission?: Yes Plan: Community versus hospital-acquired pneumonia. Patient has had several recent hospitalizations. IV cefepime to cover Staph, Strep, Pseudomonas and Klebsiella. Continue nebs and supplemental oxygen. Incentive spirometry and pulmonary toileting. Denies any history of smoking or COPD. Pulmonology on board. Plan is to do a thoracentesis guided by ultrasound by pulmonology. Follow-up cultures. (2) Anemia Is this a current diagnosis for this admission?: Yes Plan: Chronic anemia H&H stable. Patient has history of hemochromatosis and has appointment with her sales consulting director end of this week.. CBC tomorrow outpatient oncology follow-up. Patient also has history of AML for which she sees an oncologist as outpatient. (3) Chronic pain Is this a current diagnosis for this admission?: Yes Plan: History of fibromyalgia. Pain management. Patient may benefit from Cymbalta. (4) Fibromyalgia Is this a current diagnosis for this admission?: Yes Plan: Continue home medications. (5) Paroxysmal atrial fibrillation Is this a current diagnosis for this admission?: No Plan: Rate controlled. Continue Cardizem and Eliquis. (6) Acute myeloid leukemia Is this a current diagnosis for this admission?: Yes Plan: Patient has established outpatient oncologist follow-up. Currently on remission as per patient. 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 Patient has an appointment with her sales consulting director in this week. Outpatient follow-up.
[2018-03-12 05:58] LABS: HEMATOCRIT 24.7 % (36.0-47.0); HEMOGLOBIN 8.8 g/dL (12.0-15.5); MEAN CORPUSCULAR HEMOGLOBIN 30.2 pg (27.0-33.4); MEAN CORPUSCULAR HGB CONC 35.4 g/dL (32.0-36.0); MEAN CORPUSCULAR VOLUME 85 fl (80-97); PLATELET COUNT 124 10^3/uL (150-450); RED CELL DISTRIBUTION WIDTH 17.7 % (11.5-14.0); WHITE BLOOD COUNT 3.7 10^3/uL (4.0-10.5)
[2018-03-12 06:16] LABS: ALANINE AMINOTRANSFERASE 27 U/L (9-52); ALBUMIN 2.8 g/dL (3.5-5.0); ALKALINE PHOSPHATASE 108 U/L (38-126); ASPARTATE AMINO TRANSFERASE 24 U/L (14-36); BILIRUBIN,DIRECT 0.6 mg/dL (0.0-0.4); BILIRUBIN,TOTAL 1.2 mg/dL (0.2-1.3); BLOOD UREA NITROGEN 7 mg/dL (7-20); CALCIUM 8.6 mg/dL (8.4-10.2); GLUCOSE 93 mg/dL (75-110); TOTAL PROTEIN 5.5 g/dL (6.3-8.2)
[2018-03-12] MEDS: PROCHLORPERAZINE MALEATE 10 MG TABLET PO SCH ×3 (06:16→22:12)
[2018-03-12] MEDS: CEFEPIME 2 GM/D5W RTU 2 GM/50 ML RTUPB IV SCH ×2 (06:16→17:15)
[2018-03-12] MEDS: NORMAL SALINE 1000 ML 1,000 ML IV PRN ×2 (06:17→22:13)
[2018-03-12 06:22] LABS: CARBON DIOXIDE 27 mmol/L (22-30); CHLORIDE 107 mmol/L (98-107); SODIUM 137.7 mmol/L (137-145)
[2018-03-12 06:25] LABS: ABSOLUTE LYMPHOCYTES# (MANUAL) 1.8 10^3/uL (0.5-4.7); ABSOLUTE MONOCYTES # (MANUAL) 0.7 10^3/uL (0.1-1.4); ABSOLUTE NEUTROPHILS# (MANUAL) 1.3 10^3/uL (1.7-8.2); BASOPHILS % (MANUAL) 0 % (0-2); EOSINOPHILS % (MANUAL) 0 % (0-6); LYMPHOCYTES % (MANUAL) 48 % (13-45); MONOCYTES % (MANUAL) 18 % (3-13); SEGMENTED NEUTROPHILS % (MAN) 34 % (42-78); TOTAL CELLS COUNTED 100
[2018-03-12 06:27] LABS: ANION GAP 4 (5-19)
[2018-03-12 06:33] LABS: ANISOCYTOSIS 2+; HYPOCHROMASIA SLIGHT; PLATELET COMMENT DECREASED; ROULEAUX SLIGHT
[2018-03-12] MEDS: ASPIRIN 81 MG TABLET, CHEWABLE PO SCH (10:03)
[2018-03-12] MEDS: DILTIAZEM HCL 120 MG CAP.SR.24H PO SCH (10:03)
[2018-03-12] MEDS: OXYCODONE HCL IR 5 MG TABLET PO SCH ×3 (10:03→17:41)
[2018-03-12] MEDS: ATORVASTATIN CALCIUM 40 MG TABLET PO SCH (10:04)
[2018-03-12] MEDS: HYDROMORPHONE HCL 2 MG TABLET PO SCH (10:04)
[2018-03-12] MEDS: APIXABAN 5 MG TABLET PO SCH (10:06)
[2018-03-12 11:02] LABS: INTERNATIONAL RATION (INR) 1.36; PROTHROMBIN TIME 17.5 SEC (11.4-15.4)
[2018-03-12 11:03] LABS: PARTIAL THROMBOPLASTIN TIME 38.6 SEC (23.5-35.8)
[2018-03-12 11:09] LABS: TOTAL PROTEIN 5.4 g/dL (6.3-8.2)
--- NOTE | 2018-03-12 14:17 | PDOC PROGRESS REPORT ---
Subjective Progress Note for:: 03/12/18 Subjective:: Still complains of inspiratory chest pain Reason For Visit: HAP Physical Exam Vital Signs: Temp Pulse Resp BP Pulse Ox 98.2 F 95 16 106/57 L 99 03/12/18 11:36 03/12/18 11:36 03/12/18 11:36 03/12/18 11:36 03/12/18 12:32 Pulse Oximeter Continuous Start: 03/09/18 02: 18 Freq: RTQ4 Status: Active Document 03/12/18 12:32 TPO (Rec: 03/12/18 12:32 TPO [email or web address]) Pulse Oximetry Assessment Oxygen Saturation (92-100) 99 Oxygen Flow Rate (L/min) 2 Oxygen Delivery Method Nasal Cannula Fraction of Inspired Oxygen (FIO2) 28 Equipment Usage Equipment in Use Continuous SpO2 Machine # 1 Intake & Output 03/11/18 03/12/18 03/13/18 06:59 06:59 06:59 Intake Total 1322 Output Total 1300 Balance 22 Weight 76.9 kg General appearance: PRESENT: no acute distress, cooperative, disheveled Head exam: PRESENT: atraumatic, normocephalic Eye exam: PRESENT: conjunctiva pale, EOMI. ABSENT: nystagmus, scleral icterus Mouth exam: PRESENT: dry mucosa, neck supple, tongue midline Teeth exam: PRESENT: poor dentation Neck exam: ABSENT: carotid bruit, JVD, lymphadenopathy, thyromegaly, tracheal deviation, tracheostomy Respiratory exam: PRESENT: chest wall tenderness, crackles - Right lateral and posterior chest wall, decreased breath sounds, prolonged expiratory phas, rales , rhonchi, unlabored. ABSENT: retraction, stridor Cardiovascular exam: PRESENT: RRR, +S1, +S2 Pulses: PRESENT: normal radial pulses GI/Abdominal exam: PRESENT: soft. ABSENT: tenderness Extremities exam: ABSENT: calf tenderness, clubbing, joint swelling Musculoskeletal exam: ABSENT: deformity, dislocation Neurological exam: PRESENT: awake Psychiatric exam: PRESENT: flat affect Skin exam: PRESENT: dry, warm Results Laboratory Results: 03/12/18 04:54 03/12/18 04:54 03/12/18 03/12/18 03/12/18 04:54 04:54 10:11 WBC 3.7 L RBC 2.90 L Hgb 8.8 L Hct 24.7 L MCV 85 MCH 30.2 MCHC 35.4 RDW 17.7 H Plt Count 124 L Seg Neutrophils % Not Reportable Lymphocytes % Not Reportable Monocytes % Not Reportable Eosinophils % Not Reportable Basophils % Not Reportable Absolute Neutrophils Not Reportable Absolute Lymphocytes Not Reportable Absolute Monocytes Not Reportable Absolute Eosinophils Not Reportable Absolute Basophils Not Reportable Sodium 137.7 Potassium 4.0 Chloride 107 Carbon Dioxide 27 Anion Gap 4 L BUN 7 Creatinine 0.70 Est GFR ( Amer) > 60 Est GFR (Non-Af Amer) > 60 Glucose 93 Calcium 8.6 Total Bilirubin 1.2 AST 24 ALT 27 Alkaline Phosphatase 108 Total Protein 5.5 L 5.4 L Albumin 2.8 L Impressions: Chest X-Ray 03/08/18 22:28 IMPRESSION: Right lower lobe pneumonia with mild right pleural effusion, similar to the prior study, new from prior studies from 03/22/2017. Assessment & Plan - Diagnosis (1) Pleural effusion, right Is this a current diagnosis for this admission?: Yes Plan: Hopefully thoracentesis today (2) Fibromyalgia Is this a current diagnosis for this admission?: Yes (3) Healthcare-associated pneumonia Is this a current diagnosis for this admission?: Yes Plan: This patient was admitted 4 days after being discharged from a hospitalization would have to consider any pneumonitis to be hospital-acquired (4) Acute myeloid leukemia Is this a current diagnosis for this admission?: Yes Plan: As per oncology
[2018-03-12] MEDS ORDERED: HEPARIN SODIUM,PORCINE/D5W 25,000 UNIT/250 ML RTUINJ IV PRN (15:21)
[2018-03-12] MEDS ORDERED: SENNOSIDES/DOCUSATE 8.6-50 MG 1 EACH TABLET PO PRN (15:32)
--- NOTE | 2018-03-12 15:35 | PDOC PROGRESS REPORT ---
Subjective Progress Note for:: 03/12/18 Subjective:: Assumed care today. Ms. Kingsley is a 77 yr old female with a PMH of GERD, arthritis, fibromyalgia, chronic pain, anemia, hemochromatosis, AML, and atrial fibrillation on Eliquis who presented with pleuritic right-sided chest pain and was found to have a right-sided pneumonia with effusion. 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 Pulmonology has been consulted and has recommended thoracentesis. Patient was supposed to go for thoracentesis today. Unfortunately, she was given a dose of Eliquis last night around 6:30 PM hence thoracentesis will be rescheduled. Patient denies acute complaint. She currently denies shortness of breath or chest pain. No fever or chills. She is currently saturating well on room air. She is tolerating diet well. Reason For Visit: [facility] Physical Exam Vital Signs: Temp Pulse Resp BP Pulse Ox 98.2 F 95 16 106/57 L 99 03/12/18 11:36 03/12/18 11:36 03/12/18 11:36 03/12/18 11:36 03/12/18 12:32 Pulse Oximeter Continuous Start: 03/09/18 02: 18 Freq: RTQ4 Status: Active Document 03/12/18 12:32 TPO (Rec: 03/12/18 12:32 TPO [email or web address]) Pulse Oximetry Assessment Oxygen Saturation (92-100) 99 Oxygen Flow Rate (L/min) 2 Oxygen Delivery Method Nasal Cannula Fraction of Inspired Oxygen (FIO2) 28 Equipment Usage Equipment in Use Continuous SpO2 Machine # 1 Intake & Output 03/11/18 03/12/18 03/13/18 06:59 06:59 06:59 Intake Total 1322 Output Total 1300 Balance 22 Weight 169 lb 8.568 oz General appearance: PRESENT: no acute distress, well-developed, well-nourished Head exam: PRESENT: atraumatic, normocephalic Eye exam: PRESENT: conjunctiva pink, EOMI, PERRLA. ABSENT: scleral icterus Ear exam: PRESENT: normal external ear exam Neck exam: ABSENT: carotid bruit, JVD, lymphadenopathy, thyromegaly Respiratory exam: PRESENT: clear to auscultation betty, decreased breath sounds - On the right base. ABSENT: rales, rhonchi, wheezes Cardiovascular exam: PRESENT: RRR. ABSENT: diastolic murmur, rubs, systolic murmur Pulses: PRESENT: normal dorsalis pedis pul GI/Abdominal exam: PRESENT: normal bowel sounds, soft. ABSENT: distended, guarding, mass, organolmegaly, rebound, tenderness Rectal exam: PRESENT: deferred Neurological exam: PRESENT: alert, awake, oriented to person, oriented to place , oriented to time, oriented to situation, CN II-XII grossly intact. ABSENT: motor sensory deficit Results Laboratory Results: 03/12/18 04:54 03/12/18 04:54 03/12/18 03/12/18 03/12/18 04:54 04:54 10:11 WBC 3.7 L RBC 2.90 L Hgb 8.8 L Hct 24.7 L MCV 85 MCH 30.2 MCHC 35.4 RDW 17.7 H Plt Count 124 L Seg Neutrophils % Not Reportable Lymphocytes % Not Reportable Monocytes % Not Reportable Eosinophils % Not Reportable Basophils % Not Reportable Absolute Neutrophils Not Reportable Absolute Lymphocytes Not Reportable Absolute Monocytes Not Reportable Absolute Eosinophils Not Reportable Absolute Basophils Not Reportable Sodium 137.7 Potassium 4.0 Chloride 107 Carbon Dioxide 27 Anion Gap 4 L BUN 7 Creatinine 0.70 Est GFR ( Amer) > 60 Est GFR (Non-Af Amer) > 60 Glucose 93 Calcium 8.6 Total Bilirubin 1.2 AST 24 ALT 27 Alkaline Phosphatase 108 Total Protein 5.5 L 5.4 L Albumin 2.8 L Impressions: Chest X-Ray 03/08/18 22:28 IMPRESSION: Right lower lobe pneumonia with mild right pleural effusion, similar to the prior study, new from prior studies from 03/22/2017. Assessment & Plan - Diagnosis (1) Healthcare-associated pneumonia Is this a current diagnosis for this admission?: Yes Plan: Checks x-ray shows right lower lobe pneumonia with right-sided pleural effusion. Currently on cefepime. Pulmonology following. Patient's thoracentesis was canceled today as patient received a dose of Eliquis last night. (2) Paroxysmal atrial fibrillation Is this a current diagnosis for this admission?: Yes Plan: Patient is currently in sinus rhythm. Eliquis is on hold for thoracentesis. Will switch patient to heparin drip which will be held 6-8 hours before the procedure. (3) Chronic pain Is this a current diagnosis for this admission?: Yes Plan: Patient is currently on cocci IR and p.o. Dilaudid. On further questioning where patient is not to operate, she said that she was on significant pain for years back hence was started on these medications. Her pain is very well controlled. She complains of chronic generalized back tenderness very consistent with fibromyalgia. She does complain of constipation. Discussed in length with patient and patient's about the need to wean patient off the opiates. They are amenable to plan. Continue Dilaudid as prn. Disconitnue Oxy-IR. Will add Neurontin. - Time Time Spent with patient: 25-34 minutes
[2018-03-12 16:43] LABS: INTERNATIONAL RATION (INR) 1.26; PROTHROMBIN TIME 16.4 SEC (11.4-15.4)
[2018-03-12 16:44] LABS: PARTIAL THROMBOPLASTIN TIME 37.9 SEC (23.5-35.8)
[2018-03-12] MEDS ORDERED: HEPARIN SOD (PORCINE) 1,000 UNIT/ML 10 ML VIAL IV PRN (18:21)
[2018-03-12 18:27] LABS: APPEARANCE,URINE CLEAR; BILIRUBIN,URINE NEGATIVE (NEGATIVE); COLOR,URINE STRAW; GLUCOSE, URINE NEGATIVE (NEGATIVE); KETONES,URINE NEGATIVE (NEGATIVE); LEUKOCYTE ESTERASE,URINE NEGATIVE (NEGATIVE); NITRITE,URINE NEGATIVE (NEGATIVE); PROTEIN,URINE NEGATIVE (NEGATIVE); UROBILINOGEN,URINE NEGATIVE mg/dL (<2.0)
[2018-03-12 18:28] LABS: URINE SPECIFIC GRAVITY 1.006
[2018-03-12] MEDS: GABAPENTIN 100 MG CAPSULE PO SCH (22:12)
[2018-03-13] MEDS: HYDROMORPHONE HCL 2 MG TABLET PO PRN ×2 (02:06→17:50)
[2018-03-13] MEDS: CEFEPIME 2 GM/D5W RTU 2 GM/50 ML RTUPB IV SCH (05:54)
[2018-03-13] MEDS: PROCHLORPERAZINE MALEATE 10 MG TABLET PO SCH ×3 (05:54→21:37)
[2018-03-13 06:43] LABS: HEMATOCRIT 23.6 % (36.0-47.0); HEMOGLOBIN 8.2 g/dL (12.0-15.5); MEAN CORPUSCULAR HEMOGLOBIN 29.7 pg (27.0-33.4); MEAN CORPUSCULAR HGB CONC 34.8 g/dL (32.0-36.0); MEAN CORPUSCULAR VOLUME 85 fl (80-97); PLATELET COUNT 107 10^3/uL (150-450); RED BLOOD COUNT 2.77 10^6/uL (3.72-5.28); RED CELL DISTRIBUTION WIDTH 17.5 % (11.5-14.0); WHITE BLOOD COUNT 3.2 10^3/uL (4.0-10.5)
--- NOTE | 2018-03-13 08:59 | RADIOLOGY REPORT (SQ) ---
EXAM DESCRIPTION: CHEST SINGLE VIEW COMPLETED DATE/TIME: 03/13/2018 8:39 am REASON FOR STUDY: reassess pleural effusion COMPARISON: AP chest 03/08/2018, 03/06/2018, 03/22/2017 CT chest 03/06/2018 EXAM PARAMETERS: NUMBER OF VIEWS: One view. TECHNIQUE: Single frontal radiographic view of the chest acquired. RADIATION DOSE: NA LIMITATIONS: None. FINDINGS: LUNGS AND PLEURA: There is persistent consolidation in the right lower lobe with persisten t trace right pleural effusion. This is unchanged from 03/08/2018 and 03/06/2018. Left lung well inflated and clear. No left pleural effusion or pneumothorax. MEDIASTINUM AND HILAR STRUCTURES: No masses. Contour normal. HEART AND VASCULAR STRUCTURES: Borderline cardiomegaly BONES: No acute findings. HARDWARE: None in the chest. OTHER: No other significant finding. IMPRESSION: Persistent right lower lobe airspace disease with right pleural fluid/ pleural thickenin g, similar compared to 03/08/2018 and 03/06/2018 TECHNICAL DOCUMENTATION: JOB ID: [id number] [employer] - [employer]- All Rights Reserved Reading location - IP/workstation name: [facility]
[2018-03-13] MEDS ORDERED: ONDANSETRON 4 MG TAB.RAPDIS PO PRN (10:30)
[2018-03-13] MEDS: NORMAL SALINE 1000 ML 1,000 ML IV PRN (11:54)
[2018-03-13] MEDS: GABAPENTIN 100 MG CAPSULE PO SCH ×2 (11:54→21:37)
[2018-03-13] MEDS: ATORVASTATIN CALCIUM 40 MG TABLET PO SCH (11:54)
[2018-03-13] MEDS: DILTIAZEM HCL 120 MG CAP.SR.24H PO SCH (11:55)
--- NOTE | 2018-03-13 14:07 | PDOC PROGRESS REPORT ---
Subjective Progress Note for:: 03/13/18 Subjective:: Ms. Kingsley is a 77 yr old female with a PMH of GERD, arthritis, fibromyalgia, chronic pain, anemia, hemochromatosis, AML, and atrial fibrillation on Eliquis who presented with pleuritic right-sided chest pain and was found to have a right-sided pneumonia with effusion. 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 Patient still awaiting for thoracentesis likely tomorrow as she received a dose of Eliquis the other night. No acute event overnight. Patient denies acute complaint. Denies shortness of breath or chest pain. No fever or chills. She is currently saturating well on room air. She is tolerating diet well. She has not had a BM yet. She has history of chronic constipation. Per patient's , she had this problem even before she was started on opioids and appeared to have worsened after being on opiates. She takes methylnaltrexone at home. Per patient's son, her constipation only responds to methylnaltrexone. Reason For Visit: HAP Physical Exam Vital Signs: Temp Pulse Resp BP Pulse Ox 98.5 F 86 14 127/59 H 95 03/13/18 03:36 03/13/18 07:00 03/13/18 03:36 03/13/18 03:36 03/13/18 12:00 Pulse Oximeter Continuous Start: 03/09/18 02: 18 Freq: RTQ4 Status: Active Document 03/13/18 12:00 HCR (Rec: 03/13/18 13:45 HCR [email or web address]) Pulse Oximetry Assessment Oxygen Saturation (92-100) 95 Oxygen Delivery Method Room Air Fraction of Inspired Oxygen (FIO2) 21 Equipment Usage Equipment in Use Continuous SpO2 Machine # 1 Intake & Output 03/12/18 03/13/18 03/14/18 06:59 06:59 06:59 Intake Total 1322 1892 1000 Output Total 9997 4525 Balance 22 -6893 1000 Weight 169 lb 8.568 oz 170 lb 3.15 oz General appearance: PRESENT: no acute distress, well-developed, well-nourished Head exam: PRESENT: atraumatic, normocephalic Eye exam: PRESENT: conjunctiva pink, EOMI, PERRLA. ABSENT: scleral icterus Ear exam: PRESENT: normal external ear exam Mouth exam: PRESENT: moist, tongue midline Neck exam: ABSENT: carotid bruit, JVD, lymphadenopathy, thyromegaly Respiratory exam: PRESENT: clear to auscultation betty, decreased breath sounds - slightly decreased breath sounds on the right base. ABSENT: rales, rhonchi, wheezes Cardiovascular exam: PRESENT: RRR. ABSENT: diastolic murmur, rubs, systolic murmur Pulses: PRESENT: normal dorsalis pedis pul GI/Abdominal exam: PRESENT: normal bowel sounds, soft. ABSENT: distended, guarding, mass, organolmegaly, rebound, tenderness Rectal exam: PRESENT: deferred Extremities exam: PRESENT: full ROM. ABSENT: calf tenderness, clubbing, pedal edema Neurological exam: PRESENT: alert, awake, oriented to person, oriented to place , oriented to time, oriented to situation, CN II-XII grossly intact. ABSENT: motor sensory deficit Results Laboratory Results: 03/13/18 05:51 03/12/18 04:54 03/12/18 03/13/18 17:56 05:51 WBC 3.2 L RBC 2.77 L Hgb 8.2 L Hct 23.6 L MCV 85 MCH 29.7 MCHC 34.8 RDW 17.5 H Plt Count 107 L Urine Color STRAW Urine Appearance CLEAR Urine pH 6.0 Ur Specific [place] 1.006 Urine Protein NEGATIVE Urine Glucose (UA) NEGATIVE Urine Ketones NEGATIVE Urine Blood SMALL H Urine Nitrite NEGATIVE Ur Leukocyte Esterase NEGATIVE Urine WBC (Auto) 22 Urine RBC (Auto) 2 Impressions: Chest X-Ray 03/13/18 07:00 IMPRESSION: Persistent right lower lobe airspace disease with right pleural fluid/ pleural thickening, similar compared to 03/08/2018 and 03/06/2018 Assessment & Plan - Diagnosis (1) Healthcare-associated pneumonia Is this a current diagnosis for this admission?: Yes Plan: Checks x-ray shows right lower lobe pneumonia with right-sided pleural effusion. Discontinue cefepime. Switch to PO Levaquin. Pulmonology following. Patient's thoracentesis was canceled today as patient received a dose of Eliquis last night. (2) Paroxysmal atrial fibrillation Is this a current diagnosis for this admission?: Yes Plan: Patient is currently in sinus rhythm. Eliquis is on hold for thoracentesis. Continue heparin drip to be held 6-8 hours before the procedure. (3) Chronic pain Is this a current diagnosis for this admission?: Yes Plan: On further questioning why she is on a lot of opiates, she said that she was in significant pain a few years back hence was started on these medications. Her pain is very well controlled. She complains of chronic generalized back tenderness very consistent with fibromyalgia. She does complain of constipation. Discussed in length with patient and patient's about the need to wean patient off the opiates. PO Dilaudid switched to prn. Oxycodone discontinued. Neurontin was also added. Patient has tolerated well being off oxycodone. - Time Time Spent with patient: 15-24 minutes
[2018-03-13] MEDS: APIXABAN 5 MG TABLET PO SCH (21:37)
[2018-03-14] MEDS: NORMAL SALINE 1000 ML 1,000 ML IV PRN (04:48)
[2018-03-14] MEDS: HYDROMORPHONE HCL 2 MG TABLET PO PRN (04:48)
[2018-03-14] MEDS: PROCHLORPERAZINE MALEATE 10 MG TABLET PO SCH (06:20)
[2018-03-14] MEDS: GABAPENTIN 100 MG CAPSULE PO SCH (09:05)
[2018-03-14] MEDS: ATORVASTATIN CALCIUM 40 MG TABLET PO SCH (09:06)
[2018-03-14] MEDS: APIXABAN 5 MG TABLET PO SCH (09:06)
[2018-03-14] MEDS: DILTIAZEM HCL 120 MG CAP.SR.24H PO SCH (09:06)
[2018-03-14 09:49] VITALS: BP 120/56
[2018-03-14] MEDS ORDERED: LEVOFLOXACIN 750 MG TABLET PO SCH (10:00)
--- NOTE | 2018-03-14 14:44 | PDOC PROGRESS REPORT ---
Subjective Progress Note for:: 03/13/18 Subjective:: Still complains of inspiratory chest pain Reason For Visit: [facility]AP Physical Exam Vital Signs: Temp Pulse Resp BP Pulse Ox 98.5 F 86 14 127/59 H 95 03/13/18 03:36 03/13/18 07:00 03/13/18 03:36 03/13/18 03:36 03/13/18 12:00 Pulse Oximeter Continuous Start: 03/09/18 02: 18 Freq: RTQ4 Status: Active Document 03/13/18 12:00 HCR (Rec: 03/13/18 13:45 HCR [email or web address]) Pulse Oximetry Assessment Oxygen Saturation (92-100) 95 Oxygen Delivery Method Room Air Fraction of Inspired Oxygen (FIO2) 21 Equipment Usage Equipment in Use Continuous SpO2 Machine # 1 Intake & Output 03/12/18 03/13/18 03/14/18 06:59 06:59 06:59 Intake Total 1322 1892 1000 Output Total 1300 4525 Balance 22 -2633 1000 Weight 76.9 kg 77.2 kg General appearance: PRESENT: no acute distress, cooperative, disheveled Head exam: PRESENT: atraumatic, normocephalic Eye exam: PRESENT: conjunctiva pale, EOMI. ABSENT: nystagmus, periorbital swelling, scleral icterus Mouth exam: PRESENT: moist, neck supple, tongue midline Neck exam: ABSENT: carotid bruit, JVD, lymphadenopathy, thyromegaly, tracheal deviation, tracheostomy Respiratory exam: PRESENT: crackles - Right posterior lateral chest wall, decreased breath sounds, prolonged expiratory phas, rhonchi, symmetrical, unlabored. ABSENT: rales, retraction, stridor, tachypnea Cardiovascular exam: PRESENT: RRR, +S1, +S2 Pulses: PRESENT: normal radial pulses GI/Abdominal exam: PRESENT: soft. ABSENT: tenderness Extremities exam: ABSENT: calf tenderness, clubbing, full ROM, joint swelling Musculoskeletal exam: ABSENT: deformity, dislocation Neurological exam: PRESENT: alert, awake Psychiatric exam: PRESENT: normal mood Skin exam: PRESENT: erythema, warm Results Laboratory Results: 03/13/18 05:51 03/12/18 04:54 03/12/18 03/13/18 17:56 05:51 WBC 3.2 L RBC 2.77 L Hgb 8.2 L Hct 23.6 L MCV 85 MCH 29.7 MCHC 34.8 RDW 17.5 H Plt Count 107 L Urine Color STRAW Urine Appearance CLEAR Urine pH 6.0 Ur Specific [place] 1.006 Urine Protein NEGATIVE Urine Glucose (UA) NEGATIVE Urine Ketones NEGATIVE Urine Blood SMALL H Urine Nitrite NEGATIVE Ur Leukocyte Esterase NEGATIVE Urine WBC (Auto) 22 Urine RBC (Auto) 2 Impressions: Chest X-Ray 03/13/18 07:00 IMPRESSION: Persistent right lower lobe airspace disease with right pleural fluid/ pleural thickening, similar compared to 03/08/2018 and 03/06/2018 Assessment & Plan - Diagnosis (1) Pleural effusion, right Is this a current diagnosis for this admission?: Yes Plan: Hopefully thoracentesis today (2) Fibromyalgia Is this a current diagnosis for this admission?: Yes (3) Healthcare-associated pneumonia Is this a current diagnosis for this admission?: Yes Plan: This patient was admitted 4 days after being discharged from a hospitalization would have to consider any pneumonitis to be hospital-acquired (4) Acute myeloid leukemia Is this a current diagnosis for this admission?: Yes Plan: As per oncology
--- NOTE | 2018-03-14 14:46 | PDOC PROGRESS REPORT ---
Subjective Progress Note for:: 03/14/18 Subjective:: Patient and family have elected to cancel thoracentesis Reason For Visit: HAP Physical Exam Vital Signs: Temp Pulse Resp BP Pulse Ox 98.6 F 86 16 127/59 H 96 03/14/18 08:54 03/14/18 08:54 03/14/18 08:54 03/14/18 08:54 03/14/18 08:54 Pulse Oximeter Continuous Start: 03/09/18 02: 18 Freq: RTQ4 Status: Complete Document 03/14/18 08:00 HCR (Rec: 03/14/18 10:05 HCR [email or web address]) Pulse Oximetry Assessment Equipment Usage Equipment Discontinued Continuous SpO2 Machine # 1 Intake & Output 03/13/18 03/14/18 03/15/18 06:59 06:59 06:59 Intake Total 1892 2811 Output Total 4525 1100 Balance -2633 1711 Weight 77.2 kg 78.5 kg General appearance: PRESENT: no acute distress, cooperative, disheveled, well- developed, well-nourished Head exam: PRESENT: atraumatic, normocephalic Eye exam: PRESENT: conjunctiva pale, EOMI. ABSENT: nystagmus, periorbital swelling, scleral icterus Mouth exam: PRESENT: moist, neck supple Neck exam: ABSENT: carotid bruit, JVD, lymphadenopathy, thyromegaly, tracheal deviation, tracheostomy Respiratory exam: PRESENT: chest wall tenderness, crackles - Right lateral and posterior chest wall, decreased breath sounds, prolonged expiratory phas, rhonchi, unlabored. ABSENT: retraction, stridor, tachypnea Cardiovascular exam: PRESENT: RRR, +S1, +S2 Pulses: PRESENT: normal radial pulses GI/Abdominal exam: PRESENT: soft. ABSENT: tenderness Extremities exam: ABSENT: calf tenderness, clubbing, joint swelling Neurological exam: PRESENT: alert, awake Psychiatric exam: PRESENT: normal mood Skin exam: PRESENT: dry, warm Results Laboratory Results: 03/13/18 05:51 03/12/18 04:54 Impressions: Chest X-Ray 03/13/18 07:00 IMPRESSION: Persistent right lower lobe airspace disease with right pleural fluid/ pleural thickening, similar compared to 03/08/2018 and 03/06/2018 Assessment & Plan - Diagnosis (1) Pleural effusion, right Is this a current diagnosis for this admission?: Yes Plan: Patient and family procedure canceled (2) Fibromyalgia Is this a current diagnosis for this admission?: Yes (3) Healthcare-associated pneumonia Is this a current diagnosis for this admission?: Yes Plan: This patient was admitted 4 days after being discharged from a hospitalization would have to consider any pneumonitis to be hospital-acquired (4) Acute myeloid leukemia Is this a current diagnosis for this admission?: Yes Plan: As per oncology
--- NOTE | 2018-03-14 17:37 | PDOC DISCHARGE SUMMARY ---
General - Admit/Disc Date/PCP Admission Date/Primary Care Provider: 03/11/18 16:39 ZACH PRUITT MD Discharge Date: 03/14/18 - Discharge Diagnosis (1) Healthcare-associated pneumonia Is this a current diagnosis for this admission?: Yes (2) Paroxysmal atrial fibrillation Is this a current diagnosis for this admission?: No (3) Chronic pain Is this a current diagnosis for this admission?: Yes - Additional Information Discharge Diet: As Tolerated, Cardiac Discharge Activity: Activity As Tolerated Prescriptions: Gabapentin [Neurontin 100 mg Capsule] 100 mg PO Q12 #60 capsule Levofloxacin [Levaquin 750 mg Tablet] 750 mg PO DAILY #5 tablet Home Medications: Apixaban [Eliquis 5 mg Tablet] 5 mg PO Q12 03/09/18 Atorvastatin Calcium [Lipitor 40 mg Tablet] 40 mg PO DAILY 03/09/18 Diltiazem HCl [Diltiazem ER] 120 mg PO DAILY 03/09/18 Dronabinol [Marinol] 5 mg PO QHS 03/09/18 Duloxetine HCl [Cymbalta] 30 mg PO DAILY 03/09/18 Hydromorphone HCl [Dilaudid] 4 mg PO Q4HP PRN 03/09/18 Gabapentin [Neurontin 100 mg Capsule] 100 mg PO Q12 #60 capsule 03/14/18 Levofloxacin [Levaquin 750 mg Tablet] 750 mg PO DAILY #5 tablet 03/14/18 Prochlorperazine Maleate [Compazine 10 mg Tablet] 10 mg PO Q8 tablet 03/14/18 Sennosides/Docusate 8.6-50 mg [Senna Plus Tablet] 1 each PO BIDP PRN tablet 04/21 History of Present Illness History of Present Illness: KIRILL KINGSLEY is a 77 year old female with a PMH of GERD, arthritis, fibromyalgia, chronic pain, anemia, hemochromatosis, AML, and atrial fibrillation. Patient has been in our facility 03/06 and was diagnosed with right middle lobe pneumonia after CT of the chest was done, initially was plan to admit the patient but patient and decline as she had a very important appointment the next day with her GI doctor. Her decided to bring her again on the same day as he feels that she is having shallow breathing , patient is not hypoxic but has right side pleuritic chest pain. Patient is ambulatory with a cane but has been weaker for the last 2 days, patient is not tachypneic or febrile. Patient was admitted at [facility] last week from to Sunday with a new diagnosis of atrial fibrillation and was started on Eliquis. Denies cough, phlegm, wheezing, fever, dizziness, lightheadedness, abdominal pain, diarrhea or constipation. Hospital Course Hospital Course: Ms. Kingsley is a 77 yr old female with a PMH of GERD, arthritis, fibromyalgia, chronic pain, anemia, hemochromatosis, AML, and atrial fibrillation on Eliquis who presented with pleuritic right-sided chest pain and was found to have a right-sided pneumonia with effusion. She does have prior history of parapneumonic effusions. She was started on Cefepime and did have improvement of her right sided pleuritic chest pain. Pulmonology was also consulted. Due to her previous right sided effusions, pulm recommended diagnostic thoracentesis. Patient was switched to heparin drip and Eliquis was held for contemplated procedure. Upon rediscussion of plan, patient as well as expressed apprehensions over the procedure due to her multiple medical issues. They were also not amenable at the moment to the potential risk of pneumothorax from the thoracentesis. They expressed they'd rather continue treating the pneumonia with antibiotics and then re-evaluating the effusion on ff-up with PCP and pulm. says if there is recurrence n the future or persistence of right sided pleural effusion, they they would reconsider pursuing the procedure from there. Patient has been stable and is saturating well on room air with no sign of any distress. She will be sent home on a 5 day course of Levofloxacin and will ff-up with pulm in 2 weeks. Patient also has history of constipation which was aggravated when she was started on opiates. On further questioning why she is on a lot of opiates, she said that she was in significant pain a few years back hence was started on these medications. Her pain is very well controlled. She complains of chronic generalized back tenderness very consistent with fibromyalgia. Discussed in length with patient and patient's about the need to wean patient off the opiates. PO Dilaudid switched to prn. Oxycodone was discontinued. Neurontin was also added. Her pain was well controlled even after taking off the oxycodone. She takes methylnaltrexone at home for constipation. Per patient's , her constipation only responds to methylnaltrexone. Physical Exam Vital Signs: Temp Pulse Resp BP Pulse Ox 98.6 F 86 16 127/59 H 96 03/14/18 08:54 03/14/18 08:54 03/14/18 08:54 03/14/18 08:54 03/14/18 08:54 Pulse Oximeter Continuous Start: 03/09/18 02: 18 Freq: RTQ4 Status: Complete Document 03/14/18 08:00 HCR (Rec: 03/14/18 10:05 HCR [id number]) Pulse Oximetry Assessment Equipment Usage Equipment Discontinued Continuous SpO2 Machine # 1 Intake & Output 03/13/18 03/14/18 03/15/18 06:59 06:59 06:59 Intake Total 1892 2811 Output Total 4525 1100 Balance -2633 1711 Weight 170 lb 3.15 oz 173 lb 1.006 oz General appearance: PRESENT: no acute distress, well-developed, well-nourished Head exam: PRESENT: atraumatic, normocephalic Eye exam: PRESENT: conjunctiva pink, EOMI, PERRLA. ABSENT: scleral icterus Ear exam: PRESENT: normal external ear exam Mouth exam: PRESENT: moist, tongue midline Neck exam: ABSENT: carotid bruit, JVD, lymphadenopathy, thyromegaly Respiratory exam: PRESENT: clear to auscultation betty, decreased breath sounds - slightly decreased BS on the right base. ABSENT: rales, rhonchi, wheezes Cardiovascular exam: PRESENT: RRR. ABSENT: diastolic murmur, rubs, systolic murmur Pulses: PRESENT: normal dorsalis pedis pul Vascular exam: PRESENT: normal capillary refill GI/Abdominal exam: PRESENT: normal bowel sounds, soft. ABSENT: distended, guarding, mass, organolmegaly, rebound, tenderness Rectal exam: PRESENT: deferred Neurological exam: PRESENT: alert, awake, oriented to person, oriented to place , oriented to time, oriented to situation, CN II-XII grossly intact. ABSENT: motor sensory deficit Skin exam: PRESENT: dry, intact, warm. ABSENT: cyanosis, rash Results Laboratory Results: 03/13/18 05:51 03/12/18 04:54 Impressions: Chest X-Ray 03/13/18 07:00 IMPRESSION: Persistent right lower lobe airspace disease with right pleural fluid/ pleural thickening, similar compared to 03/08/2018 and 03/06/2018 Qualifiers - * PATIENT BEING DISCHARGED WITH ANY OF THE FOLLOWING DIAGNOSIS: No
== END 2018-03-14 12:26 | disposition home or self-care (01) | DRG 194 ==
LOC: ER 20:33 → EH 03-09 02:34 → 4N 03-09 03:33 → OBSVTOIN 03-11 16:39
PROVIDERS: ADMIT Internal Medicine; ATTEND Internal Medicine
DX: J18.9 Pneumonia, unspecified organism (principal); C92.00 Acute myeloblastic leukemia, not having achieved remission; I48.0 Paroxysmal atrial fibrillation; K21.9 Gastro-esophageal reflux disease without esophagitis; M79.7 Fibromyalgia; D64.9 Anemia, unspecified; Z79.01 Long term (current) use of anticoagulants; M19.90 Unspecified osteoarthritis, unspecified site; Z53.29 Procedure and treatment not carried out because of patient's decision for other reasons; K59.00 Constipation, unspecified; Z79.891 Long term (current) use of opiate analgesic; E83.111 Hemochromatosis due to repeated red blood cell transfusions; E78.5 Hyperlipidemia, unspecified; Z90.49 Acquired absence of other specified parts of digestive tract; Z90.710 Acquired absence of both cervix and uterus; Z82.61 Family history of arthritis; Z82.3 Family history of stroke; Z80.9 Family history of malignant neoplasm, unspecified; Z79.899 Other long term (current) drug therapy; Z88.2 Allergy status to sulfonamides; Z88.7 Allergy status to serum and vaccine; Z91.041 Radiographic dye allergy status
CPT/HCPCS: 36415; 71045; 80053; 81001; 82803; 83615; 84155; 84484; 85025; 85027; 85610; 85730; 87040; 87070; 87205; 93005; 93010; 94762; 94799; 96374; 99285; G0378; G8978-GP; G8979-GP; J0692; J1170; J1644; J2405; J3490; J7030; S0119; S0183

== ENCOUNTER → 2018-09-09 | Outpatient (CLI) | payer MEDICARE ==
--- NOTE | 2018-09-09 14:37 | RADIOLOGY REPORT (SQ) ---
EXAM DESCRIPTION: CT ABD/PELVIS NO ORAL OR IV COMPLETED DATE/TIME: 09/09/2018 2:02 pm REASON FOR STUDY: UNSPECIFIED ABDOMINAL PAIN R10.9 UNSPECIFIED ABDOMINAL PAIN COMPARISON: 08/26/2015 TECHNIQUE: CT scan of the abdomen and pelvis performed without intravenous or oral contrast. Images reviewed with lung, soft tissue, and bone windows. Reconstructed coronal and sagittal MPR images revi ewed. All images stored on PACS. All CT scanners at this facility use dose modulation, iterative reconstruction, and/or weight based d osing when appropriate to reduce radiation dose to as low as reasonably achievable (ALARA). [facility]: Dose Right [facility]: CareDose [facility]: Dose Right [facility]: Teradose 4D [facility]: [employer] RADIATION DOSE: CT Rad equipment meets quality standard of care and radiation dose reduction techniq ues were employed. CTDIvol: 7.8 mGy. DLP: 397 mGy-cm.mGy. LIMITATIONS: None. FINDINGS: LOWER CHEST: No significant findings. No nodules or infiltrates. NON-CONTRASTED LIVER, SPLEEN, ADRENALS: Liver is unremarkable. Splenomegaly is present. Normal adre nal glands. PANCREAS: Considerable pancreatic atrophy. No mass. No dilatation of the pancreatic duct. GALLBLADDER: Surgically absent. RIGHT KIDNEY AND URETER: No suspicious masses. Assessment limited by lack of IV contrast. No signif icant calcifications. No hydronephrosis or hydroureter. LEFT KIDNEY AND URETER: No suspicious masses. Assessment limited by lack of IV contrast. No signifi cant calcifications. No hydronephrosis or hydroureter. AORTA AND RETROPERITONEUM: No aneurysm. No retroperitoneal masses or adenopathy. BOWEL AND PERITONEAL CAVITY: Surgical changes. No obvious masses or inflammatory changes. Considera ble stool is present in the colon. APPENDIX: Not identified. PELVIS, BLADDER, AND ABDOMINAL WALL:No abnormal masses. No free fluid. Bladder normal. BONES: No significant findings. OTHER: No other significant finding. IMPRESSION: Splenomegaly. Pancreatic atrophy. No mass. Constipation. COMMENT: Quality ID # [id number]: Final reports with documentation of one or more dose reduction techniques (e.g., Automated exposure control, adjustment of the mA and/or kV according to patient size, use of iterative reconstruction technique) TECHNICAL DOCUMENTATION: JOB ID: [id number] [email or web address]- All Rights Reserved Reading location - IP/workstation name: [email or web address]
== END ==
LOC: RAD 13:32
PROVIDERS: ATTEND Urology
DX: K59.00 Constipation, unspecified (principal); R16.1 Splenomegaly, not elsewhere classified; R10.9 Unspecified abdominal pain
CPT/HCPCS: 74176

== ENCOUNTER 2018-11-27 11:32 | Emergency (ER) | payer MEDICARE ==
[2018-11-27] MEDS ORDERED: ONDANSETRON HCL INJ/PF 4 MG/2 ML SDV IV ONE ×2 (12:04→16:30)
--- NOTE | 2018-11-27 12:05 | ER Document Report ---
ED Medical Screen (RME) - General Chief Complaint: Abdominal Pain Stated Complaint: ABDOMINAL PAIN Time Seen by Provider: 11/27/18 11:58 Primary Care Provider: HAIM CARRINGTON MD [Primary Care Provider] - Follow up as needed Mode of Arrival: Wheelchair Information source: Patient Notes: Patient presents complaining of generalized abdominal pain for the past 4 days with nausea and vomiting. Patient reports problems with constipation with no bowel movement for the past 10 days. Patient does take chronic narcotics. Patient without any fever. Patient states she has taken Dulcolax [id number] without improvement of her symptoms. hx: IBS, fibromyalgia, AML leukemia I have greeted and performed a rapid initial assessment of this patient. A comprehensive ED assessment and evaluation of the patient, analysis of test results and completion of the medical decision making process will be conducted by additional ED providers. TRAVEL OUTSIDE OF THE [place] IN LAST 30 DAYS: No - Related Data Allergies/Adverse Reactions: Iodinated Contrast- Oral and IV Dye [IV Dye, Iodine Containing] Allergy (Severe, Verified 11/27/18 11:33) Anaphylaxis Sulfa (Sulfonamide Antibiotics) Allergy (Severe, Verified 11/27/18 11:33) adhesive tape Allergy (Mild, Verified 11/27/18 11:33) Hives tetanus toxoid, adsorbed Allergy (Verified 11/27/18 11:33) Tetanus Vaccines and Toxoid [Tetanus] Allergy (Verified 11/27/18 11:33) nitrofurantoin macrocrystalline [From Macrobid] Adverse Reaction (Severe, Verifi ed 11/27/18 11:33) Hives, breathing problems Past Medical History - Social History Frequency of alcohol use: None Drug Abuse: None - Past Medical History Cardiac Medical History: Reports: Hx Atrial Fibrillation, Hx Hypercholesterolemia Pulmonary Medical History: Reports: Hx Asthma, Hx Bronchitis, Hx Pneumonia Neurological Medical History: Reports: Hx Cerebrovascular Accident Endocrine Medical History: Denies: Hx Diabetes Mellitus Type 1 Renal/ Medical History: Denies: Hx End Stage Renal Disease, Hx Peritoneal Dialysis Malignancy Medical History: 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 GI Medical History: Reports: Hx Gastroesophageal Reflux Disease, Hx Irritable Bowel, Hx Endoscopy. Denies: Hx Crohn's Disease, Hx Ulcerative Colitis Musculoskeltal Medical History: Reports Hx Arthritis, Reports Hx Fibromyalgia, Reports Hx Musculoskeletal Trauma Psychiatric Medical History: Reports: Hx Anxiety Traumatic Medical History: Denies: Hx Gunshot Wound, Hx Pneumothorax, Hx Traumatic Brain Injury Infectious Medical History: Denies: Hx C-Diff, Hx HIV Past Surgical History: Reports: Hx Abdominal Surgery - colon resection, Hx Appendectomy, Hx Bowel Surgery - colectomy, Hx Breast Surgery - L breast lump; non-cancerous, Hx Cholecystectomy, Hx Hysterectomy, Hx Orthopedic Surgery - L knee--torn meniscus, Hx Tonsillectomy - Immunizations Immunizations up to date: Yes Hx Diphtheria, Pertussis, Tetanus Vaccination: Yes - 2009 allergic to it Physical Exam - Vital signs Vitals: Temp Pulse Resp BP Pulse Ox 98.1 F 99 18 125/71 98 11/27/18 11:40 11/27/18 11:40 11/27/18 11:40 11/27/18 11:40 11/27/18 11:40 - Abdominal Tenderness: Tender - Generalized abdominal tenderness Course - Vital Signs Vital signs: Temp Pulse Resp BP Pulse Ox 98.1 F 99 18 125/71 98 11/27/18 11:40 11/27/18 11:40 11/27/18 11:40 11/27/18 11:40 11/27/18 11:40 Doctor's Discharge - Discharge Referrals: HAIM CARRINGTON MD [Primary Care Provider] - Follow up as needed
[2018-11-27 12:33] LABS: HEMOGLOBIN 12.7 g/dL (12.0-15.5); MEAN CORPUSCULAR HEMOGLOBIN 28.6 pg (27.0-33.4); MEAN CORPUSCULAR HGB CONC 33.5 g/dL (32.0-36.0); MEAN CORPUSCULAR VOLUME 85 fl (80-97); PLATELET COUNT 151 10^3/uL (150-450); RED BLOOD COUNT 4.46 10^6/uL (3.72-5.28); RED CELL DISTRIBUTION WIDTH 18.9 % (11.5-14.0); WHITE BLOOD COUNT 4.6 10^3/uL (4.0-10.5)
[2018-11-27 12:54] LABS: ABSOLUTE LYMPHOCYTES# (MANUAL) 1.8 10^3/uL (0.5-4.7); ABSOLUTE MONOCYTES # (MANUAL) 0.4 10^3/uL (0.1-1.4); BAND NEUTROPHILS % (MANUAL) 1 % (3-5); BASOPHILS % (MANUAL) 0 % (0-2); EOSINOPHILS % (MANUAL) 1 % (0-6); LYMPHOCYTES % (MANUAL) 38 % (13-45); MONOCYTES % (MANUAL) 9 % (3-13); SEGMENTED NEUTROPHILS % (MAN) 50 % (42-78); TOTAL CELLS COUNTED 100
[2018-11-27 12:57] LABS: ALANINE AMINOTRANSFERASE 38 U/L (9-52); ALBUMIN 4.4 g/dL (3.5-5.0); ALKALINE PHOSPHATASE 152 U/L (38-126); ANION GAP 7 (5-19); ASPARTATE AMINO TRANSFERASE 44 U/L (14-36); BILIRUBIN,DIRECT 0.4 mg/dL (0.0-0.4); BILIRUBIN,TOTAL 1.3 mg/dL (0.2-1.3); BLOOD UREA NITROGEN 14 mg/dL (7-20); CALCIUM 9.6 mg/dL (8.4-10.2); CARBON DIOXIDE 30 mmol/L (22-30); CHLORIDE 101 mmol/L (98-107); GLUCOSE 126 mg/dL (75-110); POTASSIUM 4.5 mmol/L (3.6-5.0); SODIUM 137.9 mmol/L (137-145); TOTAL PROTEIN 7.6 g/dL (6.3-8.2)
[2018-11-27 12:58] LABS: LIPASE < 10.0 U/L (23-300)
[2018-11-27 12:59] LABS: ANISOCYTOSIS 2+; OVALOCYTES SLIGHT; PLATELET COMMENT ADEQUATE; POIKILOCYTOSIS SLIGHT; POLYCHROMASIA SLIGHT; TOXIC GRANULATION SLIGHT; TOXIC VACUOLATION PRESENT
--- NOTE | 2018-11-27 13:32 | RADIOLOGY REPORT (SQ) ---
EXAM DESCRIPTION: ACUTE ABDOMEN SERIES COMPLETED DATE/TIME: 11/27/2018 1:08 pm REASON FOR STUDY: abd pain, constipation COMPARISON: 05/02/2014. NUMBER OF VIEWS: Three views. TECHNIQUE: Frontal chest, supine abdomen and upright/decubitus abdomen radiographic images acquired. LIMITATIONS: None. FINDINGS: CHEST: Lungs clear of infiltrates. FREE AIR: None. No abnormal gas collections. BOWEL GAS PATTERN: Nonobstructive pattern. Moderate stool in the descending colon and rectosigmoid. No dilated loops or air fluid levels. CALCIFICATIONS: No suspicious calcifications. HARDWARE: Surgical clips. SOFT TISSUES: No gross mass or suggestion of organomegaly. BONES: No acute fracture. No worrisome bone lesions. OTHER: No other significant finding. IMPRESSION: NO RADIOGRAPHIC EVIDENCE FOR ACUTE ABDOMINAL DISEASE. MODERATE STOOL, POSSIBLE CONSTIPA TION. TECHNICAL DOCUMENTATION: JOB ID: [id number]- All Rights Reserved Reading location - IP/workstation name: [email or web address]
[2018-11-27 14:20] LABS: APPEARANCE,URINE CLOUDY; BILIRUBIN,URINE NEGATIVE (NEGATIVE); COLOR,URINE AMBER; GLUCOSE, URINE NEGATIVE (NEGATIVE); KETONES,URINE NEGATIVE (NEGATIVE); LEUKOCYTE ESTERASE,URINE NEGATIVE (NEGATIVE); NITRITE,URINE NEGATIVE (NEGATIVE); PROTEIN,URINE NEGATIVE (NEGATIVE); URINE SPECIFIC GRAVITY 1.016
--- NOTE | 2018-11-27 17:12 | ER Document Report ---
ED General - General Chief Complaint: Abdominal Pain Stated Complaint: ABDOMINAL PAIN Time Seen by Provider: 11/27/18 11:58 Primary Care Provider: HAIM CARRINGTON MD [Primary Care Provider] - Follow up as needed Mode of Arrival: Wheelchair Information source: Patient, Relative, [facility] Records Notes: 78-year-old female with chronic constipation, fibromyalgia, hyperlipidemia, atrial fibrillation, remote history of AML presents with complaint of abdominal pain and constipation. Patient has generalized abdominal pain that she describes as pressure for the last 4 days. She has a chronic nausea ever since her diagnosis of AML several years ago. Patient reports problems with constipation with no bowel movement for the past 10 days. Patient does take chronic narcotics. Patient without any fever, chest pain, shortness of breath, dysuria, hematuria, back pain. Patient states she has taken Dulcolax [id number] without improvement of her symptoms. Patient has not been vomiting. She has had flatus. TRAVEL OUTSIDE OF THE [place] IN LAST 30 DAYS: No - HPI Onset: Other Onset/Duration: Gradual, Persistent Quality of pain: Achy Severity: Mild Associated symptoms: Nausea. denies: Chest pain, Diarrhea, Fever, Vomiting, Shortness of breath, Slow to respond, Weakness Exacerbated by: Denies Relieved by: Denies Similar symptoms previously: Yes Recently seen / treated by doctor: Yes - Related Data Allergies/Adverse Reactions: Iodinated Contrast- Oral and IV Dye [IV Dye, Iodine Containing] Allergy (Severe, Verified 11/27/18 11:33) Anaphylaxis Sulfa (Sulfonamide Antibiotics) Allergy (Severe, Verified 11/27/18 11:33) adhesive tape Allergy (Mild, Verified 11/27/18 11:33) Hives tetanus toxoid, adsorbed Allergy (Verified 11/27/18 11:33) Tetanus Vaccines and Toxoid [Tetanus] Allergy (Verified 11/27/18 11:33) nitrofurantoin macrocrystalline [From Macrobid] Adverse Reaction (Severe, Verified 11/27/18 11:33) Hives, breathing problems Past Medical History - General Information source: Patient - Social History Smoking Status: Never Smoker Frequency of alcohol use: None Drug Abuse: None Lives with: Spouse/Significant other Family History: Arthritis, CAD, COPD, CVA, DM, Hyperlipidemia, Hypertension, Malignancy. denies: Thyroid Disfunction Patient has suicidal ideation: No Patient has homicidal ideation: No - Past Medical History Cardiac Medical History: Reports: Hx Atrial Fibrillation, Hx Hypercholesterolemia Pulmonary Medical History: Reports: Hx Asthma, Hx Bronchitis, Hx Pneumonia Neurological Medical History: Reports: Hx Cerebrovascular Accident Endocrine Medical History: Denies: Hx Diabetes Mellitus Type 1 Renal/ Medical History: Denies: Hx End Stage Renal Disease, Hx Peritoneal Dialysis Malignancy Medical History: 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 GI Medical History: Reports: Hx Gastroesophageal Reflux Disease, Hx Irritable Bowel, Hx Endoscopy. Denies: Hx Crohn's Disease, Hx Ulcerative Colitis Musculoskeletal Medical History: Reports Hx Arthritis, Reports Hx Fibromyalgia, Reports Hx Musculoskeletal Trauma Psychiatric Medical History: Reports: Hx Anxiety Traumatic Medical History: Denies: Hx Gunshot Wound, Hx Pneumothorax, Hx Traumatic Brain Injury Infectious Medical History: Denies: Hx C-Diff, Hx HIV Past Surgical History: Reports: Hx Abdominal Surgery - colon resection, Hx Appendectomy, Hx Bowel Surgery - colectomy, Hx Breast Surgery - L breast lump; non-cancerous, Hx Cholecystectomy, Hx Hysterectomy, Hx Orthopedic Surgery - L knee--torn meniscus, Hx Tonsillectomy - Immunizations Immunizations up to date: Yes Hx Diphtheria, Pertussis, Tetanus Vaccination: Yes - 2009 allergic to it Review of Systems - Review of Systems Notes: REVIEW OF SYSTEMS: CONSTITUTIONAL : Denies fever, chills, or sweats. Denies recent illness. Denies weight loss, recent hospitalizations. EENT: Denies visual changes, eye pain. Denies sore throat, oral lesions, difficulty swallowing. CARDIOVASCULAR: Denies chest pain. Denies palpitations. Denies lower extremity edema. RESPIRATORY: Denies cough. Denies shortness of breath, wheezing. GASTROINTESTINAL: Denies abdominal distention. Denies vomiting, or diarrhea. Denies blood in vomitus, stools, or per rectum. Denies black, tarry stools. GENITOURINARY: Denies difficulty urinating, painful urination, frequency, blood in urine, or vaginal discharge. MUSCULOSKELETAL: Denies back or neck pain or stiffness. Denies joint pain or swelling. SKIN: Denies rash, lesions or sores. HEMATOLOGIC : Denies easy bruising or bleeding. LYMPHATIC: Denies swollen glands. NEUROLOGICAL: Denies confusion or altered mental status. Denies loss of consciousness. Denies dizziness or lightheadedness. Denies headache. Denies weakness or paralysis. Denies problems difficulty with ambulation, slurred speech. Denies sensory loss, numbness, or tingling. Denies seizures. PSYCHIATRIC: Denies anxiety or stress. Denies depression, suicidal ideation, or homicidal ideation. Denies visual or auditory hallucinations. Physical Exam - Vital signs Vitals: Temp Pulse Resp BP Pulse Ox 98.1 F 99 18 125/71 98 11/27/18 11:40 11/27/18 11:40 11/27/18 11:40 11/27/18 11:40 11/27/18 11:40 - Notes Notes: PHYSICAL EXAMINATION: GENERAL: Well-appearing, well-nourished and in no acute distress. HEAD: Atraumatic, normocephalic. EYES: Pupils equal round and reactive to light, extraocular movements intact, conjunctiva are normal. ENT: Nares patent, oropharynx clear without exudates. Moist mucous membranes. NECK: Normal range of motion, supple without lymphadenopathy LUNGS: Breath sounds clear to auscultation bilaterally and equal. No wheezes rales or rhonchi. HEART: Regular rate and rhythm without murmurs ABDOMEN: Soft, nontender, nondistended abdomen. No guarding, no rebound. No masses appreciated. Female : deferred Musculoskeletal: Normal range of motion, no pitting or edema. No cyanosis. NEUROLOGICAL: Cranial nerves grossly intact. Normal speech, normal gait. Normal sensory, motor exams PSYCH: Normal mood, normal affect. SKIN: Warm, Dry, normal turgor, no rashes or lesions noted. Course - Re-evaluation Re-evalutation: 11/27/18 21:25 Laboratory 11/27/18 11/27/18 11/27/18 12:12 12:12 12:12 WBC 4.6 RBC 4.46 Hgb 12.7 Hct 38.0 MCV 85 MCH 28.6 MCHC 33.5 RDW 18.9 H Plt Count 151 Total Counted 100 Seg Neutrophils % Not Reportable Seg Neuts % (Manual) 50 Band Neutrophils % 1 L Lymphocytes % Not Reportable Lymphocytes % (Manual) 38 Atypical Lymphs % 1 Monocytes % Not Reportable Monocytes % (Manual) 9 Eosinophils % Not Reportable Eosinophils % (Manual) 1 Basophils % Not Reportable Basophils % (Manual) 0 Absolute Neutrophils Not Reportable Abs Neuts (Manual) 2.3 Absolute Lymphocytes Not Reportable Abs Lymphs (Manual) 1.8 Absolute Monocytes Not Reportable Abs Monocytes (Manual) 0.4 Absolute Eosinophils Not Reportable Absolute Eos (Manual) 0.0 Absolute Basophils Not Reportable Abs Basophils (Manual) 0.0 Toxic Granulation SLIGHT Toxic Vacuolation PRESENT Platelet Comment ADEQUATE Polychromasia SLIGHT Poikilocytosis SLIGHT Basophilic Stippling PRESENT Anisocytosis 2+ Ovalocytes SLIGHT Sodium 137.9 Potassium 4.5 Chloride 101 Carbon Dioxide 30 Anion Gap 7 BUN 14 Creatinine 0.68 Est GFR ( Amer) > 60 Est GFR (Non-Af Amer) > 60 Glucose 126 H Lactic Acid 1.1 Calcium 9.6 Total Bilirubin 1.3 Direct Bilirubin 0.4 Neonat Total Bilirubin Not Reportable Neonat Direct Bilirubin Not Reportable Neonat Indirect Bili Not Reportable AST 44 H ALT 38 Alkaline Phosphatase 152 H Total Protein 7.6 Albumin 4.4 Lipase < 10.0 L Urine Color Urine Appearance Urine pH Ur Specific [place] Urine Protein Urine Glucose (UA) Urine Ketones Urine Blood Urine Nitrite Urine Bilirubin Urine Urobilinogen Ur Leukocyte Esterase Urine WBC (Auto) Urine RBC (Auto) U Hyaline Cast (Auto) Urine Bacteria (Auto) Squamous Epi Cells Auto Urine Mucus (Auto) Urine Ascorbic Acid 11/27/18 14:05 WBC RBC Hgb Hct MCV MCH MCHC RDW Plt Count Total Counted Seg Neutrophils % Seg Neuts % (Manual) Band Neutrophils % Lymphocytes % Lymphocytes % (Manual) Atypical Lymphs % Monocytes % Monocytes % (Manual) Eosinophils % Eosinophils % (Manual) Basophils % Basophils % (Manual) Absolute Neutrophils Abs Neuts (Manual) Absolute Lymphocytes Abs Lymphs (Manual) Absolute Monocytes Abs Monocytes (Manual) Absolute Eosinophils Absolute Eos (Manual) Absolute Basophils Abs Basophils (Manual) Toxic Granulation Toxic Vacuolation Platelet Comment Polychromasia Poikilocytosis Basophilic Stippling Anisocytosis Ovalocytes Sodium Potassium Chloride Carbon Dioxide Anion Gap BUN Creatinine Est GFR ( Amer) Est GFR (Non-Af Amer) Glucose Lactic Acid Calcium Total Bilirubin Direct Bilirubin Neonat Total Bilirubin Neonat Direct Bilirubin Neonat Indirect Bili AST ALT Alkaline Phosphatase Total Protein Albumin Lipase Urine Color TYRA Urine Appearance CLOUDY Urine pH 6.0 Ur Specific [place] 1.016 Urine Protein NEGATIVE Urine Glucose (UA) NEGATIVE Urine Ketones NEGATIVE Urine Blood SMALL H Urine Nitrite NEGATIVE Urine Bilirubin NEGATIVE Urine Urobilinogen 2.0 H Ur Leukocyte Esterase NEGATIVE Urine WBC (Auto) 2 Urine RBC (Auto) 8 U Hyaline Cast (Auto) 1 Urine Bacteria (Auto) 1+ Squamous Epi Cells Auto 5 Urine Mucus (Auto) FEW Urine Ascorbic Acid NEGATIVE Acute Abdomen Series 11/27/18 12:02 IMPRESSION: NO RADIOGRAPHIC EVIDENCE FOR ACUTE ABDOMINAL DISEASE. MODERATE STOOL, POSSIBLE CONSTIPATION. Temp Pulse Resp BP Pulse Ox 98.5 F 76 16 108/72 100 11/27/18 17:35 11/27/18 17:35 11/27/18 17:35 11/27/18 17:35 11/27/18 17:35 78-year-old female with chronic constipation presents with complaint of abdominal pain and constipation. Vitals were reviewed and within normal limits. Patient's abdominal exam is benign. No significant laboratory findings. Acute abdominal series does show a moderate amount of stool. Patient was offered mag citrate and a soapsuds enema in the emergency department but she declines and would like a prescription for both so that she can go home. is at the bedside and agrees with this decision. I did discuss obtaining a CAT scan because of the patient's complex surgical abdominal history but patient and declined at this time. Patient was discharged home in stable condition. Patient was evaluated and treated as appropriate for the patient's presenting symptoms and complaint, with consideration of any critical or life threatening conditions that may be associated with their obtained history and exam as noted above. All results were discussed with patient and her who is at the bedside. Patient provided the opportunity to ask questions, and express concern s. Patient was educated on treatments based on their presumed diagnosis as noted above. At this time we will discharge the patient with return precautions and follow-up recommendations. Verbal discharge instructions given a the bedside. Medication warnings reviewed. Patient is in agreement with this plan and has verbalized understanding of return precautions. After careful consideration I feel that that patient can be safely discharged from the emergency department, they were advised to followup with a primary care physician in 2-3 days. Dictation on this chart was performed using voice recognition software and may result in unintended grammatical, spelling, syntax or errors. - Vital Signs Vital signs: Temp Pulse Resp BP Pulse Ox 98.5 F 76 16 108/72 100 11/27/18 17:35 11/27/18 17:35 11/27/18 17:35 11/27/18 17:35 11/27/18 17:35 - Laboratory Result Diagrams: 11/27/18 12:12 11/27/18 12:12 Laboratory results interpreted by me: 11/27/18 11/27/18 11/27/18 12:12 12:12 14:05 RDW 18.9 H Band Neutrophils % 1 L Glucose 126 H AST 44 H Alkaline Phosphatase 152 H Lipase < 10.0 L Urine Blood SMALL H Urine Urobilinogen 2.0 H - Diagnostic Test Radiology reviewed: Image reviewed, Reports reviewed - EKG Interpretation by Me EKG shows normal: Sinus rhythm Rate: Normal Rhythm: NSR Discharge - Discharge Clinical Impression: Chronic nausea Constipation Qualifiers: Constipation type: unspecified constipation type Qualified Code(s): K59.00 - Constipation, unspecified Abdominal pain Qualifiers: Abdominal location: generalized Qualified Code(s): R10.84 - Generalized abdominal pain Condition: Good Disposition: HOME, SELF-CARE Instructions: Abdominal Pain ([facility]), Constipation ([facility]) Additional Instructions: Follow up with your [id number] hours for further care or return to the ED IMMEDIATELY if symptoms worsen or you have any concerns. If you cannot afford to follow up with your primary care physician a list of low cost clinics have be en provided at the end of your discharge papers as well. Most prescribed medications have multiple side effects. The safest thing to do is when filling your prescription speak to your pharmacist regarding possible interactions with your normal home medications and over the counter medications such as Ibuprofen, Tylenol, Benadryl. If you experience any symptoms that cause you discomfort or concern you should discontinue the medication immediately and return to the emergency room or call your primary care physician. Prescriptions: Na Phos,M-B/Na Phos,Di-Ba [Fleet Enema (Adult) 133 ml] 1 applic AK DAILYP PRN #3 enema PRN Reason: Referrals: HAIM CARRINGTON MD [Primary Care Provider] - Follow up as needed
[2018-11-27 17:37] VITALS: BP 108/72
--- NOTE | 2018-11-27 21:57 | EKG REPORT ---
SEVERITY:- NORMAL ECG - SINUS RHYTHM : Confirmed by: Diaz Reynolds 27-Nov-2018 21:57:07
== END 2018-11-27 17:35 | disposition home or self-care (01) ==
LOC: ER 11:32
DX: K59.00 Constipation, unspecified (principal); R10.84 Generalized abdominal pain; R11.0 Nausea; J45.909 Unspecified asthma, uncomplicated; M79.7 Fibromyalgia; Z79.891 Long term (current) use of opiate analgesic; Z87.892 Personal history of anaphylaxis; Z91.040 Latex allergy status; Z88.2 Allergy status to sulfonamides; Z91.048 Other nonmedicinal substance allergy status; Z88.7 Allergy status to serum and vaccine; Z85.6 Personal history of leukemia
CPT/HCPCS: 93005; 96376; 99284; 96374; 36415; 87086; 83605; 83690; 85025; 80053; 81001; 74022; 93010; J2405

== ENCOUNTER 2019-07-12 14:55 | Emergency (ER) | payer MEDICARE ==
[2019-07-12] MEDS ORDERED: LIDOCAINE 1% INJ-PF (10 MG/ML) 30 ML SDV IM ONE (15:05)
[2019-07-12] MEDS ORDERED: CEFTRIAXONE INJ 1000 MG VIAL IM ONE (15:05)
--- NOTE | 2019-07-12 15:13 | ER Document Report ---
HPI - HPI Time Seen by Provider: 07/12/19 15:01 Notes: Pt presents to the ED with request for a nurse visit. Pt has outpt order from [facility] for 1 g ceftriaxone IM every 24 hours for the next 2 days. The ordering physician does not have privileges here at this hospital. Patient is being treated for urinary tract infection. She has no acute complaints today. Has not had fever. - REPRODUCTIVE Reproductive: DENIES: : Past Medical History - General Information source: Patient - Social History Smoking Status: Never Smoker Frequency of alcohol use: None Drug Abuse: None Family History: Arthritis, CAD, COPD, CVA, DM, Hyperlipidemia, Hypertension, Malignancy. denies: Thyroid Disfunction - Past Medical History Cardiac Medical History: Reports: Hx Atrial Fibrillation, Hx Hypercholesterolemia Pulmonary Medical History: Reports: Hx Asthma, Hx Bronchitis, Hx Pneumonia Neurological Medical History: Reports: Hx Cerebrovascular Accident Endocrine Medical History: Denies: Hx Diabetes Mellitus Type 1 Renal/ Medical History: Denies: Hx End Stage Renal Disease, Hx Peritoneal Dialysis Malignancy Medical History: 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 GI Medical History: Reports: Hx Gastroesophageal Reflux Disease, Hx Irritable Bowel, Hx Endoscopy. Denies: Hx Crohn's Disease, Hx Ulcerative Colitis Musculoskeletal Medical History: Reports Hx Arthritis, Reports Hx Fibromyalgia, Reports Hx Musculoskeletal Trauma Psychiatric Medical History: Reports: Hx Anxiety Traumatic Medical History: Denies: Hx Gunshot Wound, Hx Pneumothorax, Hx Traumatic Brain Injury Infectious Medical History: Denies: Hx C-Diff, Hx HIV Past Surgical History: Reports: Hx Abdominal Surgery - colon resection, Hx Appendectomy, Hx Bowel Surgery - colectomy, Hx Breast Surgery - L breast lump; non-cancerous, Hx Cholecystectomy, Hx Hysterectomy, Hx Orthopedic Surgery - L knee--torn meniscus, Hx Tonsillectomy - Immunizations Immunizations up to date: Yes Hx Diphtheria, Pertussis, Tetanus Vaccination: Yes - 2009 allergic to it Vertical Provider Document - CONSTITUTIONAL Notes: PHYSICAL EXAMINATION: GENERAL: Well-appearing, well-nourished and in no acute distress. HEAD: Atraumatic, normocephalic. EYES: Pupils equal round extraocular movements intact, conjunctiva are normal. ENT: Nares patent NECK: Normal range of motion LUNGS: No respiratory distress Musculoskeletal: Normal range of motion NEUROLOGICAL: Normal speech, normal gait. PSYCH: Normal mood, normal affect. SKIN: Warm, Dry, normal turgor, no rashes or lesions noted. - INFECTION CONTROL TRAVEL OUTSIDE OF THE [place] IN LAST 30 DAYS: No Course - Re-evaluation Re-evalutation: Order written for 1 g ceftriaxone, nurse visit folder initiated, written orders for tomorrow's dose executed as well. Discharge - Discharge Clinical Impression: Encounter for medication administration Urinary tract infection Qualifiers: Urinary tract infection type: site unspecified Hematuria presence: without hematuria Qualified Code(s): N39.0 - Urinary tract infection, site not specified Condition: Stable Disposition: HOME, SELF-CARE Additional Instructions: Please return to the front office representative of the emergency department tomorrow, let them know you are a nurse visit and here for your Rocephin injection. Referrals: HAIM CARRINGTON MD [Primary Care Provider] - Follow up as needed
[2019-07-12 15:20] VITALS: BP 109/59
== END 2019-07-12 16:05 | disposition home or self-care (01) ==
LOC: ER 14:55
DX: Z51.81 Encounter for therapeutic drug level monitoring (principal); N39.0 Urinary tract infection, site not specified
CPT/HCPCS: J3490; J0696; 96372; 99283

== ENCOUNTER 2020-01-07 15:46 | Emergency (ER) | payer MEDICARE ==
[2020-01-07] MEDS ORDERED: DIPHENHYDRAMINE HCL 50 MG/ML VIAL IV ONE (16:21)
[2020-01-07] MEDS ORDERED: FAMOTIDINE INJ/PF 20 MG/2 ML SDV IV ONE (16:21)
[2020-01-07] MEDS ORDERED: METHYLPREDNISOLONE INJ 125 MG/2 ML SDV IV ONE (16:21)
--- NOTE | 2020-01-07 16:24 | ER Document Report ---
ED General - General Chief Complaint: Rash Stated Complaint: SWELLING/ITCHING/HIVES Primary Care Provider: HAIM CARRINGTON MD [Primary Care Provider] - Follow up as needed Notes: Patient is 79-year-old white female with past medical history of cancer who presents the emergency department coming by her with a chief complaint of itching. There for about 6 days ago she began itching and having red raised lesions that appear and disappear all over. They report that the rash is nonspecific. They deny any triggering factors. No new foods, drinks or known exposures. She is not been sick recently. No airway compromise. No tongue or throat swelling. No difficulty breathing or trouble with secretions. Patient denies OUMOU inhibitor usage. TRAVEL OUTSIDE OF THE [place] IN LAST 30 DAYS: No - Related Data Allergies/Adverse Reactions: Iodinated Contrast Media [IV Dye, Iodine Containing] Allergy (Severe, Verified 07/13/19 15:13) Anaphylaxis Sulfa (Sulfonamide Antibiotics) Allergy (Severe, Verified 07/13/19 15:13) adhesive tape Allergy (Mild, Verified 07/13/19 15:13) Hives tetanus toxoid, adsorbed Allergy (Verified 07/13/19 15:13) Tetanus Vaccines and Toxoid [Tetanus] Allergy (Verified 07/13/19 15:13) nitrofurantoin macrocrystalline [From Macrobid] Adverse Reaction (Severe, Verified 07/13/19 15:13) Hives, breathing problems Past Medical History - Social History Smoking Status: Unknown if Ever Smoked Family History: Arthritis, CAD, COPD, CVA, DM, Hyperlipidemia, Hypertension, Malignancy. denies: Thyroid Disfunction Patient has homicidal ideation: No - Past Medical History Cardiac Medical History: Reports: Hx Atrial Fibrillation, Hx Hypercholesterolemia Pulmonary Medical History: Reports: Hx Asthma, Hx Bronchitis, Hx Pneumonia Neurological Medical History: Reports: Hx Cerebrovascular Accident Endocrine Medical History: Denies: Hx Diabetes Mellitus Type 1 Renal/ Medical History: Denies: Hx End Stage Renal Disease, Hx Peritoneal Dialysis Malignancy Medical History: 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 GI Medical History: Reports: Hx Gastroesophageal Reflux Disease, Hx Irritable Bowel, Hx Endoscopy. Denies: Hx Crohn's Disease, Hx Ulcerative Colitis Musculoskeletal Medical History: Reports Hx Arthritis, Reports Hx Fibromyalgia, Reports Hx Musculoskeletal Trauma Psychiatric Medical History: Reports: Hx Anxiety Traumatic Medical History: Denies: Hx Gunshot Wound, Hx Pneumothorax, Hx Traumatic Brain Injury Infectious Medical History: Denies: Hx C-Diff, Hx HIV Past Surgical History: Reports: Hx Abdominal Surgery - colon resection, Hx Appendectomy, Hx Bowel Surgery - colectomy, Hx Breast Surgery - L breast lump; non-cancerous, Hx Cholecystectomy, Hx Hysterectomy, Hx Orthopedic Surgery - L knee--torn meniscus, Hx Tonsillectomy - Immunizations Immunizations up to date: Yes Hx Diphtheria, Pertussis, Tetanus Vaccination: Yes - 2009 allergic to it Review of Systems - Review of Systems Constitutional: denies: Fever EENT: denies: Difficulty swallowing Cardiovascular: denies: Chest pain Respiratory: denies: Short of breath Gastrointestinal: denies: Abdominal pain Genitourinary: denies: Pain Female Genitourinary: denies: Vaginal discharge Musculoskeletal: denies: Muscle stiffness Skin: Change in color, Rash Hematologic/Lymphatic: denies: Easy bruising Neurological/Psychological: denies: Headaches Physical Exam - Vital signs Vitals: Temp Pulse Resp BP Pulse Ox 98.2 F 51 L 16 115/56 L 96 01/07/20 15:51 01/07/20 15:51 01/07/20 15:51 01/07/20 15:51 01/07/20 15:51 - General General appearance: Appears well, Alert In distress: None - HEENT Head: Normocephalic, Atraumatic Eyes: Normal Conjunctiva: Normal Extraocular movements intact: Yes Eyelashes: Normal Pupils: PERRL Ears: Normal Pharynx: Normal, Other - Patent airway. Handling secretions well. No sublingual or submental swelling. Neck: Normal, Supple - Respiratory Respiratory status: No respiratory distress Chest status: Nontender Breath sounds: Normal Chest palpation: Normal - Cardiovascular Rhythm: Regular Heart sounds: Normal auscultation - Neurological Neuro grossly intact: Yes Cognition: Normal Orientation: AAOx4 - Psychological Associated symptoms: Normal affect, Normal mood - Skin Skin Color: Other - Diffuse nonspecific erythematous wheals Course - Re-evaluation Re-evalutation: 01/07/20 17:49 Reevaluation at this time. Patient reports her itching has completely resolved. Rash is nearly gone. She feels much better, is relieved. Admits to some mild nausea. We will give some Zofran. Counseled him regarding the importance of outpatient follow-up and advised they return here any ER immediately with any new, persistent or worsening symptoms. They verbalized understood and agreed. - Vital Signs Vital signs: Temp Pulse Resp BP Pulse Ox 98.2 F 51 L 16 115/56 L 96 01/07/20 15:51 01/07/20 15:51 01/07/20 15:51 01/07/20 15:51 01/07/20 15:51 - Laboratory Result Diagrams: 01/07/20 16:38 01/07/20 16:38 Laboratory results interpreted by me: 01/07/20 01/07/20 16:38 16:38 RDW 16.7 H [place] % (Auto) 17.5 H Glucose 111 H AST 41 H Alkaline Phosphatase 143 H Discharge - Discharge Clinical Impression: Rash and nonspecific skin eruption Condition: Stable Disposition: HOME, SELF-CARE Instructions: Acute Allergic Reaction ([facility]) Additional Instructions: Follow-up with your regular doctor in 2 to 3 days for reevaluation. Return here or any ER immediately with any new, persistent or worsening symptoms. Prescriptions: Methylprednisolone [Medrol Dosepack (4 mg/Tab) 21 Tab/Dosepak] 21 tab PO ASDIR PRN 6 Days #1 dspk PRN Reason: Referrals: HAIM CARRINGTON MD [Primary Care Provider] - Follow up as needed
[2020-01-07 17:05] LABS: ABSOLUTE LYMPHOCYTES (AUTO) 1.4 10^3/uL (0.5-4.7); ABSOLUTE MONOCYTES (AUTO) 0.9 10^3/uL (0.1-1.4); ABSOLUTE NEUT (AUTO) 2.7 10^3/uL (1.7-8.2); BASOPHILS % (AUTO) 0.7 % (0-2); EOSINOPHILS % (AUTO) 0.2 % (0-6); HEMATOCRIT 38.3 % (36.0-47.0); HEMOGLOBIN 12.6 g/dL (12.0-15.5); LYMPHOCYTES % (AUTO) 28.3 % (13-45); MEAN CORPUSCULAR HEMOGLOBIN 29.3 pg (27.0-33.4); MEAN CORPUSCULAR VOLUME 89 fl (80-97); MONOCYTES % (AUTO) 17.5 % (3-13); PLATELET COUNT 153 10^3/uL (150-450); RED BLOOD COUNT 4.31 10^6/uL (3.72-5.28); RED CELL DISTRIBUTION WIDTH 16.7 % (11.5-14.0); SEGMENTED NEUTROPHILS % (AUTO) 53.3 % (42-78); TOTAL CELLS COUNTED % (AUTO) 100 %; WHITE BLOOD COUNT 5.1 10^3/uL (4.0-10.5)
[2020-01-07 17:14] LABS: ALBUMIN 4.1 g/dL (3.5-5.0); ALKALINE PHOSPHATASE 143 U/L (38-126); ANION GAP 7 (5-19); ASPARTATE AMINO TRANSFERASE 41 U/L (14-36); BILIRUBIN,TOTAL 1.3 mg/dL (0.2-1.3); BLOOD UREA NITROGEN 10 mg/dL (7-20); CALCIUM 9.4 mg/dL (8.4-10.2); CARBON DIOXIDE 25 mmol/L (22-30); CHLORIDE 105 mmol/L (98-107); GLUCOSE 111 mg/dL (75-110); TOTAL PROTEIN 7.4 g/dL (6.3-8.2)
[2020-01-07] MEDS ORDERED: ONDANSETRON ODT 4 MG TAB (6 TAB/ER DISP) PO PRN (17:49)
[2020-01-07 18:15] VITALS: BP 115/58
== END 2020-01-07 18:14 | disposition home or self-care (01) ==
LOC: ER 15:46
DX: L50.9 Urticaria, unspecified (principal); J45.909 Unspecified asthma, uncomplicated; Z87.892 Personal history of anaphylaxis; Z91.041 Radiographic dye allergy status; Z88.2 Allergy status to sulfonamides; Z91.018 Allergy to other foods; Z88.7 Allergy status to serum and vaccine
CPT/HCPCS: 99283; 96374; 96375; 36415; 85025; 80053; J1200; J2930; S0028; A9270

== ENCOUNTER → 2020-03-03 | Outpatient (CLI) | payer MEDICARE, MEDICAID ==
--- NOTE | 2020-03-03 18:57 | RADIOLOGY REPORT (SQ) ---
EXAM DESCRIPTION: VENOUS UNILATERAL LOWER IMAGES COMPLETED DATE/TIME: 03/03/2020 4:40 pm REASON FOR STUDY: LLE THROMBOSIS I82.402 ACUTE EMBOLISM AND THOMBOS UNSP DEEP VEINS OF L LOW COMPARISON: None. TECHNIQUE: Dynamic and static trivedi scale and color images acquired of the left leg venous system. Se lected spectral images acquired with additional compression and augmentation maneuvers. The contralat eral common femoral vein and saphenofemoral junction were also imaged. Images stored on PACS. LIMITATIONS: None. FINDINGS: COMMON FEMORAL: Normal phasicity, compression and augmentation. No visualized echogenic ma terial on trivedi scale. No defects on color images. FEMORAL: Normal compression and augmentation. No visualized echogenic material on trivedi scale. No defe cts on color images. POPLITEAL: Normal compression, augmentation. No visualized echogenic material on trivedi scale. No defec ts on color images. CALF VESSELS: Normal compression, augmentation. No visualized echogenic material on trivedi scale. No de fects on color images. GSV and SSV: Normal compression, augmentation. No visualized echogenic material on trivedi scale. No def ects on color images. ANY DEEP VENOUS INSUFFICIENCY: Not evaluated. ANY EVIDENCE OF POPLITEAL CYST: No. OTHER: No other significant finding. CONTRALATERAL COMMON FEMORAL VEIN AND SAPHENOFEMORAL JUNCTION: Normal phasicity, compression and augmentation. No visualized echogenic material on trivedi scale. No de fects on color images. IMPRESSION: NO EVIDENCE OF DVT OR SVT IN THE LEFT LEG. TECHNICAL DOCUMENTATION: JOB ID: [id number] 2010 [employer]- All Rights Reserved Reading location - IP/workstation name: [email or web address]
== END ==
LOC: SP 16:45
PROVIDERS: ATTEND Internal Medicine
DX: I82.402 Acute embolism and thrombosis of unspecified deep veins of left lower extremity (principal)
CPT/HCPCS: 93971